=== PATIENT | female | born 1940 | race Caucasian/White ===

== ENCOUNTER → 2019-05-03 10:08 | Outpatient (BNVA) | payer MEDICARE, MEDICAID, SELFPAY | PROVIDERS: Family Provider Nurse Practitioner Family; PCP Nurse Practitioner Family; Visit Provider Nurse Practitioner Family | DX: D64.9 Anemia, unspecified (principal); E11.9 Type 2 diabetes mellitus without complications | CPT/HCPCS: 80053; 80061; 83036; 83540; 85025 ==

== ENCOUNTER → 2019-10-04 10:38 | Outpatient (BNVA) | payer MEDICARE, MEDICAID, SELFPAY | PROVIDERS: Family Provider Nurse Practitioner Family; PCP Family Medicine; Visit Provider Family Medicine | DX: E78.5 Hyperlipidemia, unspecified (principal); E11.9 Type 2 diabetes mellitus without complications; K21.9 Gastro-esophageal reflux disease without esophagitis; A80.9 Acute poliomyelitis, unspecified; I10 Essential (primary) hypertension | CPT/HCPCS: 80053; 80061; 83036; 84443; 85025 ==

== ENCOUNTER 2019-10-12 06:00 | Outpatient (RCR) | payer MEDICARE, MEDICAID, SELFPAY | END 2019-10-18 23:59 | disposition home or self-care (01) | LOC: TPT 06:00 | PROVIDERS: PCP Family Medicine; Referring Provider Family Medicine; Visit Provider Family Medicine | DX: A80.9 Acute poliomyelitis, unspecified (principal) | CPT/HCPCS: 97110; 97161 ==

== ENCOUNTER 2019-10-19 06:00 | Outpatient (RCR) | payer MEDICARE, MEDICAID, SELFPAY | END 2019-11-18 23:59 | disposition home or self-care (01) | LOC: TPT 06:00 | PROVIDERS: PCP Family Medicine; Referring Provider Family Medicine; Visit Provider Family Medicine | DX: A80.9 Acute poliomyelitis, unspecified (principal) | CPT/HCPCS: 97110; 97164 ==

== ENCOUNTER 2019-11-19 06:00 | Outpatient (RCR) | payer MEDICARE, MEDICAID, SELFPAY | END 2019-12-19 23:59 | disposition home or self-care (01) | LOC: TPT 06:00 | PROVIDERS: PCP Family Medicine; Referring Provider Family Medicine; Visit Provider Family Medicine | DX: A80.9 Acute poliomyelitis, unspecified (principal) | CPT/HCPCS: 97110 ==

== ENCOUNTER 2019-12-20 06:00 | Outpatient (RCR) | payer MEDICARE, MEDICAID, SELFPAY | END 2019-12-21 23:00 | disposition home or self-care (01) | LOC: TPT 06:00 | PROVIDERS: PCP Family Medicine; Referring Provider Family Medicine; Visit Provider Family Medicine | DX: A80.9 Acute poliomyelitis, unspecified (principal) | CPT/HCPCS: 97110; 97162 ==

== ENCOUNTER 2020-01-10 10:21 | Outpatient (CLI) | payer MEDICARE, MEDICAID, SELFPAY ==
--- NOTE | 2020-01-10 10:46 | MM_ITS ---
WS: [id number] BILATERAL DIGITAL SCREENING MAMMOGRAPHY WITH CAD CLINICAL INFORMATION: SCREEN HISTORY: Screening mammogram. Reported possible sebaceous cysts in the area of sternum. COMPARISON: TECHNIQUE: Bilateral CC and MLO views. FINDINGS: The breasts are composed of heterogeneous fibroglandular density tissue, which can limit the detectio n of small underlying mass lesions. No suspicious mass, asymmetry, calcifications, or architectural d istortion. No evidence of malignancy. Secretory and vascular calcifications. Lucent centered calcific ations. MM/[place] [id number] IMPRESSION: BI-RADS: 2-Benign FOLLOW UP: 1 Year Follow-up Recommend return to annual screening mammography.
== END 2020-01-10 10:22 | disposition home or self-care (01) ==
LOC: RADSHAW 10:27
PROVIDERS: PCP Family Medicine; Visit Provider Family Medicine
DX: Z12.31 Encounter for screening mammogram for malignant neoplasm of breast (principal)
CPT/HCPCS: 77067

== ENCOUNTER → 2020-05-01 11:44 | Outpatient (BNVA) | payer MEDICARE, MEDICAID, SELFPAY | PROVIDERS: PCP Family Medicine; Visit Provider Family Medicine | DX: E11.9 Type 2 diabetes mellitus without complications (principal); I10 Essential (primary) hypertension; E78.5 Hyperlipidemia, unspecified; E53.8 Deficiency of other specified B group vitamins | CPT/HCPCS: 80053; 80061; 83036; 85025 ==

== ENCOUNTER 2020-06-18 06:00 | Outpatient (RCR) | payer MEDICARE, MEDICAID, SELFPAY | END 2020-07-18 23:59 | disposition home or self-care (01) | LOC: APT 06:00 | PROVIDERS: PCP Family Medicine; Referring Provider Family Medicine; Visit Provider Family Medicine | DX: R53.1 Weakness (principal) | CPT/HCPCS: 97110; 97162 ==

== ENCOUNTER 2020-07-19 06:00 | Outpatient (RCR) | payer MEDICARE, MEDICAID, SELFPAY | END 2020-08-17 23:59 | disposition home or self-care (01) | LOC: APT 06:00 | PROVIDERS: PCP Family Medicine; Referring Provider Family Medicine; Visit Provider Family Medicine | DX: R53.1 Weakness (principal) | CPT/HCPCS: 97110; 97112; 97530 ==

== ENCOUNTER 2020-09-17 18:52 | Inpatient (IN) | payer MEDICARE, MEDICAID, SELFPAY ==
[2020-09-17 19:01] VITALS: PULSE 90; RESP 20; TEMP 36.6; O2SAT 95; BMI 23.0
--- NOTE | 2020-09-17 19:06 | XRR_ITS ---
PROCEDURE INFORMATION: Exam: XR Right Hip Exam date and time: 09/17/2020 7:07 PM Age: 80 years old Clinical indication: Injury or trauma; Blunt trauma (contusions or hematomas); Injury details: Fall x today, pain in right hip TECHNIQUE: Imaging protocol: XR Right hip. Views: 1 view hip with pelvis when performed. COMPARISON: CR Hips Bilat 3-4v wwo Pelv [id number] 10/06/2018 1:44 PM FINDINGS: Bones/joints: There is a subtle right subcapital femur fracture best seen on the frogleg view. No dislocation. No additional acute fracture. There are moderate degenerative changes in the right hip. Soft tissues: Unremarkable. XR/XR hip RT 2-3V wo/w pel* [id number] IMPRESSION: There is a subtle right subcapital femur fracture best seen on the frogleg view.
--- NOTE | 2020-09-17 19:06 | XRR_ITS ---
PROCEDURE INFORMATION: Exam: XR Chest Exam date and time: 09/17/2020 7:07 PM Age: 80 years old Clinical indication: Injury or trauma; Fall; Blunt trauma (contusions or hematomas) TECHNIQUE: Imaging protocol: XR of the chest. Views: 1 view. COMPARISON: CT[place] [id number] 07/29/2018 10:19 AM FINDINGS: Lungs: Unremarkable. No consolidation. Pleural spaces: Unremarkable. No pleural effusion. No pneumothorax. Heart/Mediastinum: Unremarkable. No cardiomegaly. Bones/joints: No acute abnormality. XR/XR chest 1V portable [id number] IMPRESSION: No acute findings.
--- NOTE | 2020-09-17 19:07 | ED_ITS ---
HPI - Fall General: Chief Complaint: Fall Stated Complaint: fall, hip pain Time Seen by Provider: 09/17/20 19:02 Source: patient Mode of arrival: ambulatory Limitations: no limitations History of Present Illness: HPI Narrative: 80-year-old female who fell just prior to arrival. States she fell on hardwood landed on her right hip. States she had severe right hip pain since then especially any movement. She denies any other injuries. She denies hitting her head. She rates her pain currently a 9 out of 10. complaint: fall Onset (ago): minute(s) Fall from: standing Associated symptoms-after fall: Denies abdominal pain, chest pain or headache(s) Review of Systems Const: Denies: fever(s), chills, body aches or change in appetite Eyes: Denies: blurry vision or eye discomfort ENMT: Denies: throat pain or dental pain Card: Denies: chest pain Resp: Denies: dyspnea GI: Denies: abdominal pain, nausea, vomiting or diarrhea : Denies: dysuria Musc: Reports: extremity pain and joint pain Skin/Breast: Denies: rash Neuro: Denies: headache(s) Psych: Denies: depression Artis/Lymph: Denies: easy bruising All/Imm: Denies: urticaria PFSH ED PFSH: Medical History (Updated 09/17/20 @ 20:10 by Katy Walsh MD) Chronic diarrhea Dyslipidemia Essential (primary) hypertension Gastro-esophageal reflux disease without esophagitis Type 2 diabetes mellitus without complications Family History Father Cancer lung Mother Diabetes Stroke Hypertension Social History Smoking and tobacco status: never smoked Alcohol intake: never Adopted: No Lives independently: Yes Household members: none Housing: House Marital status: / Number of children: 3 Highest education level completed: High School Graduate service: No Current occupational status: retired Pets and animals: Yes History of recent travel: No Current gender identity: Female Physical Exam Const: COMMON NORMALS: no acute distress, patient oriented x3 and healthy appearing HENMT: COMMON NORMALS: normocephalic and atraumatic HEAD & SCALP: normocephalic and atraumatic Eye: COMMON NORMALS: Equal, round and reactive pupils present and EOMs intact bilaterally PUPIL: Yes Equal, round and reactive pupils present Neck/C-Spine: COMMON NORMALS: full ROM and supple Chest: COMMONS NORMALS: normal inspection of the chest and normal palpation of entire chest wall Resp: COMMON NORMALS: normal respiratory effort, No retractions, No use of accessory muscles and clear to auscultation bilaterally AUSCULTATION: clear to auscultation bilaterally Cardio: COMMON NORMALS: regular rate, regular rhythm and No murmurs present (Cardio) RATE: regular rate RHYTHM: regular rhythm GI: COMMON NORMALS: Normal to inspection, nondistended, normoactive bowel sounds present, Soft to palpation, non-tender and no masses PALPATION: Yes Soft to palpation Extremity: NARRATIVE EXTREMITY EXAM: tenderness to right hip and pain with rom Neuro: COMMON NORMALS: patient oriented x3, moves all extremities and no focal motor deficits Psych: COMMON NORMALS: mental status grossly normal, Normal thought process present and cooperative THOUGHT PROCESS: Normal thought process present Skin: COMMON NORMALS: no rashes or lesions noted and no wounds GENERAL SKIN EXAM: no rashes or lesions noted Course Vital Signs: Vital signs: Vital Signs Temperature 97.8 F 09/17/20 19:01 Pulse Rate 90 09/17/20 19:01 Respiratory Rate 16 09/17/20 19:13 Pulse Oximetry 95 09/17/20 19:01 MDM - Fall MDM Narrative: Medical decision making narrative: Mary presents here with hip fracture from a fall she is also found to have diverticulitis as well. Patient started on antibiotics. Spoke to hospitalist who will admit I also spoke to orthopedic surgeon who is consulted. Lab Data: Labs: Lab Results 09/17/20 09/17/20 Range/Units 19:15 19:15 WBC 14.1 H (4.0-10.0) 10^3/ uL RBC 4.05 L (4.1-5.3) 10^6/u L Hgb 12.0 (11.5-15.3) g/dL Hct 35.7 L (37.0-47.0) % MCV 88.1 (81-99) fL MCH 29.6 (28.0-34.0) pg MCHC 33.6 (30.0-36.0) g/dL RDW 13.1 (12.1-15.1) % Plt Count 230 (130-400) 10^3/c mm MPV 9.8 (7.4-10.4) fL Neut % (Auto) 84.6 % Lymph % (Auto) 6.9 % Ashley % (Auto) 7.4 % Eos % (Auto) 0.2 % Baso % (Auto) 0.3 % Neut # (Auto) 11.98 H (1.8-7.7) 10^3/u L Lymph # (Auto) 1.0 (0.8-4.8) 10^3/u L Ashley # (Auto) 1.0 H (0.2-0.9) 10^3/u L Eos # (Auto) 0.0 (0.0-0.8) 10^3/u L Baso # (Auto) 0.0 (0.0-0.1) 10^3/u L Nucleated RBC % (a uto) 0 % Nucleated RBCs # 0.0 /100WBC Sodium 131 L (136-145) mmol/L Potassium 3.6 (3.5-5.1) mmol/L Chloride 92 L (98-107) mmol/L Carbon Dioxide 25 (22-29) mmol/L Anion Gap 17.6 (5-19) BUN 14 (8-23) mg/dL Creatinine 0.5 (0.5-0.9) mg/dL GFR Calculation Not Reportable Glucose 150 H (65-115) mg/dL Calculated Osmolal ity 275 L (285-295) mOsm/k g Calcium 9.2 (8.5-10.5) mg/dL Total Bilirubin 0.5 (0.15-1.2) mg/dL AST 26 (0-32) U/L ALT 33 (0-33) U/L Alkaline Phosphata se 77 (35-105) IU/L Total Protein 6.7 (6.6-8.7) g/dL Albumin 4.2 (3.5-5.2) g/dL Globulin 2.5 (1.3-4.6) g/dL Imaging Data^: CXR: Attestation: I personally reviewed and interpreted this imaging study as foll ows: Radiologist's impression: [address] [address] XRay Report Signed Patient: Mary Harmon Unit #: [id number] : 1940 Age/Sex: 80 / F ADM Date: 09/17/20 Loc: ER Room/Bed: Attending Dr: Ordering Provider/Ordering MD: Katy Walsh MD Date of Service: 09/17/20 Procedure(s): XR chest 1V portable [id number] Accession Number(s): [id number] Report Number: [id number] PROCEDURE INFORMATION: Exam: XR Chest Exam date and time: 09/17/2020 7:07 PM Age: 80 years old Clinical indication: Injury or trauma; Fall; Blunt trauma (contusions or hematomas) TECHNIQUE: Imaging protocol: XR of the chest. Views: 1 view. COMPARISON: CTA Chest[place] [id number] 07/29/2018 10:19 AM FINDINGS: Lungs: Unremarkable. No consolidation. Pleural spaces: Unremarkable. No pleural effusion. No pneumothorax. Heart/Mediastinum: Unremarkable. No cardiomegaly. Bones/joints: No acute abnormality. XR/XR chest 1V portable [id number] IMPRESSION: No acute findings. Other CT: Attestation: I personally reviewed and interpreted this imaging study as follows: Radiologist's impression: [address] [address] [address] Scan Report Signed with Addenda Patient: Mary Harmon Unit #: [id number] : 1940 Age/Sex: 80 / F ADM Date: 09/17/20 Loc: ER Room/Bed: Attending Dr: Ordering Provider/Ordering MD: Katy Walsh MD Date of Service: 09/17/20 Procedure(s): CT hip RT wo con* [id number] Accession Number(s): [id number] Report Number: [id number]/CT hip RT wo con* [id number] THIS REPORT CONTAINS FINDINGS THAT MAY BE CRITICAL TO PATIENT CARE. The findings were verbally communicated via telephone conference with KATY WALSH at 8:04 PM CDT on 09/17/2020. The findings were acknowledged and understood. Radiation Dose CTDIVOL = (mGy): DLP = 815.37 (mGy-cm) Addendum Dictated By: Amy Mcmanus Addendum Signed By: Amy Mcmanus Signed Date/Time: 09/17/202005 Addendum Cosigned By: PROCEDURE INFORMATION: Exam: CT Right Lower Extremity Without Contrast, Hip Exam date and time: 09/17/2020 7:41 PM Age: 80 years old Clinical indication: Injury or trauma; Blunt trauma; Injury details: Fall x today onto right hip. C/O severe pain in right hip TECHNIQUE: Imaging protocol: CT of the Right lower extremity without contrast was performed. Exam focused on the hip. Radiation optimization: All CT scans at this facility use at least one of these dose optimization techniques: automated exposure control; mA and/or kV adjustment per patient size (includes targeted exams where dose is matched to clinical indication); or iterative reconstruction. COMPARISON: CR XR hip RT 2-3V wo/w pel* [id number] 09/17/2020 7:05 PM RADIATION DOSE METRICS: Total DLP (mGy-cm): 815.37 FINDINGS: Bones/joints: There is a mildly angulated right subcapital femur fracture. There is osteopenia. There are moderate degenerative changes in the right hip. No additional acute fracture. There is a right hip joint lipohemarthrosis. Soft tissues: Normal. Bowel: There is moderate diverticulitis of the sigmoid colon with wall thickening and abundant fat stranding. Intraperitoneal space: No fluid collection or free air is identified on this exam. Other findings: There is a transitional lumbosacral junction. CT/CT hip RT wo con* [id number] IMPRESSION: 1. There is a mildly angulated right subcapital femur fracture. 2. There is moderate diverticulitis of the sigmoid colon with wall thickening and abundant fat stranding. No abscess or free air is identified on this exam. Radiation Dose CTDIVOL = (mGy): DLP = 815.3 EKG Data^: EKG 1: Attestation: I personally reviewed and interpreted this EKG as follows: EKG interpretation date: 09/17/20 EKG interpretation time: 19:30 Interpretation: No ST elevation normal sinus rhythm heart rate 93 QRS 86 QTC 366 Discharge Plan Discharge Patient Disposition: Admitted As Inpatient Clinical Impression: Diverticulitis Closed hip fracture Qualifiers: Encounter type: initial encounter Laterality: right Qualified Code(s): S72.001A - Fracture of unspecified part of neck of right femur, initial encounter for closed fracture Condition: Stable Coding Level of Care Code ED Global Marketing Intern for Chg Fwd Exam Comprehensive
--- NOTE | 2020-09-17 19:07 | ECG_ITS ---
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 Measurements Intervals [place] Rate: 93 P: 81 [place]: 160 QRS: 50 QRSD: 86 T: -68 QT: 315 QTc: 393 Interpretive Statements SINUS RHYTHM ST DEVIATION AND MODERATE T-WAVE ABNORMALITY, CONSIDER ANTEROLATERAL ISCHEMIA [-0.1+ mV T WAVE IN V3-V6] ST DEVIATION AND MODERATE T-WAVE ABNORMALITY, CONSIDER INFERIOR ISCHEMIA [-0.1+ mV T WAVE IN II/aVF] No previous ECG available for comparison Electronically Signed On 09-17-2020 19:55:03 CDT by Jose Manuel Gibbs M.D. [email or web address]
[2020-09-17 19:13] VITALS: RESP 16
[2020-09-17] MEDS: ondansetron 2 mg/ML SDV 2 mL 4 MG IVP (19:13)
[2020-09-17] MEDS: morphine 4 mg/mL SDV 1 mL IVP (19:13)
[2020-09-17 19:22] LABS: Basophils % 0.3 %; Eosinophils % 0.2 %; Hematocrit 35.7 % (37.0-47.0); Lymphocytes % 6.9 %; Mean Corpuscular HGB Conc 33.6 g/dL (30.0-36.0); Mean Corpuscular Hemoglobin 29.6 pg (28.0-34.0); Mean Corpuscular Volume 88.1 fL (81-99); Mean Platelet Volume 9.8 fL (7.4-10.4); Monocytes % 7.4 %; Neutrophils # 11.98 10^3/uL (1.8-7.7); Neutrophils % 84.6 %; Nucleated Red Blood Cells % 0 %; Platelet Count 230 10^3/cmm (130-400); Red Blood Count 4.05 10^6/uL (4.1-5.3); Red Cell Distribution Width 13.1 % (12.1-15.1); White Blood Count 14.1 10^3/uL (4.0-10.0)
--- NOTE | 2020-09-17 19:27 | XRR_ITS ---
PROCEDURE INFORMATION: Exam: XR Right Knee Exam date and time: 09/17/2020 8:18 PM Age: 80 years old Clinical indication: Injury or trauma; Blunt trauma; Right; Injury details: Fall x today. Pain in RT knee and hip TECHNIQUE: Imaging protocol: XR Right knee. Views: 3 views. COMPARISON: CT hip RT wo con* [id number] 09/17/2020 7:39 PM FINDINGS: Bones/joints: There is no knee joint effusion. [id number] diffuse osteoarthritic changes are noted. There is no intra-articular body. No acute fracture or dislocation. No chondrocalcinosis. Soft tissues: There is no foreign body. Vasculature: There are vascular calcifications. XR/XR knee RT 3V* [id number] IMPRESSION: No acute bony abnormality.
--- NOTE | 2020-09-17 19:27 | CTR_ITS ---
PROCEDURE INFORMATION: Exam: CT Right Lower Extremity Without Contrast, Hip Exam date and time: 09/17/2020 7:41 PM Age: 80 years old Clinical indication: Injury or trauma; Blunt trauma; Injury details: Fall x today onto right hip. C/O severe pain in right hip TECHNIQUE: Imaging protocol: CT of the Right lower extremity without contrast was performed. Exam focused on the hip. Radiation optimization: All CT scans at this facility use at least one of these dose optimization techniques: automated exposure control; mA and/or kV adjustment per patient size (includes targeted exams where dose is matched to clinical indication); or iterative reconstruction. COMPARISON: CR XR hip RT 2-3V wo/w pel* [id number] 09/17/2020 7:05 PM RADIATION DOSE METRICS: Total DLP (mGy-cm): 815.37 FINDINGS: Bones/joints: There is a mildly angulated right subcapital femur fracture. There is osteopenia. There are moderate degenerative changes in the right hip. No additional acute fracture. There is a right hip joint lipohemarthrosis. Soft tissues: Normal. Bowel: There is moderate diverticulitis of the sigmoid colon with wall thickening and abundant fat stranding. Intraperitoneal space: No fluid collection or free air is identified on this exam. Other findings: There is a transitional lumbosacral junction. CT/CT hip RT wo con* [id number] IMPRESSION: 1. There is a mildly angulated right subcapital femur fracture. 2. There is moderate diverticulitis of the sigmoid colon with wall thickening and abundant fat stranding. No abscess or free air is identified on this exam. Radiation Dose CTDIVOL = (mGy): DLP = 815.37 (mGy-cm)
[2020-09-17 19:37] LABS: Alanine Aminotransferase 33 U/L (0-33); Albumin Level 4.2 g/dL (3.5-5.2); Alkaline Phosphatase 77 IU/L (35-105); Anion Gap 17.6 (5-19); Aspartate Amino Transferase 26 U/L (0-32); Blood Urea Nitrogen 14 mg/dL (8-23); Calcium 9.2 mg/dL (8.5-10.5); Carbon Dioxide 25 mmol/L (22-29); Chloride 92 mmol/L (98-107); Globulin 2.5 g/dL (1.3-4.6); Glucose 150 mg/dL (65-115); Osmolality Calculated 275 mOsm/kg (285-295); Potassium 3.6 mmol/L (3.5-5.1); Sodium 131 mmol/L (136-145); Total Bilirubin 0.5 mg/dL (0.15-1.2); Total Protein 6.7 g/dL (6.6-8.7)
[2020-09-17] MEDS: metroNIDAZOLE IV 500 MG/100 ML PREMIX 100 MG IV (21:03)
[2020-09-17 21:10] VITALS: BP 140/64; PULSE 98; RESP 18; O2SAT 96
[2020-09-17 21:13] LABS: INR 1.14 (0.8-1.2)
--- NOTE | 2020-09-17 21:31 | PM.HP ---
Providers/Chief Complaint Admitting Physician: Yazmin Carlson MD Primary Care Provider: Sariah Nichole MD Chief Complaint: fall, hip pain History of Present Illness Mary Harmon is a 80 year old female who has history of polio of right leg, type 2 diabetes, chronic diarrhea presented today after sustaining a fall at home. She lives alone and manages her daily activities on her own, today she was planning to visit her new neighbors, she was packing her medicine bag which was beside her chair, when she got up her left foot got stuck in the strap of medicine bag and she fell on her right hip. She started experiencing excruciating pain. EMS was called who brought her to the ER for further evaluation. She is denying chest pain, shortness of breath, syncopal events. No recent change in bowel movement, she has chronic history of diarrhea, previous colonoscopies were unremarkable as per the patient, diagnostics in the ER revealed moderate leukocytosis however she does not meet sepsis criteria, pelvic imaging revealed subcapital right femoral fracture, and diverticulitis incidental finding. Patient is complaining of hypogastric region discomfort, she has been experiencing nausea but no episode of emesis, she has not noticed any fever at home. She is describing her pain as sharp radiating towards her mid epigastric region. In the ER she received metronidazole and ciprofloxacin. Review of Systems Const: Denies: fever(s), chills or body aches Eyes: Denies: change in vision ENMT: Denies: throat pain Card: Denies: chest pain Resp: Denies: dyspnea GI: Reports: abdominal pain and diarrhea : Denies: flank pain Musc: Reports: joint pain, joint swelling, joint stiffness, limited range of motion and muscle cramps Skin/Breast: Reports: lesions Neuro: Reports: difficulty walking; Denies: headache(s) or frequent falls Psych: Denies: anxiety Endo: Denies: polyuria Artis/Lymph: Denies: easy bruising All/Imm: Denies: urticaria Medications/Allergies Home Medications Medication Instructions Recorded Confirmed Last Taken Type ascorbic acid (vitamin C) 500 mg 1,000 mg PO DAILY@0600 cap 04/22/19 09/17/20 09/17/20 History capsule biotin 1,000 mcg chewable tablet 1,000 mcg PO DAILY@1700 tab 04/22/19 09/17/20 09/17/20 History cholecalciferol (vitamin D3) 25 1,000 unit PO DAILY@0600 cap 04/22/19 09/17/20 09/17/20 History mcg (1,000 unit) capsule blood sugar diagnostic #50 each 05/05/19 09/17/20 Unknown Rx blood sugar diagnostic #50 each 05/06/19 09/17/20 Unknown Rx lancets 30 gauge #100 each 05/06/19 09/17/20 Unknown Rx nitroglycerin 0.4 mg sublingual 0.4 mg SUBLINGUAL Q5M PRN #25 tab 08/10/19 09/17/20 Unknown Rx tablet Right knee brace hinged #1 ea 11/18/19 09/17/20 Unknown Rx Right leg brace straps #1 ea 11/18/19 09/17/20 Unknown Rx Straps for leg splints #1 ea 05/22/20 09/17/20 Unknown Rx Diabetic shoes with build up on #1 ea 05/24/20 09/17/20 Unknown Rx right for heighth Fish Oil Concentrate 1,000 mg PO BID@0600,1700 09/17/20 09/17/20 09/17/20 History amlodipine 10 mg PO DAILY@0600 09/17/20 09/17/20 09/17/20 History aspirin 81 mg PO DAILY@0600 09/17/20 09/17/20 09/17/20 History buspirone 15 mg PO BID@0600,1700 09/17/20 09/17/20 09/17/20 History calcium carbonate [Calcium 600] 600 mg PO BID@0600,1700 09/17/20 09/17/20 09/17/20 History cyanocobalamin (vitamin B-12) 1,000 mcg IM Q30D 09/17/20 09/17/20 Unknown History famotidine 20 mg PO BID@0600,1700 09/17/20 09/17/20 09/17/20 History ferrous sulfate 325 mg PO BID@0600,1700 09/17/20 09/17/20 09/17/20 History isosorbide mononitrate 60 mg PO DAILY@0600 09/17/20 09/17/20 09/17/20 History lisinopril-hydrochlorothiazide 1 tab PO BID@0600,1700 09/17/20 09/17/20 09/17/20 History metoprolol tartrate 75 mg PO BID@0600,1700 09/17/20 09/17/20 09/17/20 History pyridoxine (vitamin B6) 50 mg PO DAILY@0600,1700 09/17/20 09/17/20 09/17/20 History sitagliptin-metformin [Janumet XR] 1 tab PO BID@0600,1700 09/17/20 09/17/20 09/17/20 History Allergies Allergy/AdvReac Type Severity Reaction Status Date / Time No Known Allergies Allergy Verified 07/03/20 14:59 PFSH Acute PFSH: Medical History Acquired deformity of both feet foot drop and pronation with callous Acquired short leg syndrome on right Anxiety Breast nodule right Chronic diarrhea Chronic instability of knee, right knee Degenerative arthritis of knee right Dyslipidemia Elevated serum alkaline phosphatase level Encounter for counseling for care management of patient with chronic conditions and complex health needs using nurse-based model Essential (primary) hypertension Gait disorder Gastro-esophageal reflux disease without esophagitis History of post-polio syndrome Hyponatremia Left ankle instability Osteoporosis Tricuspid valve regurgitation, nonrheumatic Type 2 diabetes mellitus without complications Vitamin B12 deficiency Surgical History H/O: hysterectomy (~1991) Hx of cholecystectomy (~2001) Hx of colonoscopy (~2012) Family History Father Cancer lung Mother Diabetes Stroke Hypertension Social History Smoking and tobacco status: never smoked Alcohol intake: never Adopted: No Lives independently: Yes Household members: none Housing: House Marital status: / Number of children: 3 Highest education level completed: High School Graduate service: No Current occupational status: retired Pets and animals: Yes History of recent travel: No Current gender identity: Female Vitals/I&O/Wt Last Vital Signs Temp 97.8 F 09/17/20 19:01 Pulse 98 09/17/20 21:10 Resp 18 09/17/20 21:10 BP 140/64 09/17/20 21:10 Pulse Ox 96 09/17/20 21:10 Weight last 48 hrs Weight 58.967 kg Physical Exam Narrative: EXAM NARRATIVE: Very pleasant elderly female Was laying comfortably in her bed in supine position S1, S2 no arrhythmia or murmur appreciated no signs of heart failure Abdomen soft mild tenderness in mid epigastric and hypogastric region no signs of peritonitis rigidity or guarding No acute respite distress saturating well on room air EOMI, PERRL no acute neurological deficits noted Awake alert oriented x3 Appropriate mood and affect Right leg shortened as compared to left, weak dorsalis pedis however posterior tibial 2+ no active sign of ischemia gangrene or ulcer No lower extremity edema gangrene or ulcer or signs of cellulitis Urinary Catheter Management^: Vargas: Cath Placed During This Visit: yes Urinary Catheter Date of Insertion: 09/17/20 Urinary Catheter Time of Insertion: 21:26 Data : 09/17/20 19:15 09/17/20 19:15 A&P Assessment and plan (1) Closed hip fracture: Status: Acute Qualifiers: Encounter type: initial encounter Laterality: right Qualified Code(s): S72.001A - Fracture of unspecified part of neck of right femur, initial encounter for closed fracture (2) Diverticulitis: Status: Acute (3) Polio: Status: Acute (4) Type 2 diabetes mellitus without complications: Status: Acute Qualifiers: Diabetes mellitus supervisor intermediates insulin use: without supervisor intermediates use Qualified Code(s): E11.9 - Type 2 diabetes mellitus without complications (5) Chronic diarrhea: Status: Acute Additional A&P Information Closed right hip fracture Dr. Rojo consulted: I am going to keep her n.p.o. for diverticulitis and start antibiotics Morphine for analgesia , Patient lives alone and has polio of right leg, likely will need SNF at discharge Vargas catheter placement Perioperative: Our RCRI criteria 1, no cardiac work-up needed, hold lisinopril, will resume Metroprolol tartrate for now, she is not on any Plavix, Diverticulitis without sepsis She has moderate leukocytosis however no febrile episodes, hemodynamically stable We will keep her on Zosyn for now N.p.o. D5 normal saline maintenance fluid rate Patient is endorsing chronic diarrhea, previous colonoscopy was normal as per the patient No previous history of cancer Will need outpatient colonoscopy Type 2 diabetes: She is getting D5 normal saline maintenance fluids, we will keep her on low-dose sliding scale Full code N.p.o. DVT prophylaxis SCDs Attestations Medical Necessity Statement*: Anticipating stay in the hospital cross more than 2 midnights for management of diverticulitis and right subcapital femur fracture Time Spent in Patient Care: (>than 50% of time spent in counselling and/or direct pt care on unit). 30mins Coding Level of Care Code Acute Bench Worker Apprentice for Chg Fwd Diagnoses Closed hip fracture S72.001A Encounter type: initial encounter Laterality: right Diverticulitis K57.92 Polio A80.9 Type 2 diabetes mellitus without complications E11.9 Diabetes mellitus supervisor intermediates insulin use: without supervisor intermediates use Chronic diarrhea K52.9
[2020-09-17 21:33] LABS: Add Urine Microscopic? NO; Charge for UA Resulting for Rev
[2020-09-17 21:35] LABS: Bilirubin Urine Neg (Negative); Blood Urine Neg (Negative); Glucose Urine UA Norm (Normal); Ketones Urine 1+ (Negative); Leukocyte Esterase Urine Negative (Negative); Nitrate Urine Negative (Negative); Protein Urine Neg (Negative); Urine Color Yellow (Yellow); Urobilinogen Urine Norm (Negative); pH Urine 5 (5-7)
[2020-09-17 21:54] VITALS: BP 126/92; PULSE 98; RESP 18; O2SAT 94
[2020-09-17 22:12] VITALS: BP 127/68; PULSE 102; RESP 16; TEMP 37.1; O2SAT 98
[2020-09-17] MEDS: ciprofloxacin 400 MG/200 ML PREMIX 200 MG IV (22:37)
[2020-09-17] MEDS: dextrose 5%-sod chloride 0.45% 1,000 ML 30 ML IV (22:37)
[2020-09-18] VITALS (13 sets, daily range): BP systolic 112–154; BP diastolic 49–86; PULSE 65–110; RESP 15–20; TEMP 36.3–36.9; O2SAT 93–99
--- NOTE | 2020-09-18 | XR_ITS ---
WS: [id number] INTRAOPERATIVE IMAGING TECHNIQUE: 3 fluoroscopic images obtained. CLINICAL INFORMATION: ORIF hip Fluoroscopy time 87.9 seconds COMPARISON: None. FINDINGS: Cannulated screw fixation across the femoral neck. 3 fixation screws. Hardware appears in good positi on. XR/XR hip RT 2-3V wo/w pel* [id number] IMPRESSION: Images obtained for intraoperative purposes.
--- NOTE | 2020-09-18 | SCC_ITS ---
Procedure Done: Open reduction internal fixation right subcapital hip fracture utilizing Marcellus cannulated screws 3 87.9 seconds of fluoroscopic guidance, for a cumulative dose of 9.74 mGy, was provided to Dr. Rojo by the radiology department. C-arm images of the RIGHT hip were saved for the patient's permanent record. [facility]
[2020-09-18 05:48] LABS: Basophils % 0.3 %; Eosinophils % 0.6 %; Hematocrit 32.1 % (37.0-47.0); Hemoglobin 10.7 g/dL (11.5-15.3); Lymphocytes % 15.5 %; Mean Corpuscular HGB Conc 33.3 g/dL (30.0-36.0); Mean Corpuscular Hemoglobin 29.2 pg (28.0-34.0); Mean Corpuscular Volume 87.5 fL (81-99); Mean Platelet Volume 10.1 fL (7.4-10.4); Monocytes # 0.7 10^3/uL (0.2-0.9); Monocytes % 11.1 %; Neutrophils # 4.68 10^3/uL (1.8-7.7); Nucleated Red Blood Cells % 0 %; Platelet Count 195 10^3/cmm (130-400); Red Blood Count 3.67 10^6/uL (4.1-5.3); Red Cell Distribution Width 12.9 % (12.1-15.1); White Blood Count 6.5 10^3/uL (4.0-10.0)
[2020-09-18] MEDS: metoprolol tartrate 50 mg Tablet 75 MG PO ×2 (06:04→17:46)
[2020-09-18 06:09] LABS: Anion Gap 13.3 (5-19); Blood Urea Nitrogen 9 mg/dL (8-23); Calcium 8.5 mg/dL (8.5-10.5); Carbon Dioxide 28 mmol/L (22-29); Chloride 94 mmol/L (98-107); Glucose 132 mg/dL (65-115); Osmolality Calculated 275 mOsm/kg (285-295); Potassium 3.3 mmol/L (3.5-5.1); Sodium 132 mmol/L (136-145)
[2020-09-18 06:17] LABS: Glucose Point of Care 144 mg/dL (70-110)
--- NOTE | 2020-09-18 07:35 | PM.PN ---
Subjective Subjective: Interval history: Overnight labs and H&P was reveiwed ,no acute interim events plan for OR intervention today Vitals/I&O/Wt Last Vital Signs Temp 98.4 F 09/18/20 15:15 Pulse 76 09/18/20 15:43 Resp 18 09/18/20 15:43 BP 131/62 09/18/20 15:15 Pulse Ox 93 09/18/20 15:43 09/18/20 09/18/20 09/18/20 06:59 14:59 22:59 Intake Total 200 / 300 150 / 150 Output Total 200 / 200 549 / 549 500 / 1049 Balance 0 / 100 -399 / -399 -500 / -899 Weight last 48 hrs Weight 58.967 kg Physical Exam Urinary Catheter Management^: Vargas: Cath Placed During This Visit: yes Reason for Continuing Indwelling Catheter: Accurate Measurement of Urinary Output in Critically Ill Patients Urinary Catheter Date of Insertion: 09/17/20 Urinary Catheter Time of Insertion: 21:26 Data : 09/18/20 05:12 09/18/20 05:12 A&P Assessment and plan (1) Closed hip fracture: Status: Acute Qualifiers: Encounter type: initial encounter Laterality: right Qualified Code(s): S72.001A - Fracture of unspecified part of neck of right femur, initial encounter for closed fracture (2) Diverticulitis: Status: Acute (3) Polio: Status: Acute (4) Type 2 diabetes mellitus without complications: Status: Acute Qualifiers: Diabetes mellitus superintendent container terminal insulin use: without residential use Qualified Code(s): E11.9 - Type 2 diabetes mellitus without complications (5) Chronic diarrhea: Status: Acute Additional A&P Information Closed right hip fracture Dr. Rojo consulted: Plan for OR today Perioperative: Our RCRI criteria 1, no cardiac work-up needed, hold lisinopril, will resume Metroprolol tartrate for now, she is not on any Plavix, Diverticulitis without sepsis She has moderate leukocytosis however no febrile episodes, hemodynamically stable We will keep her on Zosyn for now N.p.o. D5 normal saline maintenance fluid rate Patient is endorsing chronic diarrhea, previous colonoscopy was normal as per the patient No previous history of cancer Will need outpatient colonoscopy Type 2 diabetes: She is getting D5 normal saline maintenance fluids, we will keep her on low-dose sliding scale Full code N.p.o. DVT prophylaxis SCDs Attestations Medical Necessity Statement*: planned surgery today Coding Level of Care Code Acute Pick Up for Chg Fwd Diagnoses Closed hip fracture S72.001A Encounter type: initial encounter Laterality: right Diverticulitis K57.92 Polio A80.9 Type 2 diabetes mellitus without complications E11.9 Diabetes mellitus superintendent container terminal insulin use: without residential use Chronic diarrhea K52.9
[2020-09-18] MEDS: piperacillin-tazobactam 3.375 GM in sodium chloride 0.9% (plus) 50 ML IV ×2 (08:36→17:47)
--- NOTE | 2020-09-18 10:49 | PC.CHAP ---
Pastoral Care Encounter/Spiritual Assessment Type of Contact [] Declined dispatch lead visit [] Patient/Family/Request visit [] Outpatient visit [] Follow-up visit [] Physician referral [] Code/Alert [x] Routine visit [] Staff referral [] Actively dying [] Patient sleeping [] Family support [] [] Out of room [] Palliative care [] [] Receiving care in room [] Pre-surgical visit [] Trauma [] Long length of stay [] ICU visit [] Other: Relational/Emotional Strength [x] Patient feels connected with others/family/visitors/staff [] Distress [] Loneliness/isolation [] Abandonment Spirituality of Patient [x] Person of Adriana [x] Attends Christian of their Adriana [] Believes in Prayer [] Reads Bible or Advent materials [] There are Spiritual issues to be addressed Straddle Bug Driver Interventions [x] Prayer [] Active listening [x] Non-anxious presence x[] Spiritual/emotional support [] Crisis/trauma care [] Spiritual counseling [] Bereavement support [] Provided bereavement packet [] Provided Bible/devotional materials [] Provided toy/stuffed animal, coloring book to patient or family member [] Provided Communion [] Anointing/Parsons [] Salvation [x] Completed spiritual assessment [] Other: Impact on Illness or Injury [] Angry [] Fearful [] Anxious [] Often cries [] Exhaustion [] Unable to work [] Unable to attend adventism [] Unable to walk/stand [] Unable to read [] Unable to drive [] Unable to eat/drink [] Unable to sleep [] Unable to be with family [] Patient intubated [] Other: Summary Time spent with patient 15 min
[2020-09-18 11:29] LABS: Glucose Point of Care 154 mg/dL (70-110)
--- NOTE | 2020-09-18 11:50 | P.CONIM_ITS ---
Providers/Reason For Consult Consulting Physician/Specialty*: Luz Rojo MD Reason for Consult*: Right subcapital hip fracture Attending Physician: Candy Wilkinson MD Primary Care Provider: Sariah Nichole MD History of Present Illness History of Present Illness Mary Harmon is a 80 year old female state of health when she fell at home. She states she her feet caught up in a purse with a long strap on it. The patient has a history of polio to her right leg. She also has chronic diarrhea as well as type 2 diabetes. She does live alone and manages at home alone. She is seen in the preoperative holding area with her family. Patient fell directly onto her right side and had significant pain. She called for an ambulance, and she was brought to the emergency room. Upon initial presentation to the emergency department, x-rays were suspicious for subcapital hip fracture, and this was confirmed by CT. Review of Systems Const: Denies: fever(s), chills, body aches or change in appetite Eyes: Denies: change in vision, blurry vision or eye discomfort ENMT: Denies: throat pain or dental pain Card: Denies: chest pain Resp: Denies: dyspnea GI: Reports: abdominal pain and diarrhea; Denies: nausea or vomiting : Denies: flank pain or dysuria Musc: Reports: extremity pain, joint pain, joint swelling, joint stiffness, limited range of motion and muscle cramps Skin/Breast: Reports: lesions; Denies: rash Neuro: Reports: difficulty walking; Denies: headache(s) or frequent falls Psych: Denies: anxiety or depression Endo: Denies: polyuria Artis/Lymph: Denies: easy bruising All/Imm: Denies: urticaria Meds/Allergies Home Medications and Allergies Home Medications Medication Instructions Recorded Confirmed Last Taken Type ascorbic acid (vitamin C) 500 mg 1,000 mg PO DAILY@0600 cap 04/22/19 09/17/20 09/17/20 History capsule biotin 1,000 mcg chewable tablet 1,000 mcg PO DAILY@1700 tab 04/22/19 09/17/20 09/17/20 History cholecalciferol (vitamin D3) 25 1,000 unit PO DAILY@0600 cap 04/22/19 09/17/20 09/17/20 History mcg (1,000 unit) capsule blood sugar diagnostic #50 each 05/05/19 09/17/20 Unknown Rx blood sugar diagnostic #50 each 05/06/19 09/17/20 Unknown Rx lancets 30 gauge #100 each 05/06/19 09/17/20 Unknown Rx nitroglycerin 0.4 mg sublingual 0.4 mg SUBLINGUAL Q5M PRN #25 tab 08/10/19 09/17/20 Unknown Rx tablet Right knee brace hinged #1 ea 11/18/19 09/17/20 Unknown Rx Right leg brace straps #1 ea 11/18/19 09/17/20 Unknown Rx Straps for leg splints #1 ea 05/22/20 09/17/20 Unknown Rx Diabetic shoes with build up on #1 ea 05/24/20 09/17/20 Unknown Rx right for heighth Fish Oil Concentrate 1,000 mg PO BID@0600,1700 09/17/20 09/17/20 09/17/20 History amlodipine 10 mg PO DAILY@0600 09/17/20 09/17/20 09/17/20 History aspirin 81 mg PO DAILY@0600 09/17/20 09/17/20 09/17/20 History buspirone 15 mg PO BID@0600,1700 09/17/20 09/17/20 09/17/20 History calcium carbonate [Calcium 600] 600 mg PO BID@0600,169909/17/20 09/17/20 09/17/20 History cyanocobalamin (vitamin B-12) 1,000 mcg IM Q30D 09/17/20 09/17/20 Unknown Hi story famotidine 20 mg PO BID@0600,0 09/17/20 09/17/20 09/17/20 History ferrous sulfate 325 mg PO BID@0600,1700 09/17/20 09/17/20 09/17/20 History isosorbide mononitrate 60 mg PO DAILY@0600 09/17/20 09/17/20 09/17/20 History lisinopril-hydrochlorothiazide 1 tab PO BID@0600,1700 09/17/20 09/17/20 09/17/20 History metoprolol tartrate 75 mg PO BID@0600,1700 09/17/20 09/17/20 09/17/20 History pyridoxine (vitamin B6) 50 mg PO DAILY@0600,1700 09/17/20 09/17/20 09/17/20 History sitagliptin-metformin [Janumet XR] 1 tab PO BID@0600,1700 09/17/20 09/17/20 09/17/20 History Allergies Allergy/AdvReac Type Severity Reaction Status Date / Time No Known Allergies Allergy Verified 07/03/20 14:59 Current Medications Current Medications Generic Name Dose Route Start Last Admin Trade Name Antonioq PRN Reason Stop Dose Admin Dextrose/Sodium Chloride 1,000 mls @ 30 mls/hr 09/17/20 22:11 09/17/20 22:37 Dextrose 5%-Sod Chloride 0.45% IV 30 mls/hr .Q24H NANDO Administration Piperacillin Sod/Tazobactam 50 mls @ 12.5 mls/hr 09/18/20 09:00 09/18/20 08:36 Sod 3.375 gm/ Sodium Chloride IV 12.5 mls/hr Q8H NANDO Administration Protocol Insulin Aspart 0 unit 09/18/20 08:00 09/18/20 11:01 Insulin Aspart 100 Unit/1 Ml SUBCUT Not Given WM&BEDTIME NANDO Protocol Metoprolol Tartrate 75 mg 09/18/20 06:00 09/18/20 06:04 Metoprolol Tartrate 50 Mg Tablet PO 75 mg BID@0600,1700 NANDO Administration PFSH Acute PFSH: Medical History Acquired deformity of both feet foot drop and pronation with callous Acquired short leg syndrome on right Anxiety Breast nodule right Chronic diarrhea Chronic instability of knee, right knee Degenerative arthritis of knee right Dyslipidemia Elevated serum alkaline phosphatase level Encounter for counseling for care management of patient with chronic conditions and complex health needs using nurse-based model Essential (primary) hypertension Gait disorder Gastro-esophageal reflux disease without esophagitis History of post-polio syndrome Hyponatremia Left ankle instability Osteoporosis Tricuspid valve regurgitation, nonrheumatic Type 2 diabetes mellitus without complications Vitamin B12 deficiency Surgical History H/O: hysterectomy (~1991) Hx of cholecystectomy (~2001) Hx of colonoscopy (~2012) Family History Father Cancer lung Mother Diabetes Stroke Hypertension Social History Smoking and tobacco status: never smoked Alcohol intake: never Adopted: No Lives independently: Yes Household members: none Housing: House Marital status: / Number of children: 3 Highest education level completed: High School Graduate service: No Current occupational status: retired Pets and animals: Yes History of recent travel: No Current gender identity: Female Dietary Habits: Current diet type/program: regular Caffeine: Yes Safety: Seatbelt use: always Home Safety: Water heater temperature set < 120 degrees: Yes Working smoke detector in home: Yes Fire extinguisher in home: Yes Carbon monoxide detector in home: Yes Vitals/I&O/Wt Last Vital Signs Temp 98.3 F 09/18/20 10:52 Pulse 68 09/18/20 10:52 Resp 17 09/18/20 10:52 BP 133/67 09/18/20 10:52 Pulse Ox 98 09/18/20 10:52 09/17/20 09/18/20 09/18/20 22:59 06:59 14:59 Intake Total 100 / 100 200 / 300 Output Total 200 / 200 Balance 100 / 100 0 / 100 Weight last 48 hrs Weight 130 lb Physical Exam Const: COMMON NORMALS: no acute distress, average body habitus, patient oriented x3 and alert GENERAL APPEARANCE: cooperative and comfortable ORIENTATION/CONSCIOUSNESS: Yes awake HENMT: COMMON NORMALS: normocephalic and atraumatic HEAD & SCALP: normocephalic and atraumatic Eye: GENERAL EYE: appearance normal, both eyes and all related structures Chest: COMMONS NORMALS: normal inspection of the chest Resp: COMMON NORMALS: normal respiratory effort EFFORT & INSPECTION: Yes able to speak in complete sentences and Yes symmetric chest movement Extremity: RIGHT LOWER EXTREMITY: Yes hip joint Right hip: Yes inspection (There is no significant swelling about the hip.), Yes palpation (Minimal to no tenderness to palpation), Yes ROM (Exquisite tenderness to range of motion.) and Yes neurovascular exam (Intact distally aside from deficiencies secondary to polio) Neuro: COMMON NORMALS: patient oriented x3 SENSORIUM/ORIENTATION: Yes alert Psych: COMMON NORMALS: mental status grossly normal APPEARANCE: Yes grossly normal ATTITUDE: Yes calm and Yes engaged ATTENTION/CONCENTRATION: Yes attention grossly intact Skin: COMMON NORMALS: no rashes or lesions noted GENERAL SKIN EXAM: no rashes or lesions noted Urinary Catheter Management^: Vargas: Cath Placed During This Visit: yes Reason for Continuing Indwelling Catheter: Accurate Measurement of Urinary Output in Critically Ill Patients Urinary Catheter Date of Insertion: 09/17/20 Urinary Catheter Time of Insertion: 21:26 Data Imaging^: Xray Ortho: I personally reviewed and interpreted this imaging study as follows: My impression: X-rays are reviewed, and these are suspicious for nondisplaced slightly impacted right subcapital hip fracture. There is no significant shortening. Other CT: I personally reviewed and interpreted this imaging study as follows: My impression: CT confirms right subcapital hip fracture, impacted with minimal to no displacement. A&P Assessment and plan (1) Subcapital fracture of right hip: Patient was admitted through the emergency department, and I was consulted with regard to her minimally displaced impacted right subcapital hip fracture. I reviewed imaging studies including x-rays and CT of the hip. The patient does have an impacted subcapital hip fracture, and with minimal to no displacement, she is a candidate for cannulated screws. This treatment plan including its risks and complications are discussed with the patient and her family. She agrees to the surgical procedure. Consents were signed. Status: Acute Qualifiers: Encounter type: initial encounter Fracture type: closed Qualified Code(s): S72.011A - Unspecified intracapsular fracture of right femur, initial encounter for closed fracture Consult Attestations Medical Necessity Statement: Patient requires inpatient hospitalization for fracture care following subcapital hip fracture. Coding Level of Care Code Acute Privacy Compliance Manager for [facility] Exam Detailed Diagnoses Subcapital fracture of right hip S72.011A Encounter type: initial encounter Fracture type: closed
--- NOTE | 2020-09-18 13:08 | PC.NURSE ---
surgery pt taken down to surgery.
[2020-09-18] MEDS: CELEcoxib 200 mg Capsule 400 MG PO ×2 (13:25→13:29)
--- NOTE | 2020-09-18 13:25 | P.ANESASSM_ITS ---
Pre-Anesthetic Assessment Pre-Anesthetic Assessment: Height/Weight: Height 1.6 m Weight 58.967 kg Temp Pulse Resp BP Pulse Ox 97.5 F L 72 18 135/59 97 09/18/20 13:04 09/18/20 13:04 09/18/20 13:04 09/18/20 13:04 09/18/20 13:04 Preop Diagnosis: Right Subcapital Hip Fracture Proposed Procedure: Operation Date: 09/18/20 18:45 Proposed Procedures p Hip Screw(Right) - Luz Rojo MD Was Beta Surya taken within 24 hours: Yes Was Clonidine taken within 24 hours: N/A Last intake: Intake Last Liquid Date 09/18/20 Last Liquid Time 05:00 Last Solid Date 09/17/20 Last Solid Time 12:00 Social: Social History: No alcohol and No tobacco Exam: Pre-Anes Outpt Exam: alert, oriented x 3, clear to auscultation bilaterally and regular rate & rhythm Airway: Submandibular: WNL Cervical ROM: WNL MP: 2 Dentition: Full CV/HEM: CV/HEM: CAD and HTN GI: GI: GERD Metabolic: Metabolic: DM and Hyperlipidemia Anesthetic Plan: ASA status: 3 Anesthesia: Choice Risk of > 500 ml blood loss (7ml/kg in children): No Meds/Allergies Current Medications: Current Medications Generic Name Dose Route Start Last Admin Trade Name Freq PRN Reason Stop Dose Admin Dextrose/Sodium Ch loride 1,000 mls @ 30 ml s/hr 09/17/20 22:11 09/17/20 22:37 Dextrose 5%-Sod Chloride 0.45% IV 30 mls/hr .Q24H NANDO Administration Piperacillin Sod/T azobactam 50 mls @ 12.5 mls /hr 09/18/20 09:00 09/18/20 13:07 Sod 3.375 gm/ So dium Chloride IV Infused Q8H NANDO Infusion Protocol Insulin Aspart 0 unit 09/18/20 08:00 09/18/20 11:01 Insulin Aspart 1 00 Unit/1 Ml SUBCUT Not Given WM&BEDTIME NANDO Protocol Metoprolol Tartrat e 75 mg 09/18/20 06:00 09/18/20 06:04 Metoprolol Tartr ate 50 Mg Tablet PO 75 mg BID@0600,1700 NANDO Administration PFSH Anesthesia PFSH: Medical History Acquired deformity of both feet foot drop and pronation with callous Acquired short leg syndrome on right Anxiety Breast nodule right Chronic diarrhea Chronic instability of knee, right knee Degenerative arthritis of knee right Dyslipidemia Elevated serum alkaline phosphatase level Encounter for counseling for care management of patient with chronic conditions and complex health needs using nurse-based model Essential (primary) hypertension Gait disorder Gastro-esophageal reflux disease without esophagitis History of post-polio syndrome Hyponatremia Left ankle instability Osteoporosis Tricuspid valve regurgitation, nonrheumatic Type 2 diabetes mellitus without complications Vitamin B12 deficiency Surgical History H/O: hysterectomy (~1991) Hx of cholecystectomy (~2001) Hx of colonoscopy (~2012) Family History Father Cancer lung Mother Diabetes Stroke Hypertension Social History Smoking and tobacco status: never smoked Alcohol intake: never Adopted: No Lives independently: Yes Household members: none Housing: House Marital status: / Number of children: 3 Highest education level completed: High School Graduate service: No Current occupational status: retired Pets and animals: Yes History of recent travel: No Current gender identity: Female Data Anesthesia CBC & Chem 7: 09/18/20 05:12 09/18/20 05:12 Other Labs: Laboratory Results - last 48 hr 09/17/20 09/17/20 09/17/20 19:15 19:15 20:54 WBC 14.1 H RBC 4.05 L Hgb 12.0 Hct 35.7 L MCV 88.1 MCH 29.6 MCHC 33.6 RDW 13.1 Plt Count 230 MPV 9.8 Neut % (Auto) 84.6 Lymph % (Auto) 6.9 [place] % (Auto) 7.4 Eos % (Auto) 0.2 Baso % (Auto) 0.3 Neut # (Auto) 11.98 H Lymph # (Auto) 1.0 [place] # (Auto) 1.0 H Eos # (Auto) 0.0 Baso # (Auto) 0.0 Nucleated RBC % (auto) 0 Nucleated RBCs # 0.0 PT 15.00 H INR 1.14 Sodium 131 L Potassium 3.6 Chloride 92 L Carbon Dioxide 25 Anion Gap 17.6 BUN 14 Creatinine 0.5 GFR Calculation Not Reportable Glucose 150 H POC Glucose Calculated Osmolality 275 L Calcium 9.2 Total Bilirubin 0.5 AST 26 ALT 33 Alkaline Phosphatase 77 Total Protein 6.7 Albumin 4.2 Globulin 2.5 Urine Color Urine Appearance Urine pH Ur Specific [place] Urine Protein Urine Glucose (UA) Urine Ketones Urine Blood Urine Nitrate Urine Bilirubin Urine Urobilinogen Ur Leukocyte Esterase 09/17/20 09/18/20 09/18/20 21:25 05:12 05:12 WBC 6.5 RBC 3.67 L Hgb 10.7 L Hct 32.1 L MCV 87.5 MCH 29.2 MCHC 33.3 RDW 12.9 Plt Count 195 MPV 10.1 Neut % (Auto) 72.0 Lymph % (Auto) 15.5 [place] % (Auto) 11.1 Eos % (Auto) 0.6 Baso % (Auto) 0.3 Neut # (Auto) 4.68 Lymph # (Auto) 1.0 [place] # (Auto) 0.7 Eos # (Auto) 0.0 Baso # (Auto) 0.0 Nucleated RBC % (auto) 0 Nucleated RBCs # 0.0 PT INR Sodium 132 L Potassium 3.3 L Chloride 94 L Carbon Dioxide 28 Anion Gap 13.3 BUN 9 Creatinine 0.3 L GFR Calculation Not Reportable Glucose 132 H POC Glucose Calculated Osmolality 275 L Calcium 8.5 Total Bilirubin AST ALT Alkaline Phosphatase Total Protein Albumin Globulin Urine Color Yellow Urine Appearance Sl cloudy A Urine pH 5 Ur Specific [place] 1.020 Urine Protein Neg Urine Glucose (UA) Norm Urine Ketones 1+ H Urine Blood Neg Urine Nitrate Negative Urine Bilirubin Neg Urine Urobilinogen Norm Ur Leukocyte Esterase Negative 09/18/20 09/18/20 06:12 10:51 WBC RBC Hgb Hct MCV MCH MCHC RDW Plt Count MPV Neut % (Auto) Lymph % (Auto) [place] % (Auto) Eos % (Auto) Baso % (Auto) Neut # (Auto) Lymph # (Auto) [place] # (Auto) Eos # (Auto) Baso # (Auto) Nucleated RBC % (auto) Nucleated RBCs # PT INR Sodium Potassium Chloride Carbon Dioxide Anion Gap BUN Creatinine GFR Calculation Glucose POC Glucose 144 H 154 H Calculated Osmolality Calcium Total Bilirubin AST ALT Alkaline Phosphatase Total Protein Albumin Globulin Urine Color Urine Appearance Urine pH Ur Specific [place] Urine Protein Urine Glucose (UA) Urine Ketones Urine Blood Urine Nitrate Urine Bilirubin Urine Urobilinogen Ur Leukocyte Esterase Cardiac Studies: No Data to Display
[2020-09-18] MEDS: acetaminophen 1,000 MG/100 ML PIGGYBACK 400 MG IV (13:29)
[2020-09-18] MEDS: sodium chloride 0.9% 1,000 ML 30 ML IV (13:30)
--- NOTE | 2020-09-18 15:14 | PM.OP ---
Operative Report Date of procedure: September 18, 2020 Pre-op Diagnosis: Right Subcapital Hip Fracture Post-op diagnosis: same Post-op Findings: Impacted right subcapital hip fracture Procedure Done: Open reduction internal fixation right subcapital hip fracture utilizing Marcellus cannulated screws 3 Implants: Cannulated hip screw x3, 6.5 mm Specimens removed/disposition: None Pathology: none sent Surgeon: Luz Rojo Registered Massage Therapist: [facility] operating room technicians Anesthesia: General (Intubated, ASA 3) Estimated blood loss (mL): 50 IV fluids (mL): 800 Urine output (mL): 500 Complications: None Findings: Impacted right subcapital hip fracture Condition: stable Disposition: PACU (Then to floor for postoperative rehabilitation and pain management) Brief History: Mary Harmon is a 80 year old female state of health when she fell at home. She states she her feet caught up in a purse with a long strap on it. The patient has a history of polio to her right leg. She also has chronic diarrhea as well as type 2 diabetes. She does live alone and manages at home alone. She is seen in the preoperative holding area with her family. Patient fell directly onto her right side and had significant pain. She called for an ambulance, and she was brought to the emergency room. Upon initial presentation to the emergency department, x-rays were suspicious for subcapital hip fracture, and this was confirmed by CT. discussion was undertaken with the patient, and consents were signed. Procedure: Patient is brought to the operating theater. After undergoing adequate general anesthesia with intubation, ASA3, the patient was transferred to the fracture table, positioned on the table and fluoroscopic guidance obtained throughout the surgical procedure. Prior to the commencement of the surgical procedure, a surgical pause was performed. At the time of the surgical pause, we confirmed the site and side of surgery as well as preoperative surgical markings and appropriate and timely administration of IV antibiotics, Zosyn 3.375 g. Availability of equipment was also confirmed. Fluoroscopy was used to confirm the fracture was appropriately reduced in both AP and lateral planes. An incision was then made at approximate the level of the lesser trochanter to allow the Davide gun to be introduced for placement of guide wires into the femoral head. 3 guidewires were placed under fluoroscopic guidance confirming appropriate position in AP and lateral planes. Length of the screws was then measured and 3 screws were placed uneventfully. Appropriate position was confirmed in AP and lateral planes, and it was noted the fracture remained in anatomic position. Attention was then directed to closure. The wound was copiously irrigated with normal saline with antibiotics. Following this it was dried and closed. Tensor fascia joaquin was closed proximally with 0 Vicryl in an interrupted fashion. Subcutaneous tissues were closed with a combination 2-0 Monocryl, and the skin was closed with 3-0 Monocryl. This was then covered with Dermabond, Steri-Strips, and OpSite. The patient was removed from the fracture table and returned to recovery in satisfactory condition. The patient will be discharged to the floor for postoperative rehabilitation and pain management. There were no specimens obtained. Associated Problem List Diagnoses (1) Subcapital fracture of right hip: Qualifiers: Encounter type: initial encounter Fracture type: closed Qualified Code(s): S72.011A - Unspecified intracapsular fracture of right femur, initial encounter for closed fracture
[2020-09-18] MEDS: TRAMadol 50 mg Tablet PO (15:39)
--- NOTE | 2020-09-18 16:57 | ANE.PACU2 ---
Inpatient post-anesthesia follow up: Airway intact: Yes Vital signs: Temperature 98.4 F Pulse Rate [Monito r] 90 Pulse Rate 76 Respiratory Rate 18 Blood Pressure 131/62 Pulse Oximetry 93 Oxygen Delivery Me thod Room Air Oxygen Flow Rate 6 Fraction of Inspir ed Oxygen Hydration adequate: Yes Nausea and vomiting: No Pain level: 2 Mental status: Baseline
[2020-09-18 17:32] LABS: Glucose Point of Care 135 mg/dL (70-110)
[2020-09-18] MEDS: docusate sodium 100 mg Capsule PO (17:46)
[2020-09-18] MEDS: CELEcoxib 200 mg Capsule PO (17:46)
[2020-09-18 20:50] LABS: Glucose Point of Care 128 mg/dL (70-110)
[2020-09-18] MEDS: acetaminophen 500 mg Tablet 1000 MG PO (21:59)
[2020-09-19] VITALS (7 sets, daily range): BP systolic 105–161; BP diastolic 58–78; PULSE 60–75; RESP 16–18; TEMP 36.3–36.8; O2SAT 94–97
[2020-09-19] MEDS: dextrose 5%-sod chloride 0.45% 1,000 ML 30 ML IV (00:02)
[2020-09-19] MEDS: piperacillin-tazobactam 3.375 GM in sodium chloride 0.9% (plus) 50 ML IV ×3 (00:03→17:44)
[2020-09-19] MEDS: metoprolol tartrate 50 mg Tablet 75 MG PO ×2 (05:45→17:43)
[2020-09-19] MEDS: acetaminophen 500 mg Tablet 1000 MG PO ×3 (05:45→20:15)
[2020-09-19 06:54] LABS: Glucose Point of Care 147 mg/dL (70-110)
[2020-09-19] MEDS: multivitamin therapeutic Tablet 1 TAB PO (09:15)
[2020-09-19] MEDS: aspirin 325 mg EC Tablet PO (09:16)
[2020-09-19] MEDS: CELEcoxib 200 mg Capsule PO ×2 (09:16→17:43)
--- NOTE | 2020-09-19 09:36 | PC.NURSE ---
0965 PT UP WITH PT NOTED HOME ANKLE BRACES ON WELL ORTHOPEDIC SHOES FROM HOME - PT STEVEN ACTIVITY WELL - FAMILY AT SIDE DISCUSSING PLAN OF CARE AT DISCHARGE WITH PT
[2020-09-19 10:57] LABS: Glucose Point of Care 247 mg/dL (70-110)
--- NOTE | 2020-09-19 14:20 | PM.PN ---
Subjective Subjective: Interval history: Patient was admitted with AN impacted subcapital fracture of the right hip. This is the leg affected by polio, and she has had some issues working with therapy secondary to this. Overall, she is comfortable and up in a chair. Medications: Reviewed: Yes Vitals/I&O/Wt Last Vital Signs Temp 97.5 F L 09/19/20 11:01 Pulse 73 09/19/20 11:01 Resp 16 09/19/20 11:01 BP 147/70 09/19/20 11:01 Pulse Ox 94 09/19/20 11:01 09/18/20 09/19/20 09/19/20 22:59 06:59 14:59 Intake Total 1989 1572.5 / 3712.5 Output Total 1599 / 2148 600 / 2749 Balance 390 / -9 972.5 / 963.5 Weight last 48 hrs Weight 130 lb Physical Exam Const: COMMON NORMALS: no acute distress, average body habitus, patient oriented x3 and alert GENERAL APPEARANCE: cooperative and comfortable ORIENTATION/CONSCIOUSNESS: Yes awake HENMT: COMMON NORMALS: normocephalic and atraumatic HEAD & SCALP: normocephalic and atraumatic Eye: GENERAL EYE: appearance normal, both eyes and all related structures Chest: COMMONS NORMALS: normal inspection of the chest Resp: COMMON NORMALS: normal respiratory effort EFFORT & INSPECTION: Yes able to speak in complete sentences and Yes symmetric chest movement Extremity: RIGHT LOWER EXTREMITY: Yes hip joint (Dressing is dry and intact. There is minimal to no discomfort.) Right hip: Yes inspection (No ecchymosis.), Yes palpation (Minimal tenderness.), Yes ROM (Not evaluated.) and Yes neurovascular exam (Intact distally with no evidence of DVT.) Neuro: COMMON NORMALS: patient oriented x3 SENSORIUM/ORIENTATION: Yes alert Psych: COMMON NORMALS: mental status grossly normal APPEARANCE: Yes grossly normal ATTITUDE: Yes calm and Yes engaged ATTENTION/CONCENTRATION: Yes attention grossly intact Skin: COMMON NORMALS: no rashes or lesions noted GENERAL SKIN EXAM: no rashes or lesions noted Urinary Catheter Management^: Vargas: Cath Placed During This Visit: yes, but has since been removed by the nurse Reason for Continuing Indwelling Catheter: Decision to DC Catheter Urinary Catheter Date of Insertion: 09/17/20 Urinary Catheter Time of Insertion: 21:26 Date Urinary Catheter Removed: 09/19/20 Time Urinary Catheter Discontinued: 05:45 Data : 09/18/20 05:12 09/18/20 05:12 A&P Assessment and plan (1) Subcapital fracture of right hip: Patient was admitted through the emergency department, and I was consulted with regard to her minimally displaced impacted right subcapital hip fracture. I reviewed imaging studies including x-rays and CT of the hip. The patient does have an impacted subcapital hip fracture, and with minimal to no displacement, she is a candidate for cannulated screws. Patient underwent surgical intervention yesterday. She is doing well following this. She does require physical therapy for increased strength. She also has some limitation in her rehabilitation secondary to this lower extremity being affected with polio. She also has bilateral AFOs secondary to her polio as well. Patient will require the services of inpatient physical therapy and subsequent long-term to maximize her medical improvement. Status: Acute Qualifiers: Encounter type: initial encounter Fracture type: closed Qualified Code(s): S72.011A - Unspecified intracapsular fracture of right femur, initial encounter for closed fracture Attestations Medical Necessity Statement*: Ongoing physical therapy and medical optimization. 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
[2020-09-19 17:21] LABS: Glucose Point of Care 150 mg/dL (70-110)
[2020-09-19 17:38] LABS: Glucose Point of Care 137 mg/dL (70-110)
[2020-09-19 21:14] LABS: Glucose Point of Care 159 mg/dL (70-110)
--- NOTE | 2020-09-19 22:12 | PM.PN ---
Subjective Subjective: Interval history: vinay cute interim events, partcipating with PT Medications: Reviewed: Yes Vitals/I&O/Wt Last Vital Signs Temp 97.9 F 09/19/20 20:00 Pulse 75 09/19/20 20:00 Resp 16 09/19/20 20:00 BP 161/74 09/19/20 20:00 Pulse Ox 97 09/19/20 20:00 09/19/20 09/19/20 09/19/20 06:59 14:59 22:59 Intake Total 1572.5 / 3712.5 50 / 50 410 / 460 Output Total 600 / 2749 0 / 0 Balance 972.5 / 963.5 50 / 50 410 / 460 Physical Exam Narrative: EXAM NARRATIVE: GEN: Awake, alert and oriented, no acute distress CVS: S1S2 N RS: CTA B/L Abd: Soft, nt/nd , bs+ GEOTECHNICAL INTERN: no focal neuro deficits Urinary Catheter Management^: Vargas: Cath Placed During This Visit: yes, but has since been removed by the nurse Reason for Continuing Indwelling Catheter: Decision to DC Catheter Urinary Catheter Date of Insertion: 09/17/20 Urinary Catheter Time of Insertion: 21:26 Date Urinary Catheter Removed: 09/19/20 Time Urinary Catheter Discontinued: 05:45 Data : 09/18/20 05:12 09/18/20 05:12 A&P Assessment and plan (1) Closed hip fracture: Status: Acute Qualifiers: Encounter type: initial encounter Laterality: right Qualified Code(s): S72.001A - Fracture of unspecified part of neck of right femur, initial encounter for closed fracture (2) Diverticulitis: Status: Acute (3) Polio: Status: Acute (4) Type 2 diabetes mellitus without complications: Status: Acute Qualifiers: Diabetes mellitus penitentiary insulin use: without truck terminal manager use Qualified Code(s): E11.9 - Type 2 diabetes mellitus without complications (5) Chronic diarrhea: Status: Acute Additional A&P Information Closed right hip fracture s/p surgical intervention tolerated well pain well controlled Diverticulitis without sepsis She has moderate leukocytosis however no febrile episodes, hemodynamically stable currently on zosyn Full code. 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
[2020-09-20 00:05] VITALS: BP 149/71; PULSE 70; RESP 18; TEMP 36.9; O2SAT 95
[2020-09-20] MEDS: dextrose 5%-sod chloride 0.45% 1,000 ML 30 ML IV (00:40)
[2020-09-20] MEDS: piperacillin-tazobactam 3.375 GM in sodium chloride 0.9% (plus) 50 ML IV ×3 (00:50→16:48)
[2020-09-20 04:39] VITALS: BP 161/77; PULSE 71; RESP 18; TEMP 36.6; O2SAT 95
[2020-09-20] MEDS: acetaminophen 500 mg Tablet 1000 MG PO ×2 (05:06→12:44)
[2020-09-20] MEDS: metoprolol tartrate 50 mg Tablet 75 MG PO ×2 (05:06→16:47)
[2020-09-20 07:08] LABS: Glucose Point of Care 159 mg/dL (70-110)
[2020-09-20 07:35] VITALS: BP 167/84; PULSE 75; RESP 16; TEMP 36.5; O2SAT 94
[2020-09-20] MEDS: multivitamin therapeutic Tablet 1 TAB PO (08:22)
[2020-09-20] MEDS: docusate sodium 100 mg Capsule PO (08:22)
[2020-09-20] MEDS: aspirin 325 mg EC Tablet PO (08:22)
[2020-09-20] MEDS: TRAMadol 50 mg Tablet PO ×2 (08:40→16:49)
[2020-09-20] MEDS: CELEcoxib 200 mg Capsule PO ×2 (08:40→18:26)
--- NOTE | 2020-09-20 09:21 | PM.PN ---
Subjective Subjective: Interval history: Patient continues to work with physical therapy. She is looking forward to going to the skilled facility, [facility], to allow her to become once again independent. Medications: Reviewed: Yes Vitals/I&O/Wt Last Vital Signs Temp 97.7 F 09/20/20 07:35 Pulse 75 09/20/20 07:35 Resp 16 09/20/20 07:35 BP 167/84 09/20/20 07:35 Pulse Ox 94 09/20/20 07:35 09/19/20 09/20/20 09/20/20 22:59 06:59 14:59 Intake Total 870 / 920 758 / 1678 Output Total 200 / 200 450 / 650 Balance 670 / 720 308 / 1028 Physical Exam Const: COMMON NORMALS: no acute distress, average body habitus, patient oriented x3 and alert GENERAL APPEARANCE: cooperative and comfortable ORIENTATION/CONSCIOUSNESS: Yes awake HENMT: COMMON NORMALS: normocephalic and atraumatic HEAD & SCALP: normocephalic and atraumatic Eye: GENERAL EYE: appearance normal, both eyes and all related structures Chest: COMMONS NORMALS: normal inspection of the chest Resp: COMMON NORMALS: normal respiratory effort EFFORT & INSPECTION: Yes able to speak in complete sentences and Yes symmetric chest movement Extremity: RIGHT LOWER EXTREMITY: Yes hip joint (Dressing is dry and intact.) Right hip: Yes inspection (No significant swelling.) and Yes neurovascular exam (Intact distally with no evidence of DVT.) Neuro: COMMON NORMALS: patient oriented x3 SENSORIUM/ORIENTATION: Yes alert Psych: COMMON NORMALS: mental status grossly normal APPEARANCE: Yes grossly normal ATTITUDE: Yes calm and Yes engaged ATTENTION/CONCENTRATION: Yes attention grossly intact Skin: COMMON NORMALS: no rashes or lesions noted GENERAL SKIN EXAM: no rashes or lesions noted Urinary Catheter Management^: Vargas: Cath Placed During This Visit: yes, but has since been removed by the nurse Reason for Continuing Indwelling Catheter: Decision to DC Catheter Urinary Catheter Date of Insertion: 09/17/20 Urinary Catheter Time of Insertion: 21:26 Date Urinary Catheter Removed: 09/19/20 Time Urinary Catheter Discontinued: 05:45 Data : 09/18/20 05:12 09/18/20 05:12 A&P Assessment and plan (1) Subcapital fracture of right hip: Patient was admitted through the emergency department, and I was consulted with regard to her minimally displaced impacted right subcapital hip fracture. I reviewed imaging studies including x-rays and CT of the hip. The patient had an impacted subcapital hip fracture, and with minimal to no displacement. Patient underwent surgical intervention on 09/18/20. She is doing well following this. She requires physical therapy for increased strength, especially due to her limitations from her polio. She also has bilateral AFOs secondary to her polio as well. Patient will require the services of inpatient physical therapy and subsequent custodial to maximize her medical improvement. 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
--- NOTE | 2020-09-20 10:25 | PC.SOCIAL ---
*IMM UPDATE* Gave patient IMM update with daughter at bedside, provided copy of page 2. Verbalized understanding 09/20/20 @ 0918 Initialed, dated, timed and placed in chart.
[2020-09-20 11:15] VITALS: BP 165/73; PULSE 74; RESP 18; TEMP 36.2; O2SAT 95
--- NOTE | 2020-09-20 11:42 | P.DS_ITS ---
Discharge Providers Date of Admission: 09/17/20 20:11 Date of Discharge: September 20, 2020 Attending Provider at Admission: Yazmin Carlson MD Attending Provider at Discharge: Candy Wilkinson MD Primary Care Provider: Sariah Nichole MD Diagnoses at Discharge Discharge Diagnosis (1) Subcapital fracture of right hip: Status: Acute Qualifiers: Encounter type: initial encounter Fracture type: closed Qualified Code(s): S72.011A - Unspecified intracapsular fracture of right femur, initial encounter for closed fracture (2) Diverticulitis: Status: Acute Reason for Visit Reason for Visit: fall, hip pain Hospital Course Hospital Course Mary Harmon is a 80 year old female who has history of polio of right leg, type 2 diabetes, chronic diarrhea presented after sustaining a mechanical fall at home.x-rays were suspicious for subcapital hip fracture, and this was confirmed by CT.Open reduction internal fixation right subcapital hip fracture utilizing Marcellus cannulated screws was perfromed on 09/18/20. Toelrated procedure well. C/o chronic diarrhea at least 3 years and lower abdominal pain at presentation, CT showed diverticulitis, no signs of peritonitis, treated with iv zosyn, transitioned to po cipro/flagyl at discharge, C diff negatuve. recommend colonoscopy as outapatient. 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 Urinary Catheter Management^: Vargas: Cath Placed During This Visit: yes, but has since been removed by the nurse Reason for Continuing Indwelling Catheter: Decision to DC Catheter Urinary Catheter Date of Insertion: 09/17/20 Urinary Catheter Time of Insertion: 21:26 Date Urinary Catheter Removed: 09/19/20 Time Urinary Catheter Discontinued: 05:45 Discharge Data Data Completed and Pending: Completed Studies During Hospitalization Category Date Time Status CT hip RT wo con* [id number] Urgent Cat Scan 09/17/20 19:27 Completed XR chest 1V catie ble [id number] Urgent Exams 09/17/20 19:06 Completed XR hip RT 2-3V wo /w pel* [id number] Rout ine Exams 09/18/20 Completed XR hip RT 2-3V wo /w pel* [id number] Stat Exams 09/17/20 19:06 Completed XR knee RT 3V* 73 [id number] Stat Exams 09/17/20 19:27 Completed Pending at discharge Category Date Time Status Clostridioides Di fficile PCR Routin e Lab 09/20/20 09:03 Received Labs from last 24 hours 09/20/20 09/19/20 09/19/20 06:34 21:03 17:31 POC Glucose 159 H 159 H 137 H 09/19/20 17:03 POC Glucose 150 H Vitals: Last Vital Signs Temp 97.2 F L 09/20/20 11:15 Pulse 74 09/20/20 11:15 Resp 18 09/20/20 11:15 BP 165/73 09/20/20 11:15 Pulse Ox 95 09/20/20 11:15 Discharge Plan Discharge Patient Disposition: Xfer SNF Condition: Stable Prescriptions: New aspirin 325 mg Tablet,Delayed Release (Dr/Ec) 325 mg PO DAILY 30 Days Qty: 30 RF: 0 Cipro 500 mg tablet 500 mg PO Q12H 3 Days Qty: 6 RF: 0 Flagyl 500 mg tablet 500 mg PO Q8H 3 Days Qty: 9 RF: 0 Continued (DME) Straps for leg splints See Rx Instructions .Route .MEDSUPPLY Qty: 1 RF: 0 ascorbic acid (vitamin C) 500 mg capsule 1,000 mg PO DAILY@0600 RF: 0 cholecalciferol (vitamin D3) 1,000 unit capsule 1,000 unit PO DAILY@0600 RF: 0 biotin 1,000 mcg tablet,chewable 1,000 mcg PO DAILY@1700 RF: 0 (DME) Right knee brace hinged See Rx Instructions .Route .MEDSUPPLY Qty: 1 RF: 0 (DME) Right leg brace straps See Rx Instructions .Route .MEDSUPPLY Qty: 1 RF: 0 (DME) True Metrix Glucose Test Strip Strip See Rx Instructions .ROUTE .MEDSUPPLY Qty: 50 RF: 0 (DME) True Metrix Glucose Test Strip Strip See Rx Instructions .ROUTE .MEDSUPPLY Qty: 50 RF: 2 (DME) lancets [2-In-1 Lancet Device] 30 gauge misc See Rx Instructions .ROUTE .MEDSUPPLY Qty: 100 RF: 2 nitroglycerin [Nitrostat] 0.4 mg tablet, sublingual 0.4 mg SUBLINGUAL Q5M PRN (Reason: chest pain) Qty: 25 RF: 2 (DME) Diabetic shoes with build up on right for heighth See Rx Instructions .Route .MEDSUPPLY Qty: 1 RF: 0 Fish Oil Concentrate 1,000 mg capsule 1,000 mg PO BID@0600,1700 RF: 0 lisinopril-hydrochlorothiazide 20-12.5 mg tablet 1 tab PO BID@0600,1700 RF: 0 isosorbide mononitrate 30 mg tablet extended release 24 hr 60 mg PO DAILY@0600 RF: 0 famotidine 20 mg tablet 20 mg PO BID@0600,1700 RF: 0 amlodipine 10 mg tablet 10 mg PO DAILY@0600 RF: 0 cyanocobalamin (vitamin B-12) 1,000 mcg/mL solution 1,000 mcg IM Q30D RF: 0 ferrous sulfate 325 mg (65 mg iron) tablet 325 mg PO BID@0600,1700 RF: 0 metoprolol tartrate 50 mg tablet 75 mg PO BID@0600,1700 RF: 0 pyridoxine (vitamin B6) 50 mg tablet 50 mg PO DAILY@0600,1700 RF: 0 buspirone 15 mg tablet 15 mg PO BID@0600,1700 RF: 0 Janumet XR 50-1,000 mg tablet, ER multiphase 24 hr 1 tab PO BID@0600,1700 RF: 0 Calcium 600 600 mg calcium (1,500 mg) Tablet 600 mg PO BID@0600,1700 RF: 0 Discontinued aspirin 81 mg tablet,delayed release (DR/EC) 81 mg PO DAILY@0600 RF: 0 Discharge Orders: Discharge Order (Routine); Ordered 09/20/20 Ordered By: Candy Wilkinson Referrals: [facility] [Outside] Luz Rojo MD [Physician] - 6 Weeks (Please schedule appointment in 3 to 4 weeks with me at the office.PLEASE CALL FOR APPOINTMENT [phone]) Sariah Nichole MD [Primary Care Provider] - (PLEASE CALL FOR APPOINTMENT ) Marcial Dillard MD [Physician] - 1 month (chronic diarrhea x 3 years. divertoculitis ) Discharge Activity: Increase activity as tolerated, Use walker/crutches as instructed and As per PT/OT instructions Patient Instructions: Ciprofloxacin (By mouth), Aspirin (By mouth), Metronidazole (By mouth), Diverticulitis (DC), Opioid Safety Activity Restrictions/Additional Instructions: Weightbearing as tolerated right lower extremity. Ice to right hip as needed. Strengthening and ambulation with physical therapy. Discharge Attestations Time Spent in Discharge Care*: greater than 30 min Quality Metrics Clinical Quality Measures During this hospital stay, did patient experience: None Coding Level of Care Code Acute Chg FW DC note Diagnoses Subcapital fracture of right hip S72.011A Encounter type: initial encounter Fracture type: closed Diverticulitis K57.92
[2020-09-20 11:44] LABS: Glucose Point of Care 197 mg/dL (70-110)
[2020-09-20 16:08] VITALS: BP 157/73; PULSE 74; RESP 16; TEMP 36.2; O2SAT 97
[2020-09-20 16:58] LABS: Glucose Point of Care 203 mg/dL (70-110)
[2020-09-20 17:36] LABS: SARS Covid-2 Antigen Negative (Negative)
== END 2020-09-20 18:29 | disposition skilled nursing facility (03) | DRG 481 ==
LOC: ER 20:10 → MEDSURG 20:41
PROVIDERS: Specialist; Admitting Provider Internal Medicine; Emergency Provider Emergency Medicine; PCP Family Medicine; Visit Provider Student in an Organized Health Care Education/Training Program
PROC: 0QS604Z Reposition Right Upper Femur with Internal Fixation Device, Open Approach (ICD-10-PCS; CPT 27236; principal; 2020-09-18 18:45)
DX: S72.011A Unspecified intracapsular fracture of right femur, initial encounter for closed fracture (principal); K57.92 Diverticulitis of intestine, part unspecified, without perforation or abscess without bleeding; W01.0XXA Fall on same level from slipping, tripping and stumbling without subsequent striking against object, initial encounter; Y93.9 Activity, unspecified; Y92.009 Unspecified place in unspecified non-institutional (private) residence as the place of occurrence of the external cause; Z86.12 Personal history of poliomyelitis; E11.9 Type 2 diabetes mellitus without complications; K52.9 Noninfective gastroenteritis and colitis, unspecified; M21.372 Foot drop, left foot; M21.371 Foot drop, right foot; M21.70 Unequal limb length (acquired), unspecified site; F41.9 Anxiety disorder, unspecified; M17.11 Unilateral primary osteoarthritis, right knee; E78.5 Hyperlipidemia, unspecified; I10 Essential (primary) hypertension; K21.9 Gastro-esophageal reflux disease without esophagitis; M25.372 Other instability, left ankle; M81.0 Age-related osteoporosis without current pathological fracture; I07.1 Rheumatic tricuspid insufficiency; E53.8 Deficiency of other specified B group vitamins; Z79.84 Long term (current) use of oral hypoglycemic drugs
CPT/HCPCS: 36415; 36416; 51702; 71045; 73502; 73562; 73700; 76000; 80048; 80053; 81003; 82962; 85025; 85610; 87426; 87493; 93005; 96365; 96367; 96372; 96375; 97110; 97162; 97166; 97530; 97535; 99285; C1713; J0744; J1815; J2270; J2405; J2543; J2704; J3490; J7030; J7799; S0030

== ENCOUNTER → 2020-10-18 09:23 | Outpatient (BNVA) | payer OTHER, MEDICARE, MEDICAID, SELFPAY | PROVIDERS: PCP Family Medicine; Visit Provider Specialist | DX: S72.011A Unspecified intracapsular fracture of right femur, initial encounter for closed fracture (principal); X58.XXXA Exposure to other specified factors, initial encounter | CPT/HCPCS: 73502 ==

== ENCOUNTER 2020-10-30 12:06 | Observation (INO) | payer MEDICARE, MEDICAID, SELFPAY ==
[2020-10-26 12:12] VITALS: BMI 23.7
--- NOTE | 2020-10-26 12:56 | ECG_ITS ---
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
[2020-10-26 13:17] LABS: Basophils % 0.5 %; Eosinophils # 0.1 10^3/uL (0.0-0.8); Eosinophils % 1.5 %; Hemoglobin 11.4 g/dL (11.5-15.3); Lymphocytes # 1.4 10^3/uL (0.8-4.8); Lymphocytes % 18.5 %; Mean Corpuscular HGB Conc 33.5 g/dL (30.0-36.0); Mean Corpuscular Hemoglobin 28.7 pg (28.0-34.0); Mean Corpuscular Volume 85.6 fL (81-99); Mean Platelet Volume 9.9 fL (7.4-10.4); Monocytes # 0.7 10^3/uL (0.2-0.9); Monocytes % 9.4 %; Neutrophils # 5.09 10^3/uL (1.8-7.7); Neutrophils % 69.7 %; Nucleated Red Blood Cells % 0 %; Platelet Count 321 10^3/cmm (130-400); Red Blood Count 3.97 10^6/uL (4.1-5.3); Red Cell Distribution Width 12.9 % (12.1-15.1); White Blood Count 7.3 10^3/uL (4.0-10.0)
--- NOTE | 2020-10-26 13:25 | P.ANESASSM_ITS ---
Pre-Anesthetic Assessment Pre-Anesthetic Assessment: Height/Weight: Height 1.6 m Weight 60.781 kg Preop Diagnosis: Right subcapital hip - failed hardware Proposed Procedure: Operation Date: 10/30/20 10:45 Proposed Procedures p RIGHT HIP BIPOLAR ARTHROPLASTY WITH HARDWARE REMOVAL 04309 27132 z72.011A Z48.89(Right) - Luz Rojo MD s Hardware Removal Hip Screw(Right) - Luz Rojo MD Familial anesthetic complications: none Social: Social History: No alcohol and No tobacco Exam: Pre-Anes Outpt Exam: alert, oriented x 3, clear to auscultation bilaterally and regular rate & rhythm Airway: Cervical ROM: WNL MP: 3 Dentition: Full Pulmonary: Pulmonary: None reported CV/HEM: CV/HEM: CAD and HTN GI: GI: GERD Metabolic: Metabolic: DM and Hyperlipidemia Neuropsych: Comments: Hx [id number] Anesthetic Plan: ASA status: 3 Anesthesia: Regional (specify below) (spi nal) Risk of > 500 ml blood loss (7ml/kg in children): No PFSH Anesthesia PFSH: Medical History Acquired deformity of both feet foot drop and pronation with callous Acquired short leg syndrome on right Anxiety Breast nodule right Chronic diarrhea Chronic instability of knee, right knee Degenerative arthritis of knee right Dyslipidemia Elevated serum alkaline phosphatase level Encounter for counseling for care management of patient with chronic conditions and complex health needs using nurse-based model Essential (primary) hypertension Gait disorder Gastro-esophageal reflux disease without esophagitis History of post-polio syndrome Hyponatremia Left ankle instability Osteoporosis Tricuspid valve regurgitation, nonrheumatic Type 2 diabetes mellitus without complications Vitamin B12 deficiency Surgical History H/O: hysterectomy (~1991) Hx of cholecystectomy (~2001) Hx of colonoscopy (~2012) Family History Father Cancer lung Mother Diabetes Stroke Hypertension Social History Smoking and tobacco status: never smoked Alcohol intake: never Adopted: No Lives independently: Yes Household members: none Housing: House Marital status: / Number of children: 3 Highest education level completed: High School Graduate [employer] service: No Current occupational status: retired Pets and animals: Yes History of recent travel: No Current gender identity: Female Data Anesthesia CBC & Chem 7: 10/26/20 12:40 Cardiac Studies: No Data to Display
[2020-10-26 13:35] LABS: Add Urine Microscopic? YES; Bilirubin Urine 1+ (Negative); Blood Urine Neg (Negative); Glucose Urine UA Norm (Normal); Ketones Urine 1+ (Negative); Leukocyte Esterase Urine Negative (Negative); Nitrate Urine Negative (Negative); Protein Urine Trace (Negative); Specific Gravity, Urine 1.025 (1.005-1.030); Urine Appearance SL Hazy (CLEAR); Urine Color Yellow (Yellow); Urobilinogen Urine 1 mg/dL (Negative); pH Urine 5 (5-7)
[2020-10-26 13:36] LABS: Add Urine Culture? No; Bacteria Urine 1+ /hpf; Mucus Urine 3+ /hpf; Squamous Epithelial Cell Urine 25-40 /hpf (0-5)
[2020-10-26 13:37] LABS: Albumin Level 4.3 g/dL (3.5-5.2); Alkaline Phosphatase 114 IU/L (35-105); Anion Gap 17.1 (5-19); Aspartate Amino Transferase 25 U/L (0-32); Blood Urea Nitrogen 13 mg/dL (8-23); Carbon Dioxide 26 mmol/L (22-29); Chloride 92 mmol/L (98-107); Globulin 3.2 g/dL (1.3-4.6); Glucose 102 mg/dL (65-115); Osmolality Calculated 272 mOsm/kg (285-295); Potassium 4.1 mmol/L (3.5-5.1); Sodium 131 mmol/L (136-145); Total Bilirubin 0.5 mg/dL (0.15-1.2); Total Protein 7.5 g/dL (6.6-8.7)
[2020-10-26 13:47] LABS: Alanine Aminotransferase 22 U/L (0-33)
[2020-10-30] VITALS (20 sets, daily range): BP systolic 105–141; BP diastolic 54–67; PULSE 62–76; RESP 12–18; TEMP 36.2–36.8; O2SAT 94–100
--- NOTE | 2020-10-30 07:10 | W.PM.OPSUD ---
Surgery/Procedure H&P Update DATE OF PROCEDURE: October 30, 2020 DATE H&P PERFORMED: 10/18/20 H&P UPDATE INFORMATION: I have reviewed H&P completed within last 30 days, I have examined patient prior to procedure, No changes to prior documentation and H&P is in [facility] EMR on date indicated PREOP DIAGNOSIS: Right Subcapital Hip Fracture PRIMARY INDICATION FOR PROCEDURE: Avascular Changes PLANNED PROCEDURE: Operation Date: 10/30/20 08:00 Proposed Procedures p RIGHT HIP BIPOLAR ARTHROPLASTY WITH HARDWARE REMOVAL 57061 53553 z72.011A Z48.89(Right) - Luz Rojo MD s Hardware Removal Hip Screw(Right) - Luz Rojo MD Related Problem List Diagnoses (1) Orthopedic hardware present: (2) Subcapital fracture of right hip: Qualifiers: Encounter type: subsequent encounter Fracture type: closed Fracture healing: with delayed healing Qualified Code(s): S72.011G - Unspecified intracapsular fracture of right femur, subsequent encounter for closed fracture with delayed healing
[2020-10-30 07:29] LABS: Glucose Point of Care 127 mg/dL (70-110)
[2020-10-30] MEDS: acetaminophen 1,000 MG/100 ML PIGGYBACK 400 MG IV ×2 (07:33→15:50)
[2020-10-30] MEDS: CELEcoxib 200 mg Capsule 400 MG PO (07:33)
[2020-10-30] MEDS: sodium chloride 0.9% 1,000 ML 30 ML IV (07:34)
--- NOTE | 2020-10-30 07:34 | P.ANESUD_ITS ---
Pre-Anesthetic Update Pre-Anesthetic Assessment: Date of Surgery/Procedure: 10/30/20 Preop Natty gnosis: Right Subcapital Hip Fracture Proposed Procedure: Operation Date: 10/30/20 08:00 Proposed Procedures p RIGHT HIP BIPOLAR ARTHROPLASTY WITH HARDWARE REMOVAL 38106 07441 z72.011A Z48.89(Right) - Luz Rojo MD s Hardware Removal Hip Screw(Right) - Luz Rojo MD Any changes to Pre-Anesthetic Assessment?: No Last Intake: Intake Last Liquid Date 10/29/20 Last Liquid Time 18:00 Last Solid Date 10/29/20 Last Solid Time 18:00 Labs Last 48hrs: Laboratory Results - last 48 hr 10/30/20 07:25 POC Glucose 127 H Vitals: Oxygen Delivery Me thod 10/30/20 06:54 Exam: Pre-Anes Outpt Exam: alert, oriented x 3, clear to auscultation bilaterally and regular rate & rhythm Other Pertinent Information: Other Pertinent Information: SAB Cardiac Studies: No Data to Display
[2020-10-30] MEDS: ceFAZolin 1,000 mg SDV 1000 MG IRRIGATION (09:46)
[2020-10-30] MEDS: vancomycin 1,000 MG SDV 1000 MG XX (09:46)
--- NOTE | 2020-10-30 09:53 | SUR.OPER ---
Daughter notified of surgical start and progress.
--- NOTE | 2020-10-30 11:22 | PM.OP ---
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 Post-op diagnosis: same Post-op Findings: Significant collapse of the femoral head Procedure Done: Right bipolar hip arthroplasty with removal of cannulated screws Implants: The [place] bipolar total hip system with a size 3 Accolade II 127 degree neck angle hip stem, 45 universal head bipolar component with a 28 mm outer diameter +0 mm femoral head Specimens removed/disposition: Femoral head sent to pathology, cultures (aerobic and anaerobic) Pathology: other (Femoral head as noted above for permanent section) Surgeon: Luz Rojo Carpenter Helper: [facility] operating room technicians Anesthesia: General (Intubated, ASA 3, following failed attempt at spinal anesthesia) Estimated blood loss (mL): 100 IV fluids (mL): 1,700 Urine output (mL): 150 Complications: None Findings: Femoral head collapse with nonunion at fracture site. Postoperatively, the hip was stable at 90 degrees of flexion with 80 degrees of internal rotation and 30 degrees of adduction. Condition: stable Disposition: PACU (Then to floor for postoperative rehabilitation and pain management) Brief History: This 80-year-old woman suffered a right subcapital hip fracture for which she underwent cannulated screw fixation. The initial fracture was difficult to visualize on plain film and was primarily visualized with advanced imaging studies. Patient went to [facility] following her hospitalization. When she was seen earlier this month, it appeared that the screws have backed out and upon evaluation, I was concerned that the femoral head had become avascular as there was no sign of stability to the fracture in spite of hardware being in appropriate position. Discussion was undertaken with the patient and her family we elected to proceed with removal of hardware and conversion to bipolar hip arthroplasty. Procedure: The patient was brought to the operating theater, and after undergoing adequate general anesthesia per endotracheal tube, ASA 3, the patient was transferred to the operating room table. Spinal anesthetic was attempted, but was not able to be placed per anesthesia. The patient was placed in the full lateral position and held in place with the pegboard. Patient's right lower extremity was draped free and was subsequently prepped and further draped free. A surgical pause was performed prior to commencement of the surgical procedure. During the surgical pause, we confirmed the site and side of surgery as well as availability of equipment. Additionally, we confirmed preoperative surgical markings. X-rays are also reviewed during this time. Following the surgical pause, an incision was made centering over the greater trochanter continuing proximally and distally as necessary to allow access to the hip joint as well as to the previously placed hardware. Dissection continued through skin and soft tissue using scalpel. Hemostasis was obtained using electrocautery. Initially, attention was directed to the hardware removal. The hardware was palpable, and the tensor fascia joaquin was opened over this area. We were able to dissect down onto the 3 screws. These were removed uneventfully. The screw tracts were cultured, and attention was then redirected to the hip joint for placement of the bipolar. Tensor fascia joaquin was identified and incised longitudinally. Sciatic nerve was identified and protected throughout the surgical procedure. A Charnley U retractor was placed with care being taken to protect the sciatic nerve during placement. The hip was internally rotated. Piriformis muscle was then identified, tagged, and subsequently incised from the posterior aspect of the hip joint. The remaining short external rotators were also incised. These were then elevated off the capsule, and the capsule was entered in a T-type fashion. Each side of the capsule was then tagged. The fracture site was evaluated, and there was no evidence of union. Therefore, a corkscrew was used to remove the femoral head. Following removal of the femoral head, we isolated the femoral neck and appropriate osteotomy of the neck was accomplished for placement of the prosthesis. The femoral head was subsequently measured. The appropriate size trial was chosen. This was a size 45 mm which fit nicely. Therefore size 45 mm was the chosen size for final implantation. Femoral human resources designate was then placed and attention was directed to the proximal femur. Initially, the proximal femur was addressed with a box chisel, and this was followed by a canal finder and subsequently broaches. The hip was broached to a size 3. Size 3 broach 127 degree neck angle was noted to fit nicely and have good fit and fill. Therefore, this was to be the chosen component. Trial reduction was accomplished with a 45 mm universal bipolar cup with a 28 mm inner diameter and a 28 mm outer diameter with a +0 mm offset femoral head. With this, the above-noted stabilities were accomplished. This was felt to be appropriate and therefore trial components were removed and the hip was irrigated. Acetabulum was evaluated for any loose bodies or other soft tissues requiring resection. We then prepared for implantation. The size Accolade 127 degree neck angle II size 3 femoral stem was impacted into position. This was placed without difficulty. Onto this was placed the construct of the 45 mm outer diameter bipolar cup with a 28 mm inner diameter, and the 28 mm diameter +0 mm offset femoral head. This was placed onto the trunnion of the femoral component. It was impacted into position and pulled upon to assure that there was no dissociation. Once again the hip was irrigated and suctioned dry and was reduced. We then irrigated the hip further with 20 mL of Betadine mixed into 500 mL of normal saline. This was allowed to remain in the wound for approximately 3 minutes. It was then suctioned dry and irrigated with normal saline. This was suctioned dry again and closure was accomplished with 0 Vicryl in the capsular tissues followed by reattachment of the piriformis with 0 Vicryl. Additionally, the tensor was closed with 0 Vicryl in an interrupted fashion. Subcutaneous tissues were closed with 2-0 Monocryl. Skin was closed with 3-0 Monocryl. This was followed by Dermabond and Prineo. A sterile dressing was placed consisting of OpSite. The patient was returned the Recovery Room in satisfactory condition. There were no complications. The patient will be discharged to the floor for postoperative rehabilitation and pain management. Associated Problem List Diagnoses (1) Subcapital fracture of right hip: Qualifiers: Encounter type: subsequent encounter Fracture healing: with delayed healing Fracture type: closed Qualified Code(s): S72.011G - Unspecified intracapsular fracture of right femur, subsequent encounter for closed fracture with delayed healing (2) Orthopedic hardware present:
--- NOTE | 2020-10-30 11:27 | XRR_ITS ---
PROCEDURE INFORMATION: Exam: XR Pelvis Exam date and time: 10/30/2020 11:27 AM Age: 80 years old Clinical indication: Condition or disease; Joint replacement status; Bilateral; Prior surgery; Surgery date: Post-operative (0-2 days); Surgery type: History--s/p post bipolar hip arthroplasty; Additional info: Status post bipolar hip arthroplasty, low ap pelvis TECHNIQUE: Imaging protocol: XR pelvis. Views: 1 or 2 view. COMPARISON: CR XR hip RT 2-3V wo/w pel* [id number] 10/18/2020 9:29 AM FINDINGS: Bones/joints: The patient has undergone recent insertion of a total right hip prosthesis. Some gas is present in the soft tissues from the recent surgery. No fractures are seen. Position appears satisfactory. Soft tissues: See Bones/joints finding. XR/XR pelvis 1-2V* [id number] IMPRESSION: Satisfactory appearance of the total right hip prosthesis.
[2020-10-30] MEDS: fentaNYL 50 mcg/mL INJ 2mL IVP (11:30)
--- NOTE | 2020-10-30 11:33 | SUR.PHASEI ---
1113 pt to pacu from or. rr even and unlabored. dressing to right hip, cdi with abduction pillow in place. jeffries cath in place, secured to left leg.
--- NOTE | 2020-10-30 12:26 | SUR.PHASEI ---
1205 PATIENT TO MED SURG. NO DISTRESS. DROWSY. DRESSING CDI, TO RIGHT HIP WITH FIRST ICE IN PLACE. ABDUCTION PILLOW IN PLACE.
[2020-10-30] MEDS: chlorhexidine gluconate 0.12% Btl 473 mL 30 ML MUCOUS MEM ×3 (14:09→21:42)
--- NOTE | 2020-10-30 15:01 | ANE.PACU2 ---
Inpatient post-anesthesia follow up: Airway intact: Yes Vital signs: Temperature 98.2 F Pulse Rate 69 Respiratory Rate 13 Blood Pressure 114/57 Pulse Oximetry 94 Oxygen Delivery Me thod Nasal Cannula Oxygen Flow Rate 2 Fraction of Inspir ed Oxygen Hydration adequate: Yes Nausea and vomiting: No Pain level: 3 Mental status: Baseline
[2020-10-30] MEDS: BuSPIRONE 10 mg Tablet 15 MG PO (16:29)
[2020-10-30] MEDS: omega-3 fatty acids 1,000 mg Capsule 1000 MG PO (16:46)
[2020-10-30] MEDS: sennosides-docusate Tablet 2 TAB PO (16:46)
[2020-10-30] MEDS: metoprolol tartrate 50 mg Tablet 75 MG PO (16:46)
[2020-10-30] MEDS: pyridoxine 50 mg Tablet PO (16:47)
[2020-10-30] MEDS: iron polysaccharide complex 150 mg Capsule PO (16:47)
[2020-10-30] MEDS: TRAMadol 50 mg Tablet PO ×2 (16:47→21:51)
[2020-10-30] MEDS: famotidine 20 mg Tablet PO (16:47)
[2020-10-30] MEDS: hydroCHLOROthiazide 25 mg Tablet 12.5 MG PO (16:47)
[2020-10-30] MEDS: mupirocin oint 22 gm 1 APPLIC NASAL (16:47)
[2020-10-30] MEDS: calcium carbonate 500 mg Chew Tablet 1000 MG PO (16:47)
[2020-10-30] MEDS: lisinopril 20 mg Tablet PO (16:55)
[2020-10-30 17:15] LABS: Glucose Point of Care 180 mg/dL (70-110)
[2020-10-30 22:49] LABS: Glucose Point of Care 197 mg/dL (70-110)
[2020-10-31] MEDS: acetaminophen 1,000 MG/100 ML PIGGYBACK 400 MG IV ×2 (00:25→06:25)
[2020-10-31 03:21] LABS: Basophils % 0.1 %; Eosinophils % 0.1 %; Hematocrit 25.7 % (37.0-47.0); Hemoglobin 8.5 g/dL (11.5-15.3); Lymphocytes # 1.1 10^3/uL (0.8-4.8); Lymphocytes % 11.9 %; Mean Corpuscular HGB Conc 33.1 g/dL (30.0-36.0); Mean Corpuscular Hemoglobin 28.5 pg (28.0-34.0); Mean Corpuscular Volume 86.2 fL (81-99); Mean Platelet Volume 10.1 fL (7.4-10.4); Monocytes # 0.9 10^3/uL (0.2-0.9); Monocytes % 9.7 %; Neutrophils # 6.96 10^3/uL (1.8-7.7); Nucleated Red Blood Cells % 0 %; Platelet Count 243 10^3/cmm (130-400); Red Blood Count 2.98 10^6/uL (4.1-5.3); Red Cell Distribution Width 13.1 % (12.1-15.1); White Blood Count 8.9 10^3/uL (4.0-10.0)
[2020-10-31 03:49] LABS: Anion Gap 14.7 (5-19); Blood Urea Nitrogen 10 mg/dL (8-23); Calcium 8.5 mg/dL (8.5-10.5); Carbon Dioxide 24 mmol/L (22-29); Chloride 94 mmol/L (98-107); Glucose 121 mg/dL (65-115); Osmolality Calculated 268 mOsm/kg (285-295); Potassium 3.7 mmol/L (3.5-5.1); Sodium 129 mmol/L (136-145)
[2020-10-31 06:01] VITALS: BP 127/61; PULSE 77; RESP 16; TEMP 36.7; O2SAT 96
[2020-10-31] MEDS: ascorbic acid 500 mg Tablet 1000 MG PO (06:23)
[2020-10-31] MEDS: metoprolol tartrate 50 mg Tablet 75 MG PO (06:23)
[2020-10-31] MEDS: hydroCHLOROthiazide 25 mg Tablet 12.5 MG PO (06:23)
[2020-10-31] MEDS: omega-3 fatty acids 1,000 mg Capsule 1000 MG PO (06:24)
[2020-10-31] MEDS: isosorbide mononitrate ER 60 mg Tablet PO (06:24)
[2020-10-31] MEDS: amlodipine 10 mg Tablet PO (06:24)
[2020-10-31] MEDS: BuSPIRONE 10 mg Tablet 15 MG PO (06:24)
[2020-10-31] MEDS: pyridoxine 50 mg Tablet PO (06:24)
[2020-10-31] MEDS: famotidine 20 mg Tablet PO (06:25)
[2020-10-31] MEDS: lisinopril 20 mg Tablet PO (06:25)
[2020-10-31 06:29] LABS: Glucose Point of Care 152 mg/dL (70-110)
--- NOTE | 2020-10-31 07:15 | PC.NURSE ---
Vargas removed this am. Patient sitting up in chair. Tolerated well with no pain upon standing and ambulating. Patient did not require oxygen through the night.
[2020-10-31] MEDS: iron polysaccharide complex 150 mg Capsule PO (08:44)
[2020-10-31] MEDS: sennosides-docusate Tablet 2 TAB PO (08:44)
[2020-10-31] MEDS: calcium carbonate 500 mg Chew Tablet 1000 MG PO (08:44)
[2020-10-31] MEDS: multivitamin therapeutic Tablet 1 TAB PO (08:44)
[2020-10-31] MEDS: aspirin 325 mg EC Tablet PO (08:44)
[2020-10-31] MEDS: CELEcoxib 200 mg Capsule PO (08:44)
[2020-10-31] MEDS: cholecalciferol (vitamin D3) 1,000 unit Tablet 1000 UNIT PO (08:44)
--- NOTE | 2020-10-31 10:05 | PC.CHAP ---
Pastoral Care Encounter/Spiritual Assessment Type of Contact [] Declined carbon brushes assembler visit [] Patient/Family/Request visit [] Outpatient visit [] Follow-up visit [] Physician referral [] Code/Alert x] Routine visit [] Staff referral [] Actively dying [] Patient sleeping [] Family support [] [] Out of room [] Palliative care [] [] Receiving care in room [] Pre-surgical visit [] Trauma [] Long length of stay [] ICU visit [] Other: Relational/Emotional Strength [x] Patient feels connected with others/family/visitors/staff [] Distress [] Loneliness/isolation [] Abandonment Spirituality of Patient [x] Person of Adriana [x] Attends Congregational of their Adriana [] Believes in Prayer [] Reads Bible or Samaritan materials [] There are Spiritual issues to be addressed [employer] Interventions [x] Prayer [x] Active listening [x] Non-anxious presence [] Spiritual/emotional support [] Crisis/trauma care [] Spiritual counseling [] Bereavement support [] Provided bereavement packet [] Provided Bible/devotional materials [] Provided toy/stuffed animal, coloring book to patient or family member [] Provided Communion [] Anointing/Enterprise [] Salvation [x] Completed spiritual assessment [] Other: Impact on Illness or Injury [] Angry [] Fearful [] Anxious [] Often cries [] Exhaustion [] Unable to work [] Unable to attend mosque [] Unable to walk/stand [] Unable to read [] Unable to drive [] Unable to eat/drink [] Unable to sleep [] Unable to be with family [] Patient intubated [] Other: Summary Time spent with patient 10 min
[2020-10-31] MEDS: chlorhexidine gluconate 0.12% Btl 473 mL 30 ML MUCOUS MEM ×2 (10:19→13:37)
[2020-10-31] MEDS: cyanocobalamin 1,000 mcg/mL SDV 1000 MCG IM (10:19)
[2020-10-31] MEDS: mupirocin oint 22 gm 1 APPLIC NASAL (10:20)
--- NOTE | 2020-10-31 11:23 | P.DS_ITS ---
Discharge Providers Date of Admission: 10/30/20 12:06 Date of Discharge: October 31, 2020 Attending Provider at Admission: Luz Rojo MD Attending Provider at Discharge: Luz Rojo MD Primary Care Provider: Sariah Nichole MD Diagnoses at Discharge Discharge Diagnosis (1) Avascular necrosis of right femoral head: Status: Acute (2) Status post hip hemiarthroplasty: Status: Acute Permanent problem details: [place] bipolar total hip system with a size 3 Accolade II 127 degree neck angle hip stem, 45 universal head bipolar component with a 28 mm outer diameter +0 mm femoral head (3) Subcapital fracture of right hip: Status: Acute Qualifiers: Encounter type: subsequent encounter Fracture healing: with delayed healing Fracture type: closed Qualified Code(s): S72.011G - Unspecified intracapsular fracture of right femur, subsequent encounter for closed fracture with delayed healing (4) Orthopedic hardware present: Status: Acute Reason for Visit Reason for Visit: RIGHT HIP BIPOLAR ARTHROPLASTY WITH HARDWARE REMOV Hospital Course Hospital Course This 80-year-old woman who had a subcapital hip fracture, nondisplaced, treated with cannulated screws approximately 6 weeks ago presented with complaints of severe pain in the hip. On x-ray imaging, she was found to have screw migration, and it appeared that the head was avascular. There is no evidence of union. There was significant collapse. After review of the x-rays with the patient and her family, we elected to proceed with bipolar hip arthroplasty to this right hip. This was accomplished yesterday and the patient was admitted to the floor postoperatively. Since the time of her initial surgery, she has been a resident at [facility] skilled facility. She was brought to the hospital for the procedure and is to return to group home at [facility]. She will be weightbearing as tolerated with posterior hip precautions. Postoperatively, she did have slightly high blood sugars, however, she was stable and asymptomatic. She is to return today to [facility] for her normal routine and continued group home. She will be following posterior hip precautions. Physical Exam Const: COMMON NORMALS: no acute distress, average body habitus, patient oriented x3 and alert GENERAL APPEARANCE: cooperative and comfortable ORIENTATION/CONSCIOUSNESS: Yes awake HENMT: COMMON NORMALS: normocephalic and atraumatic HEAD & SCALP: normocephalic and atraumatic Eye: GENERAL EYE: appearance normal, both eyes and all related structures Chest: COMMONS NORMALS: normal inspection of the chest Resp: COMMON NORMALS: normal respiratory effort EFFORT & INSPECTION: Yes able to speak in complete sentences and Yes symmetric chest movement Extremity: RIGHT LOWER EXTREMITY: Yes hip joint (Thigh is soft and nontender. 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.) and Yes other (The patient notes that her hip feels much better when she is walking on it ) Neuro: COMMON NORMALS: patient oriented x3 SENSORIUM/ORIENTATION: Yes alert Psych: COMMON NORMALS: mental status grossly normal APPEARANCE: Yes grossly normal ATTITUDE: Yes calm and Yes engaged ATTENTION/CONCENTRATION: Yes attention grossly intact Skin: COMMON NORMALS: no rashes or lesions noted GENERAL SKIN EXAM: no rashes or lesions noted Urinary Catheter Management^: Vargas: Cath Placed During This Visit: yes, but has since been removed by the nurse Reason for Continuing Indwelling Catheter: Decision to DC Catheter Urinary Catheter Date of Insertion: 10/30/20 Urinary Catheter Time of Insertion: 09:00 Date Urinary Catheter Removed: 10/31/20 Time Urinary Catheter Discontinued: 06:03 Discharge Data Data Completed and Pending: Completed Studies During Hospitalization Category Date Time Status XR pelvis 1-2V* 7 [id number] Routine Exams 10/30/20 11:27 Completed Pending at discharge Category Date Time Status Anaerobic Culture Routine Lab 10/30/20 09:40 Received Wound Culture and Gram Stain Routin e Lab 10/30/20 09:40 Results Pathology: Surgic al [PTH] Routine Pth 10/30/20 10:50 Received Labs from last 24 hours 10/31/20 10/31/20 10/31/20 06:11 02:38 02:38 WBC 8.9 RBC 2.98 L Hgb 8.5 L Hct 25.7 L MCV 86.2 MCH 28.5 MCHC 33.1 RDW 13.1 Plt Count 243 MPV 10.1 Neut % (Auto) 78.0 Lymph % (Auto) 11.9 Otero % (Auto) 9.7 Eos % (Auto) 0.1 Baso % (Auto) 0.1 Neut # (Auto) 6.96 Lymph # (Auto) 1.1 Otero # (Auto) 0.9 Eos # (Auto) 0.0 Baso # (Auto) 0.0 Nucleated RBC % (a uto) 0 Nucleated RBCs # 0.0 Sodium 129 L Potassium 3.7 Chloride 94 L Carbon Dioxide 24 Anion Gap 14.7 BUN 10 Creatinine 0.5 GFR Calculation Not Reportable Glucose 121 H POC Glucose 152 H Calculated Osmolal ity 268 L Calcium 8.5 10/30/20 10/30/20 22:16 17:08 WBC RBC Hgb Hct MCV MCH MCHC RDW Plt Count MPV Neut % (Auto) Lymph % (Auto) Otero % (Auto) Eos % (Auto) Baso % (Auto) Neut # (Auto) Lymph # (Auto) Otero # (Auto) Eos # (Auto) Baso # (Auto) Nucleated RBC % (a uto) Nucleated RBCs # Sodium Potassium Chloride Carbon Dioxide Anion Gap BUN Creatinine GFR Calculation Glucose POC Glucose 197 H 180 H Calculated Osmolal ity Calcium Vitals: Last Vital Signs Temp 98.0 F 10/31/20 06:01 Pulse 77 10/31/20 06:01 Resp 16 10/31/20 06:01 BP 127/61 10/31/20 06:01 Pulse Ox 96 10/31/20 06:01 Discharge Plan Discharge Patient Disposition: Xfer SNF Condition: Stable Prescriptions: New acetaminophen 500 mg Tablet 1,000 mg PO Q8H Qty: 0 RF: 0 celecoxib 200 mg Capsule 200 mg PO DAILY Qty: 30 RF: 0 tramadol 50 mg Tablet 50 mg PO Q4H PRN (Reason: Mild To Moderate Pain) 7 Days Qty: 30 RF: 0 Continued (DME) Straps for leg splints See Rx Instructions .Route .MEDSUPPLY Qty: 1 RF: 0 ascorbic acid (vitamin C) 500 mg capsule 1,000 mg PO DAILY@0600 RF: 0 biotin 1,000 mcg tablet,chewable 1,000 mcg PO DAILY@1700 RF: 0 (DME) Right knee brace hinged See Rx Instructions .Route .MEDSUPPLY Qty: 1 RF: 0 (DME) Right leg brace straps See Rx Instructions .Route .MEDSUPPLY Qty: 1 RF: 0 (DME) True Metrix Glucose Test Strip Strip See Rx Instructions .ROUTE .MEDSUPPLY Qty: 50 RF: 0 (DME) True Metrix Glucose Test Strip Strip See Rx Instructions .ROUTE .MEDSUPPLY Qty: 50 RF: 2 (DME) lancets [2-In-1 Lancet Device] 30 gauge misc See Rx Instructions .ROUTE .MEDSUPPLY Qty: 100 RF: 2 nitroglycerin [Nitrostat] 0.4 mg tablet, sublingual 0.4 mg SUBLINGUAL Q5M PRN (Reason: chest pain) Qty: 25 RF: 2 (DME) Diabetic shoes with build up on right for heighth See Rx Instructions .Route .MEDSUPPLY Qty: 1 RF: 0 buspirone 15 mg tablet 15 mg PO BID@0600,1700 Qty: 60 RF: 1 omega-3 fatty acids [Fish Oil Concentrate] 1,000 mg capsule 1,000 mg PO BID@0600,1700 RF: 0 lisinopril-hydrochlorothiazide 20-12.5 mg tablet 1 tab PO BID@0600,1700 RF: 0 isosorbide mononitrate 30 mg tablet extended release 24 hr 60 mg PO DAILY@0600 RF: 0 famotidine 20 mg tablet 20 mg PO BID@0600,1700 RF: 0 amlodipine 10 mg tablet 10 mg PO DAILY@0600 RF: 0 cyanocobalamin (vitamin B-12) 1,000 mcg/mL solution 1,000 mcg IM Q30D RF: 0 metoprolol tartrate 50 mg tablet 75 mg PO BID@0600,1700 RF: 0 pyridoxine (vitamin B6) 50 mg tablet 50 mg PO DAILY@0600,1700 RF: 0 Janumet XR 50-1,000 mg tablet, ER multiphase 24 hr 1 tab PO BID@0600,1700 RF: 0 calcium carbonate [Calcium 600] 600 mg calcium (1,500 mg) Tablet 600 mg PO BID@0600,1700 RF: 0 aspirin 81 mg tablet,delayed release (DR/EC) 325 mg PO DAILY RF: 0 Discharge Orders: Discharge Order (Routine); Ordered 10/31/20 Ordered By: Luz Rojo Referrals: [facility] [Outside] Luz Rojo MD [Physician] - 11/19/20 3:45 pm Discharge Diet: Advance as tolerated and Usual diet Discharge Activity: Increase activity as tolerated, Limit activity as instructed, Use walker/crutches as instructed and As per PT/OT instructions Patient Instructions: Tramadol (By mouth), Celecoxib (By mouth) Activity Restrictions/Additional Instructions: Posterior hip precautions. Maintain current dressing. You may remove the dressing at 2 weeks. If it bleeds through, you can remove dressing down to the Dermabond and mesh over top of the Dermabond. Discharge Attestations Time Spent in Discharge Care*: greater than 30 min Specific Discharge Activities: educating patient and documenting/other paperwork Other discharge activites (optional): Working with physical therapy and group home to assure appropriate return Quality Metrics Clinical Quality Measures During this hospital stay, did patient experience: None Coding Level of Care Code Acute g DC note Exam Detailed Diagnoses Avascular necrosis of right femoral head M87.051 Status post hip hemiarthroplasty Z96.649 Subcapital fracture of right hip S72.011G Encounter type: subsequent encounter Fracture healing: with delayed healing Fracture type: closed Orthopedic hardware present Z97.8
[2020-10-31 11:57] LABS: Glucose Point of Care 196 mg/dL (70-110)
[2020-10-31 13:03] VITALS: PULSE 69; RESP 20; TEMP 36.6; O2SAT 96
--- NOTE | 2020-10-31 13:09 | PC.NURSE ---
1309 report given to KATE Simpson at [facility].
[2020-10-31] MEDS: TRAMadol 50 mg Tablet PO (13:37)
== END 2020-10-31 14:00 | disposition skilled nursing facility (03) ==
LOC: MEDSURG 12:06
PROVIDERS: Admitting Provider Specialist; PCP Family Medicine; Visit Provider Specialist
PROC: (CPT 27125; principal; 2020-10-30 08:00)
PROC: (CPT 20680; 2020-10-30 08:00)
DX: S72.011A Unspecified intracapsular fracture of right femur, initial encounter for closed fracture (principal); X58.XXXA Exposure to other specified factors, initial encounter; I25.10 Atherosclerotic heart disease of native coronary artery without angina pectoris; I10 Essential (primary) hypertension; K21.9 Gastro-esophageal reflux disease without esophagitis; E11.9 Type 2 diabetes mellitus without complications; E78.5 Hyperlipidemia, unspecified; M81.0 Age-related osteoporosis without current pathological fracture
CPT/HCPCS: 27130; 36415; 36416; 51702; 72170; 80048; 80053; 81001; 82962; 85025; 87070; 87075; 87205; 88305; 88311; 93005; 96365; 96372; 97116; 97162; 97165; 97530; C1713; C1776; G0378; J0690; J1100; J2250; J2370; J2405; J2704; J2710; J3010; J3370; J3420; J3490; J7030

== ENCOUNTER → 2020-11-19 15:31 | Outpatient (BNVA) | payer OTHER, MEDICARE, MEDICAID, SELFPAY | PROVIDERS: PCP Family Medicine; Visit Provider Specialist | DX: Z47.1 Aftercare following joint replacement surgery (principal); Z96.641 Presence of right artificial hip joint; M16.12 Unilateral primary osteoarthritis, left hip | CPT/HCPCS: 73502 ==

== ENCOUNTER → 2020-12-10 11:51 | Outpatient (BNVA) | payer MEDICARE, MEDICAID, SELFPAY | PROVIDERS: PCP Family Medicine; Visit Provider Family Medicine | DX: D50.8 Other iron deficiency anemias (principal) | CPT/HCPCS: 83540; 85025 ==

== ENCOUNTER → 2021-01-21 10:05 | Outpatient (BNVA) | payer MEDICARE, MEDICAID, SELFPAY | PROVIDERS: PCP Family Medicine; Visit Provider Specialist | DX: Z47.1 Aftercare following joint replacement surgery (principal) | CPT/HCPCS: 73502 ==

== ENCOUNTER → 2021-01-24 09:09 | Outpatient (BNVA) | payer MEDICARE, MEDICAID, SELFPAY | PROVIDERS: PCP Family Medicine; Visit Provider Family Medicine | DX: D50.8 Other iron deficiency anemias (principal); E11.9 Type 2 diabetes mellitus without complications; E78.5 Hyperlipidemia, unspecified; I10 Essential (primary) hypertension; K21.9 Gastro-esophageal reflux disease without esophagitis | CPT/HCPCS: 80053; 80061; 83036; 83540; 84443; 85025 ==

== ENCOUNTER → 2021-04-29 12:27 | Outpatient (BNVA) | payer MEDICARE, MEDICAID, SELFPAY | PROVIDERS: PCP Family Medicine; Visit Provider Family Medicine | DX: E11.9 Type 2 diabetes mellitus without complications (principal); E11.8 Type 2 diabetes mellitus with unspecified complications; E78.5 Hyperlipidemia, unspecified; I10 Essential (primary) hypertension; D50.8 Other iron deficiency anemias | CPT/HCPCS: 80053; 80061; 83036; 85025 ==

== ENCOUNTER → 2021-06-19 11:25 | Outpatient (BNVA) | payer MEDICARE, MEDICAID, SELFPAY | PROVIDERS: PCP Family Medicine; Visit Provider Family Medicine | DX: D50.8 Other iron deficiency anemias (principal); B35.9 Dermatophytosis, unspecified | CPT/HCPCS: 83540; 85025 ==

== ENCOUNTER 2021-07-08 07:24 | Outpatient (CLI) | payer MEDICARE, MEDICAID, SELFPAY ==
--- NOTE | 2021-07-08 07:34 | MM_ITS ---
WS: [id number] BILATERAL 3D TOMOSYNTHESIS DIGITAL DIAGNOSTIC MAMMOGRAPHY WITH CAD CLINICAL INFORMATION: LT BREAST MASS COMPARISON: January 10, 2020 TECHNIQUE: Bilateral CC, MLO, and ML views. FINDINGS: Scattered fibroglandular densities bilaterally. Punctate and lucent center calcifications. Dystrophic calcifications. Vascular calcification. Palpable marker along the LEFT inferior breast medially adjacent to the sternum. Small subcutaneous a symmetric density in this area measuring 11 mm. Ultrasound is pending. ULTRASOUND BREAST LEFT TECHNIQUE: Ultrasound left breast focused area of concern. CLINICAL INFORMATION: LT BREAST MASS COMPARISON: None. FINDINGS: Ultrasound LEFT breast 9:00 position 5 cm from the nipple. There is a complex cystic lesion in the ar ea of concern subdermal in location. Internal echogenic debris. This likely represents a complex seba ceous cyst but technically indeterminant measuring 1.2 x 1.1 x 0.7 CM. Recommend surgical drainage co nsidering persistence and reported recurrence. No visualized sinus tract to the skin. MM/[place] [id number] IMPRESSION:Recommend surgical drainage of the suspected complex sebaceous cyst considering persistence and reported recurrence. This lesion is technically ind eterminate. No visualized sinus tract to the skin. Alternatively this could be sampled with ultrasound-guided biopsy/aspiration BI-RADS: 4-Suspicious Finding-Biopsy Should Be Considered FOLLOW UP: Surgical Biopsy Recommended
== END 2021-07-08 07:25 | disposition home or self-care (01) ==
LOC: RADSHAW 07:25
PROVIDERS: PCP Family Medicine; Visit Provider Family Medicine
DX: N63.25 Unspecified lump in the left breast, overlapping quadrants (principal)
CPT/HCPCS: 76642; 77062

== ENCOUNTER 2021-08-06 10:07 | Outpatient (CLI) | payer MEDICARE, MEDICAID, SELFPAY ==
--- NOTE | 2021-08-06 10:34 | US_ITS ---
WS: [id number] ULTRASOUND LEFT BREAST HISTORY: N63.20 - Unspecified lump in the left breast, unspecified... COMPARISON: 07/08/2021. TECHNIQUE: 2-D and Doppler. There is a well-circumscribed mass without increased vascularity in the medial aspect of the LEFT tess ast. This is nearly directly over the sternum. This mass is very superficial and is most likely a sma ll sebaceous cyst. On a few images there does appear to be tract extending superficial. Patient state s this has not increased in size in the past year. US/US breast LT limited* [id number] IMPRESSION: BI-RADS: 3-Probably Benign FOLLOW-UP: See Report Favor this is probably a sebaceous cyst. Sebaceous cyst should not undergo biop sy because they may perpetuate a significant inflammatory reaction. Surgical re moval would be the exam of choice. I have explained this in depth to the dino chavez
== END 2021-08-06 10:08 | disposition home or self-care (01) ==
LOC: RAD 10:11
PROVIDERS: PCP Family Medicine; Visit Provider Family Medicine
DX: N63.21 Unspecified lump in the left breast, upper outer quadrant (principal)
CPT/HCPCS: 76642; 99204

== ENCOUNTER → 2021-08-22 16:15 | Outpatient (BNVA) | payer MEDICARE, MEDICAID, SELFPAY | PROVIDERS: PCP Family Medicine; Visit Provider Family Medicine | DX: D50.8 Other iron deficiency anemias (principal) | CPT/HCPCS: 85025 ==

== ENCOUNTER → 2021-11-05 15:14 | Outpatient (BNVA) | payer MEDICARE, MEDICAID, SELFPAY | PROVIDERS: PCP Family Medicine; Visit Provider Family Medicine | DX: D64.9 Anemia, unspecified (principal); E11.9 Type 2 diabetes mellitus without complications; E78.5 Hyperlipidemia, unspecified; I10 Essential (primary) hypertension; E11.8 Type 2 diabetes mellitus with unspecified complications; D36.7 Benign neoplasm of other specified sites; K21.9 Gastro-esophageal reflux disease without esophagitis; E53.8 Deficiency of other specified B group vitamins | CPT/HCPCS: 80053; 80061; 83036; 84443; 85025 ==

== ENCOUNTER 2022-01-29 12:16 | Emergency (ER) | payer MEDICARE, MEDICAID, SELFPAY ==
[2022-01-29] VITALS (7 sets, daily range): BP systolic 96–114; BP diastolic 51–81; PULSE 85–122; RESP 16–25; TEMP 36.8; O2SAT 92–99
--- NOTE | 2022-01-29 12:23 | XR_ITS ---
WS: [id number] PORTABLE CHEST HISTORY: Afib COMPARISON: 09/17/2020 Extensive artifact overlying osseous and soft tissue structures. Visualized lungs are well-aerated. No pneumonia. Normal vasculature. No pleural effusion or pneumotho rax. Cardiac size: Normal. Mediastinum/Aorta: Moderate atherosclerosis aorta. Glenohumeral joint arthritis. Bones are osteopenic. Prior cholecystectomy. Thoracolumbar scoliosis. XR/XR chest 1V portable [id number] IMPRESSION: 1. No pneumonia. 2. Moderate atherosclerosis aorta.
--- NOTE | 2022-01-29 12:24 | ECG_ITS ---
[facility] Test Date: 2022-01-29 Pat Name: Mary Harmon Department: Room: Gender: Female Actuarial Consultant: : 1940 Requested By: Lary Moore Order Number: [id number] Kulkarni MD: Arpita Hinojosa M.D. Measurements Intervals [place] Rate: 124 P: TN: QRS: 67 QRSD: 86 T: 27 QT: 280 QTc: 403 Interpretive Statements ATRIAL FIBRILLATION WITH RAPID VENTRICULAR RESPONSE NONSPECIFIC ST & T-WAVE ABNORMALITY Compared to ECG 10/26/2020 13:18:15 Sinus rhythm no longer present T-wave abnormality still present Electronically Signed On 01-30-2022 12:55:56 CDT by Arpita Hinojosa M.D. [email or web address]
--- NOTE | 2022-01-29 12:26 | W.ED.GENADLT ---
HPI - General Adult General: Chief complaint: Arrhythmia/Palpitations Stated complaint: a fib Time Seen by Provider: 01/29/22 12:18 History of Present Illness: Patient is an 81-year-old female with a history of of hypertension, hyperlipidemia, atrial fibrillation, tricuspid valve regurgitation, anxiety presented to the emergency room concerns of atrial fibrillation with RVR. Patient was initially seen at [facility] and was found to have an A. fib with RVR to the 130-150s. Patient was then told to come to the emergency room for further evaluation. Denies nausea/vomiting, fever/chill, chest pain, shortness of breath, abdominal pain, dysuria/hematuria/polyuria, diarrhea/melena/hematochezia. Patient has hx of atrial fibrillation on metoprolol daily. Patient denies taking anticoagulation Onset: unknown Duration:ongoing Location:home Severity:moderate Associated symptoms: Deny chest pain, dyspnea, nausea, rash, palpitations or vomiting Review of Systems Const: Denies: fever(s) or chills Eyes: Denies: change in vision ENMT: Denies: mouth pain Card: Denies: chest pain or palpitations Resp: Denies: dyspnea or non-productive cough GI: Denies: abdominal pain, nausea, vomiting or diarrhea : Denies: dysuria Musc: Denies: extremity pain Skin/Breast: Denies: rash or new lesions Neuro: Denies: weakness in extremities Psych: Reports: other (Normal mood) Artis/Lymph: Denies: easy bruising PFSH ED PFSH: Medical History Acquired deformity of both feet foot drop and pronation with callous Acquired short leg syndrome on right Anxiety Breast nodule right Chronic diarrhea Chronic instability of knee, right knee Degenerative arthritis of knee right Dermoid cyst of left lower extremity Dyslipidemia Essential (primary) hypertension Gait disorder Gastro-esophageal reflux disease without esophagitis History of post-polio syndrome Hyponatremia Osteoporosis Tricuspid valve regurgitation, nonrheumatic Type 2 diabetes mellitus without complications Vitamin B12 deficiency Surgical History H/O: hysterectomy (~1991) History of hip surgery History of right hip replacement Hx of cholecystectomy (~2001) Hx of colonoscopy (~2012) Family History Father Cancer lung Mother Diabetes Stroke Hypertension Social History Smoking and tobacco status: never smoked Alcohol intake: never Adopted: No Lives independently: Yes Household members: none Housing: House Marital status: / Number of children: 3 Highest education level completed: High School Graduate service: No Current occupational status: retired Pets and animals: Yes History of recent travel: No Current gender identity: Female Physical Exam Const: COMMON NORMALS: alert HENMT: COMMON NORMALS: atraumatic HEAD & SCALP: atraumatic MOUTH: moist mucous membranes not abnormal Eye: COMMON NORMALS: EOMs intact bilaterally and conjunctivae normal CONJUNCTIVA: Yes conjunctivae normal Neck/C-Spine: COMMON NORMALS: full ROM and supple Resp: COMMON NORMALS: normal respiratory effort and clear to auscultation bilaterally AUSCULTATION: clear to auscultation bilaterally Cardio: OTHER: +irregular tachycardia GI: COMMON NORMALS: Soft to palpation and non-tender PALPATION: Yes Soft to palpation OTHER: No focal TTP. NO guarding rebound, guarding, rigidity. No CVA tenderness to percussion. Neg Barry/Neg McBurney's point tenderness, no suprabupic tenderness to palpation. Extremity: COMMON NORMALS: full ROM Neuro: SENSORIUM/ORIENTATION: Yes alert MOTOR EXAM: No Abnormal motor strength present and Other motor observations present (no focal motor deficits) Psych: COMMON NORMALS: speech normal SPEECH: Yes normal speech MOOD & AFFECT: Yes euthymic mood Course Vital Signs: Vital signs: Vital Signs Temperature 98.2 F 01/29/22 12:18 Pulse Rate 91 01/29/22 16:28 Respiratory Rate 20 H 01/29/22 16:28 Blood Pressure 106/73 01/29/22 16:28 Pulse Oximetry 95 01/29/22 16:28 Oxygen Delivery Me thod 01/29/22 16:27 Oxygen Flow Rate 2 01/29/22 13:00 [facility] - General Adult Medical Decision Making Patient is an 81-year-old female with a history of of hypertension, hyperlipidemia, atrial fibrillation, tricuspid valve regurgitation, anxiety presented to the emergency room concerns of atrial fibrillation with RVR. On the electronic device monitor, patient was noted to be in A. fib with RVR to the 140s to 150s with heart rate. EKG showed atrial fibrillation without any ST elevation. Patient received 20 mg Cardizem with spontaneous conversion back to normal sinus rhythm. Lab work showed white count 11.9. Hemoglobin 10.7 similar to baseline. X-ray chest appears to be clear. Rest of lab work-up including electrolytes TSH/T4 and troponin within normal limit. Patient has a HASBLED score of 2 (age >65, ASA use) which puts patient in moderate risk for major bleeding just patient started on Eliquis. However patient also has a Miguel Vasc2 greater than 2. For decision making with patient I have given patient a prescription for Eliquis. Patient instructed follow-up with primary care provider to decide whether patient needs to be started on anticoagulation for prevention of strokes. I have given patient follow up with our home health care case manager to be seen by our outpatient Cardiology for management of atrial fibrillation. Patient aware of a call from our home health care case manager to schedule for appointment(s) and verbalizes understanding of the importance of following up. Rx eliquis for atrial fibrillation Disposition: Discharge. Patient counseled regarding diagnostic impression, treatment plan. Patient given ED strict return precautions to return for continuation, worsening, or development of new symptoms. Instructed to f/u w/ PCP regarding symptoms today. Patient verbalized understanding. Lab Data : 01/29/22 12:40 01/29/22 12:40 Radiology Impressions Chest X-Ray 01/29/22 12:23 IMPRESSION: 1. No pneumonia. 2. Moderate atherosclerosis aorta. Laboratory Results WBC 11.9 10^3/uL (4.0-10.0) H 01/29/22 12:40 RBC 3.97 10^6/uL (4.1-5.3) L 01/29/22 12:40 Hgb 10.7 g/dL (11.5-15.3) L 01/29/22 12:40 Hct 33.0 % (37.0-47.0) L 01/29/22 12:40 MCV 83.1 fl (81-99) 01/29/22 12:40 MCH 27.0 pg (28.0-34.0) L 01/29/22 12:40 MCHC 32.4 g/dL (30.0-36.0) 01/29/22 12:40 RDW 14.1 % (12.1-15.1) 01/29/22 12:40 Plt Count 378 10^3/cmm (130-400) 01/29/22 12:40 MPV 9.6 fL (7.4-10.4) 01/29/22 12:40 Neut % (Auto) 80.7 % 01/29/22 12:40 Lymph % (Auto) 10.8 % 01/29/22 12:40 Hitchcock % (Auto) 6.9 % 01/29/22 12:40 Eos % (Auto) 0.8 % 01/29/22 12:40 Baso % (Auto) 0.3 % 01/29/22 12:40 Neut # (Auto) 9.60 10^3/uL (1.8-7.7) H 01/29/22 12:40 Lymph # (Auto) 1.3 10^3/uL (0.8-4.8) 01/29/22 12:40 Hitchcock # (Auto) 0.8 10^3/uL (0.2-0.9) 01/29/22 12:40 Eos # (Auto) 0.1 10^3/uL (0.0-0.8) 01/29/22 12:40 Baso # (Auto) 0.0 10^3/uL (0.0-0.1) 01/29/22 12:40 Nucleated RBC % (auto) 0 % 01/29/22 12:40 Nucleated RBCs # 0.0 /100WBC 01/29/22 12:40 Sodium 136 mmol/L (136-145) 01/29/22 12:40 Potassium 4.0 mmol/L (3.5-5.1) 01/29/22 12:40 Chloride 97 mmol/L (98-107) L 01/29/22 12:40 Carbon Dioxide 23 mmol/L (22-29) 01/29/22 12:40 Anion Gap 20.0 (5-19) H 01/29/22 12:40 BUN 10 mg/dL (8-23) 01/29/22 12:40 Creatinine 0.5 mg/dL (0.5-0.9) 01/29/22 12:40 GFR Calculation Not Reportable 01/29/22 12:40 Glucose 113 mg/dL (65-115) 01/29/22 12:40 Calculated Osmolality 282 mOsm/kg (285-295) L 01/29/22 12:40 Calcium 10.1 mg/dL (8.5-10.5) 01/29/22 12:40 Troponin T Baseline 12 ng/L (0-10) H 01/29/22 12:40 Troponin T 120 Minute 12.91 ng/L (0-10) H 01/29/22 14:50 Delta Troponin T 0.91 ABS# (0-10) 01/29/22 14:50 TSH 3.50 uIU/mL (0.27-4.20) 01/29/22 12:40 Free T4 1.34 ng/dL (0.82-1.77) 01/29/22 12:40 Imaging Data Other Imaging: Radiologist's impression: [facility] [address] XRay Report Signed Patient: Mary Harmon Unit #: [id number] : 1940 Age/Sex: 81 / F ADM Date: 01/29/22 Loc: ER Room/Bed: Attending Dr: Ordering Provider/Ordering MD: Lary Moore MD Date of Service: 01/29/22 Procedure(s): XR chest 1V portable [id number] Accession Number(s): [id number] Report Number: [id number] WS: [id number] PORTABLE CHEST HISTORY: Afib COMPARISON: 09/17/2020 Extensive artifact overlying osseous and soft tissue structures. Visualized lungs are well-aerated. No pneumonia. Normal vasculature. No pleural effusion or pneumothorax. Cardiac size: Normal. Mediastinum/Aorta: Moderate atherosclerosis aorta. Glenohumeral joint arthritis. Bones are osteopenic. Prior cholecystectomy. Thoracolumbar scoliosis. XR/XR chest 1V portable [id number] IMPRESSION: ? 1.? No pneumonia. 2.? Moderate atherosclerosis aorta. ? ? ? Dictated By: Geri Kim DO Signed By: Geri Kim DO Signed Date/Time: 01/29/22 1303 DD/ 1302 Discharge Plan Discharge Patient Disposition: Home Clinical Impression: Atrial fibrillation Condition: Stable Prescriptions: New Eliquis 5 mg tablet 5 mg PO BID 15 Days Qty: 30 0RF No Action (DME) Straps for leg splints See Rx Instructions .Route .MEDSUPPLY Qty: 1 0RF Rx Instructions: As directed (DME) lancets [BD Ultra-Fine II Lancets] 30 gauge misc See Rx Instructions .Route Qty: 100 0RF Rx Instructions: As directed (DME) blood sugar diagnostic Strip See Rx Instructions .Route Qty: 100 0RF Rx Instructions: As directed (DME) Right knee brace hinged See Rx Instructions .Route .MEDSUPPLY Qty: 1 0RF Rx Instructions: As directed (DME) Right leg brace straps See Rx Instructions .Route .MEDSUPPLY Qty: 1 0RF Rx Instructions: As directed. Leg brace is not working well as straps are broken. albuterol sulfate [ProAir HFA] 90 mcg/actuation HFA aerosol inhaler 2 puff inhalation Q6H PRN (Reason: shortness of breath or wheezing) Qty: 8.5 0RF (DME) New left leg brace for shoe See Rx Instructions .Route .MEDSUPPLY Qty: 1 0RF Rx Instructions: As directed (DME) True Metrix Glucose Test Strip Strip See Rx Instructions .ROUTE .MEDSUPPLY Qty: 50 2RF Rx Instructions: ONCE DAILY (DME) blood-glucose meter Kit See Rx Instructions .Route Qty: 1 0RF Rx Instructions: use daily to check blood sugars (DME) new left AFO and repairs to right AFO See Rx Instructions .Route .MEDSUPPLY Qty: 1 0RF Rx Instructions: As directed (DME) True Metrix Glucose Test Strip Strip See Rx Instructions .ROUTE .MEDSUPPLY Qty: 50 2RF Rx Instructions: As directed (DME) lancets [2-In-1 Lancet Device] 30 gauge misc See Rx Instructions .ROUTE .MEDSUPPLY Qty: 100 2RF Rx Instructions: As directed (DME) Diabetic shoes with build up on right for heighth See Rx Instructions .Route .MEDSUPPLY Qty: 1 0RF Rx Instructions: As directed cyanocobalamin (vitamin B-12) 1,000 mcg/mL solution 1,000 mcg IM Q30D Qty: 1 1RF nitroglycerin 0.4 mg tablet, sublingual See Rx Instructions .ROUTE .COMPLEX Qty: 25 2RF Dose Instruction: DISSOLVE 1 TABLET UNDER THE TONGUE EVERY 5 MINUTES NEEDED FOR CHEST PAIN. DO NOT EXCEED A TOTAL OF 3 DOSES IN 15 MINUTES. Rx Instructions: DISSOLVE 1 TABLET UNDER THE TONGUE EVERY 5 MINUTES NEEDED FOR CHEST PAIN. DO NOT EXCEED A TOTAL OF 3 DOSES IN 15 MINUTES. pyridoxine (vitamin B6) 50 mg tablet 50 mg PO DAILY@08 calcium carbonate [Calcium 600] 600 mg calcium (1,500 mg) Tablet 600 mg PO BID@08,20 digestive enzymes Tablet 1 tab PO DAILY Fish Oil 300-1,000 mg Capsule 1 cap PO DAILY lisinopril-hydrochlorothiazide 20-12.5 mg tablet 1 tab PO BID isosorbide mononitrate 30 mg tablet extended release 24 hr 60 mg PO DAILY aspirin 81 mg tablet,delayed release (DR/EC) 81 mg PO DAILY famotidine 20 mg tablet 20 mg PO BID amlodipine 10 mg tablet 10 mg PO DAILY metoprolol tartrate 50 mg tablet 50 mg PO BID buspirone 15 mg tablet 15 mg PO BID Janumet XR 50-1,000 mg tablet, ER multiphase 24 hr 1 tab PO BID Discharge Orders: Discharge ED (Routine); Ordered 01/29/22 Ordered By: Lary Moore Referrals: Sariah Nichole MD [Primary Care Provider] - Discharge Diet: Advance as tolerated Discharge Activity: Increase activity as tolerated Activity Restrictions/Additional Instructions: Our home health care case manager will have you follow-up with Cardiology in the next few days. You would be expected to have a phone call with our home health care case manager who will put you on the schedule. You can expect a call from us in the next 2-3 days. If you don't hear from us, call us back in the emergency room at [phone]. Come back if you have any new or concerning issues. Coding Level of Care Code ED Clinical Coordinator for Reuben Fwdelvin Exam Comprehensive
[2022-01-29] MEDS: sodium chloride 0.9% 500 ML IV (12:37)
[2022-01-29] MEDS: dilTIAZem 5 mg/mL SDV 5 mL 20 MG IVP (12:38)
--- NOTE | 2022-01-29 12:45 | PC.NURSE ---
Patient is on continuous CM and SP02 monitor at bedside.
[2022-01-29 12:47] LABS: Basophils % 0.3 %; Eosinophils # 0.1 10^3/uL (0.0-0.8); Eosinophils % 0.8 %; Hemoglobin 10.7 g/dL (11.5-15.3); Lymphocytes # 1.3 10^3/uL (0.8-4.8); Lymphocytes % 10.8 %; Mean Corpuscular HGB Conc 32.4 g/dL (30.0-36.0); Mean Corpuscular Volume 83.1 fl (81-99); Mean Platelet Volume 9.6 fL (7.4-10.4); Monocytes # 0.8 10^3/uL (0.2-0.9); Monocytes % 6.9 %; Neutrophils % 80.7 %; Nucleated Red Blood Cells % 0 %; Platelet Count 378 10^3/cmm (130-400); Red Blood Count 3.97 10^6/uL (4.1-5.3); Red Cell Distribution Width 14.1 % (12.1-15.1); White Blood Count 11.9 10^3/uL (4.0-10.0)
[2022-01-29] MEDS: dilTIAZem 30 mg Tablet PO (12:53)
[2022-01-29 13:08] LABS: Troponin(5th) Baseline 12 ng/L (0-10)
[2022-01-29 13:18] LABS: Blood Urea Nitrogen 10 mg/dL (8-23); Calcium 10.1 mg/dL (8.5-10.5); Carbon Dioxide 23 mmol/L (22-29); Chloride 97 mmol/L (98-107); Creatinine Clr Calc Pharmacy 49.3379; Free T4 Free Thyroxine 1.34 ng/dL (0.82-1.77); Glucose 113 mg/dL (65-115); Osmolality Calculated 282 mOsm/kg (285-295); Sodium 136 mmol/L (136-145)
--- NOTE | 2022-01-29 15:01 | DCPLANNER ---
Addendum entered by Maureen Earl 02/06/22 11:51: Patient had a follow up appointment scheduled for 02.05.[address] Bourgeois at [facility] - patient did attend appointment. Original Note: industrial hygiene manager had message to schedule a follow up appointment for patient with cardiology. industrial hygiene manager sent patients information to the front office staff at [facility]. Patients information will be printed and reviewed. Clinic will call patient with appointment information.
[2022-01-29 15:29] LABS: Troponin 5 2HR 12.91 ng/L (0-10)
[2022-01-29 15:30] LABS: Troponin 5 2HR Delta 0.91 ABS# (0-10)
== END 2022-01-29 16:30 | disposition home or self-care (01) ==
PROVIDERS: Emergency Provider Emergency Medicine; PCP Family Medicine
DX: I48.91 Unspecified atrial fibrillation (principal); Z79.82 Long term (current) use of aspirin; E78.5 Hyperlipidemia, unspecified; I10 Essential (primary) hypertension; E11.9 Type 2 diabetes mellitus without complications
CPT/HCPCS: 36415; 71045; 80048; 84439; 84443; 84484; 85025; 93005; 96361; 96374; 99285; J3490; J7040

== ENCOUNTER → 2022-02-05 10:23 | Outpatient (BNVA) | payer MEDICARE, MEDICAID, SELFPAY | PROVIDERS: PCP Family Medicine; Visit Provider Internal Medicine Cardiovascular Disease | DX: I48.91 Unspecified atrial fibrillation (principal); R55 Syncope and collapse; E11.9 Type 2 diabetes mellitus without complications; E78.5 Hyperlipidemia, unspecified; I10 Essential (primary) hypertension; Z79.84 Long term (current) use of oral hypoglycemic drugs | CPT/HCPCS: 99204; 99205 ==

== ENCOUNTER → 2022-02-26 09:12 | Outpatient (BNVA) | payer MEDICARE, MEDICAID, SELFPAY | PROVIDERS: PCP Family Medicine; Visit Provider Family Medicine | DX: R06.02 Shortness of breath (principal); I48.91 Unspecified atrial fibrillation; Z86.12 Personal history of poliomyelitis | CPT/HCPCS: 87426 ==

== ENCOUNTER 2022-03-24 08:58 | Observation (INO) | payer MEDICARE, MEDICAID, SELFPAY ==
[2022-03-24] VITALS (81 sets, daily range): BP systolic 91–147; BP diastolic 60–91; PULSE 55–165; RESP 15–35; TEMP 36.6–36.7; O2SAT 88–98; BMI 23.7
--- NOTE | 2022-03-24 09:08 | ECG_ITS ---
[facility] Test Date: 2022-03-24 Pat Name: Mary Harmon Department: Room: Gender: Female Director Network Development: : 1940 Requested By: Olman Smallwood Order Number: [id number] Cayla MD: Jose Manuel Gibbs M.D. Measurements Intervals [place] Rate: 171 P: 0 PA: 0 QRS: 39 QRSD: 84 T: 0 QT: 248 QTc: 419 Interpretive Statements ATRIAL FIBRILLATION WITH RAPID VENTRICULAR RESPONSE NONSPECIFIC ST & T-WAVE ABNORMALITY Compared to ECG 01/29/2022 12:24:11 No significant changes Electronically Signed On 03-24-2022 19:04:27 [employer] by Jose Manuel Gibbs M.D. [email or web address]
--- NOTE | 2022-03-24 09:11 | XR_ITS ---
WS: [id number] EXAMINATION: XR chest 1V portable [id number] DATE: 03/24/2022 9:21 AM CLINICAL HISTORY: Cough and dyspnea TECHNIQUE: A single, portable frontal chest x-ray was obtained. COMPARISON: 01/29/2022 X- EXAMINATION: XR chest 1V portable [id number] FINDINGS: There are scattered parenchymal and perihilar granulomatous calcifications. There is a small area of right basal atelectasis/possible infiltrate The cardiac and mediastinal outlines are unremarkable wit h prominent pulmonary vascular congestive changes suggested in each perihilar area. There are small b ilateral pleural effusions slightly greater on the left. There is calcific aortic change. Degenerativ e spine changes are present. XR/XR chest 1V portable [id number] IMPRESSION: CLINICAL CORRELATION SUGGESTED FOR POSSIBLE EARLY PULMONARY VASCULAR CONGESTION WITH BILATERAL PLEURAL EFFUSIONS. POSSIBLE RIGHT BASAL ATELECTASIS VERSUS INGRID Y INFILTRATE..
[2022-03-24] MEDS: dilTIAZem 5 mg/mL SDV 5 mL 20 MG IVP (09:18)
[2022-03-24] MEDS: dilTIAZem 100 MG in sodium chloride 0.9% (add-van) 100 ML IV (09:44)
[2022-03-24 09:49] LABS: Basophils % 0.3 %; Eosinophils % 0.3 %; Hematocrit 39.6 % (37.0-47.0); Hemoglobin 12.3 g/dL (11.5-15.3); Lymphocytes # 1.6 10^3/uL (0.8-4.8); Lymphocytes % 15.7 %; Mean Corpuscular HGB Conc 31.1 g/dL (30.0-36.0); Mean Corpuscular Hemoglobin 26.2 pg (28.0-34.0); Mean Corpuscular Volume 84.3 fl (81-99); Mean Platelet Volume 10.4 fL (7.4-10.4); Monocytes # 0.6 10^3/uL (0.2-0.9); Monocytes % 5.8 %; Neutrophils # 7.97 10^3/uL (1.8-7.7); Neutrophils % 77.5 %; Nucleated Red Blood Cells % 0 %; Platelet Count 292 10^3/cmm (130-400); Red Cell Distribution Width 16.8 % (12.1-15.1); White Blood Count 10.3 10^3/uL (4.0-10.0)
--- NOTE | 2022-03-24 09:55 | W.ED.ARRPALP ---
HPI - Arrhythmia/Palpitations General: Chief Complaint: Arrhythmia/Palpitations Stated Complaint: IRREGULAR HR/ DYSPNEA Time Seen by Provider: 03/24/22 09:07 Source: patient Mode of arrival: ambulatory History of Present Illness: 81-year-old female with a history of intermittent atrial fibrillation has been difficult to control over the last couple of months evidently. Yesterday afternoon she began to notice a rapid heart rate continued throughout the night she has not had any chest pain was admitted had some worsening orthopnea she is still denying any chest pain at this time. She denies fever sweats chills. No vomiting no diarrhea no abdominal pain. No recent change in any of her medications. She has taken all of her regular medicines denies any recent change in medications. MD complaint: rapid heart beat, heart racing and irregular heart beat Onset (ago): hour(s) (16-18) Duration: constant Severity: moderate Context: occurred during rest Arrhythmia history: atrial fibrillation Associated symptoms: Deny anxiety, cough, diaphoresis, muscle cramps, nausea, paresthesias, pre-syncope, sense of impending doom, short of breath, syncope or vomiting Review of Systems Const: Denies: diaphoresis ENMT: Denies: throat pain, ear or mastoid pain, nasal discharge or nasal congestion Card: Denies: syncope or pre-syncope Resp: Denies: dyspnea, productive cough or non-productive cough GI: Denies: nausea or vomiting : Denies: flank pain, difficulty voiding, dysuria, urinary frequency or urinary urgency Musc: Denies: muscle cramps Skin/Breast: Denies: rash or pruritus Psych: Denies: anxiety PFSH ED PFSH: Medical History Acquired deformity of both feet foot drop and pronation with callous Acquired short leg syndrome on right Anxiety Breast nodule right Chronic diarrhea Chronic instability of knee, right knee Degenerative arthritis of knee right Dermoid cyst of left lower extremity Dyslipidemia Essential (primary) hypertension Gait disorder Gastro-esophageal reflux disease without esophagitis History of post-polio syndrome Hyponatremia Osteoporosis Tricuspid valve regurgitation, nonrheumatic Type 2 diabetes mellitus without complications Vitamin B12 deficiency Surgical History H/O: hysterectomy (~1991) History of hip surgery History of right hip replacement Hx of cholecystectomy (~2001) Hx of colonoscopy (~2012) Family History Father Cancer lung Mother Diabetes Stroke Hypertension Social History Smoking and tobacco status: never smoked Alcohol intake: never Adopted: No Lives independently: Yes Household members: none Housing: House Marital status: / Number of children: 3 Highest education level completed: High School Graduate service: No Current occupational status: retired Pets and animals: Yes History of recent travel: No Current gender identity: Female Physical Exam Const: COMMON NORMALS: no acute distress GENERAL APPEARANCE: cooperative and comfortable ORIENTATION/CONSCIOUSNESS: Yes awake, Yes oriented to person, Yes oriented to place and Yes oriented to time HENMT: COMMON NORMALS: normocephalic, atraumatic and hearing grossly normal bilaterally HEAD & SCALP: normocephalic and atraumatic Resp: COMMON NORMALS: normal respiratory effort, No retractions and No use of accessory muscles AUSCULTATION: crackles Laterality: bilateral Cardio: RATE: tachycardic RHYTHM: abnormal rhythm irregularly irregular GI: COMMON NORMALS: Soft to palpation and No hepatosplenomegaly present AUSCULTATION: Yes normoactive bowel sounds PALPATION: Yes Soft to palpation, No Tenderness to palpation present (GI), No Guarding due to palpation present (GI) and Yes No hepatosplenomegaly present Extremity: COMMON NORMALS: normal to inspection, capillary refill normal, no clubbing, cyanosis or edema, no calf tenderness and no pedal edema Neuro: SENSORIUM/ORIENTATION: Yes oriented to person, Yes oriented to place and Yes oriented to time Skin: COMMON NORMALS: no rashes or lesions noted GENERAL SKIN EXAM: no rashes or lesions noted Course Vital Signs: Vital signs: Vital Signs Temperature 98.0 F 03/24/22 08:59 Pulse Rate 138 H 03/24/22 08:59 Respiratory Rate 16 03/24/22 08:59 Blood Pressure 121/79 03/24/22 08:59 Pulse Oximetry 95 03/24/22 08:59 Oxygen Delivery Me thod 03/24/22 08:59 MDM - Arrhythmia/Palpitations Medical Decision Making Atrial fibrillation rare ventricular response now having developed pleural effusions with congestive heart failure. She has been difficult to manage as paroxysmal episodes her current outpatient medication is not keeping her rate controlled. She is on diltiazem 180 daily and also on apixaban and metoprolol. Will admit patient she is currently on diltiazem at 7 1/2 mg/h will need medication adjustment for rate control is already on anticoagulation. Her symptoms are much improved after rate is controlled. Medical Records I reviewed the patient's medical records. Lab Data I reviewed the patient's lab results. 03/24/22 09:42 12 09:42 Radiology Impressions Chest X-Ray 03/24/22 09:11 IMPRESSION: CLINICAL CORRELATION SUGGESTED FOR POSSIBLE EARLY PULMONARY VASCULAR CONGESTION WITH BILATERAL PLEURAL EFFUSIONS. POSSIBLE RIGHT BASAL ATELECTASIS VERSUS EARLY INFILTRATE.. Laboratory Results WBC 10.3 10^3/uL (4.0-10.0) H 03/24/22 09:42 RBC 4.70 10^6/uL (4.1-5.3) 03/24/22 09:42 Hgb 12.3 g/dL (11.5-15.3) 03/24/22 09:42 Hct 39.6 % (37.0-47.0) 03/24/22 09:42 MCV 84.3 fl (81-99) 03/24/22 09:42 MCH 26.2 pg (28.0-34.0) L 03/24/22 09:42 MCHC 31.1 g/dL (30.0-36.0) 03/24/22 09:42 RDW 16.8 % (12.1-15.1) H 03/24/22 09:42 Plt Count 292 10^3/cmm (130-400) 03/24/22 09:42 MPV 10.4 fL (7.4-10.4) 03/24/22 09:42 Neut % (Auto) 77.5 % 03/24/22 09:42 Lymph % (Auto) 15.7 % 03/24/22 09:42 [place] % (Auto) 5.8 % 03/24/22 09:42 Eos % (Auto) 0.3 % 03/24/22 09:42 Baso % (Auto) 0.3 % 03/24/22 09:42 Neut # (Auto) 7.97 10^3/uL (1.8-7.7) H 03/24/22 09:42 Lymph # (Auto) 1.6 10^3/uL (0.8-4.8) 03/24/22 09:42 [place] # (Auto) 0.6 10^3/uL (0.2-0.9) 03/24/22 09:42 Eos # (Auto) 0.0 10^3/uL (0.0-0.8) 03/24/22 09:42 Baso # (Auto) 0.0 10^3/uL (0.0-0.1) 03/24/22 09:42 Nucleated RBC % (auto) 0 % 03/24/22 09:42 Nucleated RBCs # 0.0 /100WBC 03/24/22 09:42 Sodium 135 mmol/L (136-145) L 03/24/22 09:42 Potassium 3.9 mmol/L (3.5-5.1) 03/24/22 09:42 Chloride 98 mmol/L (98-107) 03/24/22 09:42 Carbon Dioxide 22 mmol/L (22-29) 03/24/22 09:42 Anion Gap 18.9 (5-19) 03/24/22 09:42 BUN 12 mg/dL (8-23) 03/24/22 09:42 Creatinine 0.5 mg/dL (0.5-0.9) 03/24/22 09:42 GFR Calculation Not Reportable 03/24/22 09:42 Glucose 147 mg/dL (65-115) H 03/24/22 09:42 Calculated Osmolality 282 mOsm/kg (285-295) L 03/24/22 09:42 Calcium 9.8 mg/dL (8.5-10.5) 03/24/22 09:42 Total Bilirubin 0.4 mg/dL (0.15-1.2) 03/24/22 09:42 AST 17 U/L (0-32) 03/24/22 09:42 ALT 15 U/L (0-33) 03/24/22 09:42 Alkaline Phosphatase 87 U/L (35-105) 03/24/22 09:42 NT-Pro-B Natriuret Pep 4462 pg/mL (0-450) H 03/24/22 09:42 Total Protein 7.3 g/dL (6.6-8.7) 12 09:42 Albumin 4.0 g/dL (3.5-5.2) 12 09:42 Globulin 3.3 g/dL (1.3-4.6) 03/24/22 09:42 Discharge Plan Discharge Patient Disposition: Admitted As Inpatient Clinical Impression: Atrial fibrillation with rapid ventricular response, Congestive heart failure Condition: Stable Prescriptions: No Action (DME) Straps for leg splints See Rx Instructions .Route .MEDSUPPLY Qty: 1 0RF Rx Instructions: As directed (DME) blood sugar diagnostic Strip See Rx Instructions .Route Qty: 100 0RF Rx Instructions: As directed (DME) Right knee brace hinged See Rx Instructions .Route .MEDSUPPLY Qty: 1 0RF Rx Instructions: As directed (DME) Right leg brace straps See Rx Instructions .Route .MEDSUPPLY Qty: 1 0RF Rx Instructions: As directed. Leg brace is not working well as straps are broken. (DME) oxygen 2L bnc continuous. See Rx Instructions .Route .MEDSUPPLY Qty: 1 0RF Rx Instructions: As directed (DME) New left leg brace for shoe See Rx Instructions .Route .MEDSUPPLY Qty: 1 0RF Rx Instructions: As directed (DME) blood-glucose meter Kit See Rx Instructions .Route Qty: 1 0RF Rx Instructions: use daily to check blood sugars (DME) new left AFO and repairs to right AFO See Rx Instructions .Route .MEDSUPPLY Qty: 1 0RF Rx Instructions: As directed (DME) lancets [2-In-1 Lancet Device] 30 gauge misc See Rx Instructions .ROUTE .MEDSUPPLY Qty: 100 2RF Rx Instructions: As directed (DME) Diabetic shoes with build up on right for heighth See Rx Instructions .Route .MEDSUPPLY Qty: 1 0RF Rx Instructions: As directed cyanocobalamin (vitamin B-12) 1,000 mcg/mL solution 1,000 mcg IM Q30D Qty: 1 1RF nitroglycerin 0.4 mg tablet, sublingual See Rx Instructions .ROUTE .COMPLEX Qty: 25 2RF Dose Instruction: DISSOLVE 1 TABLET UNDER THE TONGUE EVERY 5 MINUTES NEEDED FOR CHEST PAIN. DO NOT EXCEED A TOTAL OF 3 DOSES IN 15 MINUTES. Rx Instructions: DISSOLVE 1 TABLET UNDER THE TONGUE EVERY 5 MINUTES NEEDED FOR CHEST PAIN. DO NOT EXCEED A TOTAL OF 3 DOSES IN 15 MINUTES. famotidine 20 mg tablet 20 mg PO BID Qty: 60 5RF diltiazem HCl 180 mg capsule,extended release 24 hr 180 mg PO DAILY Qty: 90 3RF metoprolol tartrate 75 mg tablet 75 mg PO BID Qty: 180 3RF pyridoxine (vitamin B6) 50 mg tablet 50 mg PO DAILY@08 calcium carbonate [Calcium 600] 600 mg calcium (1,500 mg) Tablet 600 mg PO BID@08,20 digestive enzymes Tablet 1 tab PO DAILY omega 4-hcu-ags-fish oil [Fish Oil] 300-1,000 mg Capsule 1 cap PO DAILY lisinopril-hydrochlorothiazide 20-12.5 mg tablet 1 tab PO BID isosorbide mononitrate 30 mg tablet extended release 24 hr 60 mg PO DAILY buspirone 15 mg tablet 15 mg PO BID Janumet XR 50-1,000 mg tablet, ER multiphase 24 hr 1 tab PO BID Eliquis 5 mg tablet 5 mg PO BID Referrals: Sariah Nichole MD [Primary Care Provider] - Coding Level of Care Code ED Cloth Mercerizer Operator for Chg Fwd Exam Detailed
[2022-03-24 10:24] LABS: Alanine Aminotransferase 15 U/L (0-33); Alkaline Phosphatase 87 U/L (35-105); Anion Gap 18.9 (5-19); Aspartate Amino Transferase 17 U/L (0-32); Blood Urea Nitrogen 12 mg/dL (8-23); Calcium 9.8 mg/dL (8.5-10.5); Carbon Dioxide 22 mmol/L (22-29); Chloride 98 mmol/L (98-107); Globulin 3.3 g/dL (1.3-4.6); Glucose 147 mg/dL (65-115); NT Pro B Type Natriuretic Pept 4462 pg/mL (0-450); Osmolality Calculated 282 mOsm/kg (285-295); Potassium 3.9 mmol/L (3.5-5.1); Sodium 135 mmol/L (136-145); Total Bilirubin 0.4 mg/dL (0.15-1.2); Total Protein 7.3 g/dL (6.6-8.7)
[2022-03-24 12:43] LABS: Magnesium 1.6 mg/dL (1.7-2.3)
[2022-03-24 13:25] LABS: Adenovirus Not Detected (NOT DETECT); Chlamydia Pneumoniae Not Detected (NOT DETECT); Coronavirus 229E,HKU1,NL63,OC4 Not Detected (NOT DETECT); Human Metapneumovirus Not Detected (NOT DETECT); Human Rhinovirus/Enterovirus Not Detected (NOT DETECT); Influenza A Not Detected (NOT DETECT); Influenza A H1 Not Detected (NOT DETECT); Influenza A H1-2009 Not Detected (NOT DETECT); Influenza A H3 Not Detected (NOT DETECT); Influenza B Not Detected (NOT DETECT); Mycoplasma Pneumoniae Not Detected (NOT DETECT); Parainfluenza Virus Type 1 Not Detected (NOT DETECT); Parainfluenza Virus Type 2 Not Detected (NOT DETECT); Parainfluenza Virus Type 3 Not Detected (NOT DETECT); Parainfluenza Virus Type 4 Not Detected (NOT DETECT); Respiratory Syncytial Virus A Not Detected (NOT DETECT); Respiratory Syncytial Virus B Not Detected (NOT DETECT); SARS-COV-2 Not Detected (NOT DETECT)
[2022-03-24 13:33] LABS: Influenza A by IFA negative (Negative); Influenza B by IFA negative (Negative)
--- NOTE | 2022-03-24 14:10 | P.HP_ITS ---
Providers/Chief Complaint Admitting Physician: Phillip Mirza MD Primary Care Provider: Sariah Nichole MD Chief Complaint: IRREGULAR HR/ DYSPNEA History of Present Illness Mary Harmon is a 81 year old female coming into the emergency department with complaints of palpitations, weakness, shortness of breath going on for the last 2 months. She reports most of the time when she checks her heartbeat, it is over 100. Her chest feels heavy at times as well. She last saw cardiology in January, an event monitor was ordered and echocardiogram. She has yet to get the echo. It appears on the event monitor average heart rate was 132, no significant bradycardia. She believes she is taking all her medicine as directed. She is also on anticoagulation. She denies any recent febrile illnesses. No blood in stool or black or tarry stool. Review of Systems General: Reports: 10 or more systems reviewed and unremarkable except in HPI and below Const: Reports: fatigue and malaise; Denies: fever(s) or chills Eyes: Denies: change in vision ENMT: Denies: throat pain Card: Reports: palpitations Resp: Reports: dyspnea GI: Denies: abdominal pain, nausea, vomiting, hematochezia or melena : Denies: flank pain Musc: Denies: neck pain Skin/Breast: Denies: rash Neuro: Denies: headache(s) Psych: Denies: anxiety or depression Endo: Denies: polyuria Artis/Lymph: Denies: easy bruising All/Imm: Denies: urticaria Medications/Allergies Home Medications Medication Instructions Recorded Confirmed Last Taken Type lancets 30 gauge (2-In-1 Lancet #100 ea 05/06/19 03/24/22 Unknown Rx Device) Right knee brace hinged #1 ea 11/18/19 03/24/22 Unknown Rx Right leg brace straps #1 ea 11/18/19 03/24/22 Unknown Rx Straps for leg splints #1 ea 05/22/20 03/24/22 Unknown Rx Diabetic shoes with build up on #1 ea 05/24/20 03/24/22 Unknown Rx right for heighth calcium carbonate 600 mg calcium 600 mg PO BID@08,20 09/17/20 03/24/22 03/23/22 History (1,500 mg) tablet (Calcium) pyridoxine (vitamin B6) 50 mg 50 mg PO DAILY@08 09/17/20 03/24/22 03/23/22 History tablet blood sugar diagnostic #100 ea 03/27/21 03/24/22 Unknown Rx cyanocobalamin (vitamin B-12) 1,000 mcg IM Q30D #1 mL 05/16/21 03/24/22 Unknown Rx 1,000 mcg/mL injection solution New left leg brace for shoe #1 ea 08/22/21 03/24/22 Unknown Rx nitroglycerin 0.4 mg sublingual See Rx Instructions .Route 08/22/21 03/24/22 Unknown Rx tablet .COMPLEX #25 tabs blood-glucose meter #1 ea 12/04/21 03/24/22 Unknown Rx new left AFO and repairs to right #1 ea 12/04/21 03/24/22 Unknown Rx AFO buspirone 15 mg tablet 15 mg PO BID 01/29/22 03/24/22 03/23/22 History digestive enzymes 1 tab PO DAILY 01/29/22 03/24/22 03/23/22 History isosorbide mononitrate 30 mg 60 mg PO DAILY 01/29/22 03/24/22 03/23/22 History tablet,extended release 24 hr lisinopril 20 1 tab PO BID 01/29/22 03/24/22 03/23/22 History mg-hydrochlorothiazide 12.5 mg tablet omega 9-ttw-hyv-fish oil 300 1 cap PO DAILY 01/29/22 03/24/22 03/23/22 History mg-1,000 mg capsule (Fish Oil) famotidine 20 mg tablet 20 mg PO BID #60 tabs 02/04/22 03/24/22 03/23/22 Rx diltiazem HCl 180 mg capsule,24 180 mg PO DAILY #90 caps 02/24/22 03/24/22 03/23/22 Rx hr,extended release metoprolol tartrate 75 mg tablet 75 mg PO BID #180 tabs 02/25/22 03/24/22 03/23/22 Rx oxygen 2L bnc continuous. #1 ea 02/26/22 03/24/22 Unknown Rx apixaban 5 mg tablet (Eliquis) 5 mg PO BID 03/24/22 03/24/22 03/23/22 History sitagliptin 50 mg-metformin ER 1 tab PO BID 03/24/22 03/24/22 03/23/22 History 1,000 mg tablet,extended release 24h mp (Janumet XR) Allergies Allergy/AdvReac Type Severity Reaction Status Date / Time No Known Allergies Allergy Verified 03/24/22 09:58 PFSH Acute PFSH: Medical History Acquired deformity of both feet foot drop and pronation with callous Acquired short leg syndrome on right Anxiety Breast nodule right Chronic diarrhea Chronic instability of knee, right knee Degenerative arthritis of knee right Dermoid cyst of left lower extremity Dyslipidemia Essential (primary) hypertension Gait disorder Gastro-esophageal reflux disease without esophagitis History of post-polio syndrome Hyponatremia Osteoporosis Tricuspid valve regurgitation, nonrheumatic Type 2 diabetes mellitus without complications Vitamin B12 deficiency Surgical History H/O: hysterectomy (~1991) History of hip surgery History of right hip replacement Hx of cholecystectomy (~2001) Hx of colonoscopy (~2012) Family History Father Cancer lung Mother Diabetes Stroke Hypertension Social History Smoking and tobacco status: never smoked Alcohol intake: never Adopted: No Lives independently: Yes Household members: none Housing: House Marital status: / Number of children: 3 Highest education level completed: High School Graduate service: No Current occupational status: retired Pets and animals: Yes History of recent travel: No Current gender identity: Female Vitals/I&O/Wt Last Vital Signs Temp 98.0 F 03/24/22 08:59 Pulse 88 03/24/22 13:55 Resp 21 H 03/24/22 13:55 BP 136/88 03/24/22 13:45 Pulse Ox 89 L 03/24/22 13:55 O2 Del Method 03/24/22 08:59 03/23/22 03/24/22 03/24/22 22:59 06:59 14:59 Intake Total 9.417 / 9.417 Balance 9.417 / 9.417 Physical Exam Narrative: General exam is no no acute distress. She is on a diltiazem drip and heart rate is approximately 110. HEENT: Atraumatic normocephalic. Pupils equally round. Oropharynx clear. Neck is supple no lymphadenopathy or thyromegaly Cardiovascular irregular, irregular with accelerated rate. No murmur. Lungs clear no wheezing or crackles Abdomen is soft with positive bowel sounds. No obvious organomegaly exams deferred Extremities no cyanosis clubbing or edema, cap refill brisk Skin no rash Neuro no obvious focal deficits. Data 03/24/22 09:42 03/24/22 09:42 Other Labs: Calcium normal Magnesium slightly low at 1.6 BNP elevated at 4462 LFTs normal TSH 4.2 Coronavirus PCR negative. Influenza A and B-. Chest x-ray demonstrates some bilateral effusions, cardiomegaly EKG demonstrates A. fib with RVR, normal axis, nonspecific ST-T wave changes, initial rate of 171 Previous echocardiogram in 2019 demonstrated an EF of 66%, 1/4 diastolic dysfunction, moderate TR. Stress testing at that time was unremarkable. Micro: Microbiology 03/24/22 09:56 Blood Culture - Preliminary Blood SPECIMEN COLLECTED 03/24/22 09:56 Blood Culture - Preliminary Blood SPECIMEN COLLECTED A&P Assessment and plan (1) Atrial fibrillation with rapid ventricular response: Patient presents with atrial fibrillation with rapid ventricular rate. She is already anticoagulated with Eliquis. She does have evidence of congestive heart failure, likely secondary to her tachyarrhythmia. She is already on diltiazem, and metoprolol We will go ahead and increase her metoprolol to 100 mg twice daily Check echocardiogram Continue diltiazem drip and try to transition to diltiazem 60 mg every 6 hours I think her tachyarrhythmia is likely been going on for some time. Family is concerned it has been going on for approximately 2 months. She has been getting elevated heart rates at home, taken at rest by her and her family. Event monitor, I believe placed on February 05 demonstrates average heart rate of 132. TSH has been checked and normal Magnesium slightly low Will obtain cardiology consultation With increase in metoprolol, diltiazem will hold her li sinopril/hydrochlorothiazide and Imdur currently (2) Congestive heart failure: No obvious evidence of fluid overload on exam, however chest x-ray is consistent with this. Control rate Reevaluate fluid status, may require dose of diuretic. However, I think with rate control likely her heart failure symptoms of shortness of breath will improve (3) Type 2 diabetes mellitus without complications: Sliding scale insulin Qualifiers: Diabetes mellitus nursing home insulin use: without predatory animal exterminator use Qualified Code(s): E11.9 - Type 2 diabetes mellitus without complications Plan Multiple other medical problems as outlined by past medical history Full code currently Eliquis will suffice for DVT prophylaxis Attestations Medical Necessity Statement*: Currently placed on observation for atrial fibr illation with rapid ventricular rate. Potential exists for rapid control of heart rate, and discharge in less than 2 midnights. Coding Level of Care Code Acute [employer] Special[facility] Diagnoses Atrial fibrillation with rapid ventricular response I48.91 Congestive heart failure I50.9 Type 2 diabetes mellitus without complications E11.9 Diabetes mellitus nursing home insulin use: without nursing home use
--- NOTE | 2022-03-24 14:26 | USCV_ITS ---
Wing Harmonith Age: 81 Gender: F : 1940 Exam Date: 03/24/2022 17:33 Ordering Phys: Phillip Mirza MD Technologist: Corwin Smith Exam Location: [facility] – [place] Indication: Atrial fibrillation BP: 131 / 78 HR: 87 Rhythm: Atrial fibrillation Technical Quality: Adequate MEASUREMENTS (Male / Female) Normal Values 2D ECHO LV Diastolic Diameter PLAX 4.3 cm 4.2 - 5.9 / 3.9 - 5.3 cm LV Systolic Diameter PLAX 2.6 cm IVS Diastolic Thickness 0.5 cm 0.6 - 1.0 / 0.6 - 0.9 cm IVS Systolic Thickness 0.7 cm LVPW Diastolic Thickness 0.8 cm 0.6 - 1.0 / 0.6 - 0.9 cm LVPW Systolic Thickness 0.8 cm LVOT Diameter 2.0 cm LV Ejection Fraction 2D Teich 69.7 % LV Ejection Fraction MOD 2C 69.6 % LV Ejection Fraction 2C AL 69.6 % LA Diameter 4.0 cm LA Width 3.9 cm LA Height 5.4 cm RA Width 4.3 cm RA Height 5.3 cm Aorta at Sinotubular Diameter 2.1 cm IVC Diameter 1.6 cm M-MODE Aortic Annulus Diameter 2.3 cm LA Ao Ratio MM 1.8 MV E Point Septal Separation 0.6 cm DOPPLER AV Peak Velocity 163.7 cm/s LVOT Peak Velocity 72.0 cm/s AV Area Cont Eq vti 1.4 cm squared AV Area Cont Eq pk 1.4 cm squared MV Peak Velocity 170.0 cm/s MV Area PHT 7.6 cm squared MV E' Velocity 65.5 cm/s Mitral E to MV E' Ratio 9.9 Mitral E to LV E' Lateral Ratio 10.6 Mitral E to LV E' Septal Ratio 9.4 TR Peak Velocity 253.6 cm/s TR Peak Gradient 25.7 mmHg TR Mean Velocity 206.6 cm/s TR Mean Gradient 17.8 mmHg TR Velocity Time Integral 72.6 cm Right Atrial Pressure 3.0 mmHg Pulmonary Artery Systolic Pressu 28.7 mmHg PV Peak Velocity 74.0 cm/s RV Acceleration Time 0.1 s RV Ejection Time 0.3 s RV AcT/ET 0.2 FINDINGS Left Ventricle Normal left ventricular size, systolic function and wall thickness, with no regional wall motion abnormalities. Left ventricular ejection fraction is estimated at 70 %. Rhythm precludes evaluation of diastolic function. Right Ventricle Normal right ventricular size and systolic function. Right ventricular systolic pressure 28.7 mmHg. Right Atrium Normal right atrial size. Left Atrium Moderately increased left atrial size. Mitral Valve Moderate mitral annular calcification. Moderately thickened mitral valve. No mitral valve stenosis. Moderate mitral valve regurgitation. Aortic Valve Mildly thickened trileaflet aortic valve. Aortic valve sclerosis without stenosis. No aortic valve regurgitation. Tricuspid Valve Structurally normal tricuspid valve. [id number] tricuspid valve regurgitation. Pulmonic Valve Pulmonic valve not well visualized. No pulmonary valve stenosis. Trace pulmonary valve regurgitation. Pericardium No pericardial effusion. Aorta Normal size aortic root and proximal ascending aorta. IVC Normal IVC dimension with >50% respiratory change of the inferior vena cava. CONCLUSIONS 1. Normal left ventricular size, systolic function and wall thickness, with no regional wall motion abnormalities. Left ventricular ejection fraction is estimated at 70 %. 2. Normal right ventricular size and systolic function. 3. [id number] tricuspid valve regurgitation. 4. Moderate mitral valve regurgitation. 5. When compared to study dated 08/26/2018, there is moderate mitral valve regurgitation now. Arpita Hinojosa MD (Electronically Signed) Final Date: 24 March 2022 21:39 S
[2022-03-24] MEDS: acetaminophen 325 mg Tablet 650 MG PO (14:35)
[2022-03-24] MEDS: dilTIAZem 60 mg Tablet PO ×2 (15:50→22:01)
[2022-03-24] MEDS: magnesium sulfate premix 2 GM/50 ML PIGGYBACK IV (15:51)
[2022-03-24 17:01] LABS: Glucose Point of Care 148 mg/dL (70-110)
[2022-03-24] MEDS: BuSPIRONE 10 mg Tablet 15 MG PO (17:10)
[2022-03-24] MEDS: famotidine 20 mg Tablet PO (17:11)
[2022-03-24] MEDS: apixaban 5 mg Tablet PO (17:11)
--- NOTE | 2022-03-24 18:01 | PM.CONSULT ---
Providers/Reason For Consult Consulting Physician/Specialty*: Dr. Hinojosa, Cardiology Reason for Consult*: Atrial fibrillation with RVR Attending Physician: Phillip Mirza MD Primary Care Provider: Sariah Nichole MD History of Present Illness History of Present Illness Mary Harmon is a 81 year old female with past medical history of hypertension, hyperlipidemia, GERD, diabetes, anxiety, Gait disorder/post -polio syndrome.? She was diagnosed with atrial fibrillation and rapid ventricular rate on recent event monitor. HR on average n 130's. Patient complains of worsening SOB, orthopnea and tachycardia at home. BP running low at PCP's office. She also complains of band like feeling in lower chest. No abdominal pain, nausea/vomiting, diarrhea/constipation. She is on metoprolol and diltiazem at home. On admission, she was started on cardizem drip and HR at the time of evaluation in 80's. Influenza and COVID-19 antigen testing negative. Normal TSH. NT ProBNP 4462. Her SOB has improved. No leg swelling. EKG showed atrial fibrillation with RVR and non specific ST-T wave changes. Review of Systems General: Reports: 10 or more systems reviewed and unremarkable except in HPI and below Const: Reports: fatigue and malaise; Denies: fever(s) or chills Eyes: Denies: change in vision ENMT: Denies: throat pain Card: Reports: palpitations, dyspnea on exertion and orthopnea; Denies: chest pain or edema Resp: Reports: dyspnea GI: Denies: abdominal pain, nausea, vomiting, hematochezia or melena : Denies: flank pain Musc: Denies: neck pain or extremity swelling Skin/Breast: Denies: rash Neuro: Denies: headache(s), dizziness or vertigo Psych: Denies: anxiety or depression Endo: Denies: polyuria Artis/Lymph: Denies: easy bruising, easy bleeding, petechiae or purpura All/Imm: Denies: urticaria, tongue swelling or facial swelling Medications/Allergies Home Medications Medication Instructions Recorded Confirmed Last Taken Type lancets 30 gauge (2-In-1 Lancet #100 ea 05/06/19 03/24/22 Unknown Rx Device) Right knee brace hinged #1 ea 11/18/19 03/24/22 Unknown Rx Right leg brace straps #1 ea 11/18/19 03/24/22 Unknown Rx Straps for leg splints #1 ea 05/22/20 03/24/22 Unknown Rx Diabetic shoes with build up on #1 ea 05/24/20 03/24/22 Unknown Rx right for heighth calcium carbonate 600 mg calcium 600 mg PO BID@0809/17/20 03/24/22 03/23/22 History (1,500 mg) tablet (Calcium) pyridoxine (vitamin B6) 50 mg 50 mg PO DAILY@08 09/17/20 03/24/22 03/23/22 History tablet blood sugar diagnostic #100 ea 03/27/21 03/24/22 Unknown Rx cyanocobalamin (vitamin B-12) 1,000 mcg IM Q30D #1 mL 05/16/21 03/24/22 Unknown Rx 1,000 mcg/mL injection solution New left leg brace for shoe #1 ea 08/22/21 03/24/22 Unknown Rx nitroglycerin 0.4 mg sublingual See Rx Instructions .Route 08/22/21 03/24/22 Unknown Rx tablet .COMPLEX #25 tabs blood-glucose meter #1 ea 12/04/21 03/24/22 Unknown Rx new left AFO and repairs to right #1 ea 12/04/21 03/24/22 Unknown Rx AFO buspirone 15 mg tablet 15 mg PO BID 01/29/22 03/24/22 03/23/22 History digestive enzymes 1 tab PO DAILY 01/29/22 03/24/22 03/23/22 History isosorbide mononitrate 30 mg 60 mg PO DAILY 01/29/22 03/24/22 03/23/22 History tablet,extended release 24 hr lisinopril 20 1 tab PO BID 01/29/22 03/24/22 03/23/22 History mg-hydrochlorothiazide 12.5 mg tablet omega 6-sra-bvq-fish oil 300 1 cap PO DAILY 01/29/22 03/24/22 03/23/22 History mg-1,000 mg capsule (Fish Oil) famotidine 20 mg tablet 20 mg PO BID #60 tabs 02/04/22 03/24/22 03/23/22 Rx diltiazem HCl 180 mg capsule,24 180 mg PO DAILY #90 caps 02/24/22 03/24/22 03/23/22 Rx hr,extended release metoprolol tartrate 75 mg tablet 75 mg PO BID #180 tabs 02/25/22 03/24/22 03/23/22 Rx oxygen 2L bnc continuous. #1 ea 02/26/22 03/24/22 Unknown Rx apixaban 5 mg tablet (Eliquis) 5 mg PO BID 03/24/22 03/24/22 03/23/22 History sitagliptin 50 mg-metformin ER 1 tab PO BID 03/24/22 03/24/22 03/23/22 History 1,000 mg tablet,extended release 24h mp (Janumet XR) Allergies Allergy/AdvReac Type Severity Reaction Status Date / Time No Known Allergies Allergy Verified 03/24/22 09:58 Current Medications Generic Name Dose Route Start Last Admin Trade Name Freq PRN Reason Stop Dose Admin Acetaminophen 650 mg 03/24/22 14:10 03/24/22 14:35 Acetaminophen 325 Mg Tablet PO 650 mg Q6H PRN Administration Mild/Mod Pain Or Temp >/= 101 Apixaban 5 mg 03/24/22 18:00 03/24/22 17:11 Apixaban 5 Mg Tablet PO 5 mg BID NANDO Administration Buspirone HCl 15 mg 03/24/22 18:00 03/24/22 17:10 Buspirone 10 Mg Tablet PO 15 mg BID NANDO Administration Diltiazem HCl 60 mg 03/24/22 14:15 03/24/22 15:50 Diltiazem 60 Mg Tablet PO 60 mg Q6H NANDO Administration Famotidine 20 mg 03/24/22 18:00 03/24/22 17:11 Famotidine 20 Mg Tablet PO 20 mg BID NANDO Administration Diltiazem HCl 100 mg/ Sodium 100 mls @ 0 mls/hr 03/24/22 09:15 03/24/22 11:37 Chloride IV 7.5 mg/hr .Q0M NANDO 7.5 mls/hr Titration Protocol Per Protocol Insulin Human Lispro 0 unit 03/24/22 18:00 03/24/22 17:03 Insulin Lispro 100 Unit/1 Ml SUBCUT Not Given WM&BEDTIME NANDO Protocol PFSH Acute PFSH: Medical History Acquired deformity of both feet foot drop and pronation with callous Acquired short leg syndrome on right Anxiety Breast nodule right Chronic diarrhea Chronic instability of knee, right knee Degenerative arthritis of knee right Dermoid cyst of left lower extremity Dyslipidemia Essential (primary) hypertension Gait disorder Gastro-esophageal reflux disease without esophagitis History of post-polio syndrome Hyponatremia Osteoporosis Tricuspid valve regurgitation, nonrheumatic Type 2 diabetes mellitus without complications Vitamin B12 deficiency Surgical History H/O: hysterectomy (~1991) History of hip surgery History of right hip replacement Hx of cholecystectomy (~2001) Hx of colonoscopy (~2012) Family History Father Cancer lung Mother Diabetes Stroke Hypertension Social History Smoking and tobacco status: never smoked Alcohol intake: never Adopted: No Lives independently: Yes Household members: none Housing: House Marital status: / Number of children: 3 Highest education level completed: High School Graduate service: No Current occupational status: retired Pets and animals: Yes History of recent travel: No Current gender identity: Female Vitals/I&O/Wt Last Vital Signs Temp 98.0 F 03/24/22 14:27 Pulse 86 03/24/22 16:45 Resp 24 H 03/24/22 16:45 BP 131/78 03/24/22 16:45 Pulse Ox 96 03/24/22 16:45 O2 Del Method 03/24/22 14:51 O2 Flow Rate 2 03/24/22 14:39 03/24/22 03/24/22 03/24/22 06:59 14:59 22:59 Intake Total 9.417 / 9.417 Balance 9.417 / 9.417 Weight last 48 hrs Weight 125 lb 9 oz Physical Exam Narrative: GENERAL: Averagely built and averagely nourished in no acute distress HEENT: Extraocular movement intact. No pallor or icterus. NECK: central trachea, No carotid bruit. CARDIOVASCULAR SYSTEM: S1-S2 regular. No murmur or gallops. RESPIRATORY SYSTEM: Chest clear to auscultation. No wheezes rhonchi or rubs heard. No use of accessory muscles. ABDOMEN: Soft, nontender and nondistended. Normal bowel sounds present. EXTREMITIES: No cyanosis or edema. No signs of chronic venous insufficiency. FRUIT TRIMMER: Patient is alert oriented ?3. No focal neurological deficits. SKIN: Normal turgor and temperature. PSYCH: Normal insight and judgment. Data 03/24/22 09:42 03/24/22 09:42 Micro: Microbiology 03/24/22 09:56 Blood Culture - Preliminary Blood SPECIMEN COLLECTED 03/24/22 09:56 Blood Culture - Preliminary Blood SPECIMEN COLLECTED Other data: CXR (03/24/22) CLINICAL CORRELATION SUGGESTED FOR POSSIBLE EARLY PULMONARY VASCULAR CONGESTION WITH BILATERAL PLEURAL EFFUSIONS. POSSIBLE RIGHT BASAL ATELECTASIS VERSUS EARLY INFILTRATE. TTE (08/26/2018) CONCLUSIONS Normal left ventricular size and systolic function, EF 66 %. No regional wall motion abnormalities. Grade I/IV diastolic dysfunction (abnormal relaxation filling pattern), normal to mildly elevated filling pressures. Minimally thickened aortic and mitral valves Moderate tricuspid valve regurgitation. Trace to mild mitral and trace of aortic valve regurgitation. Estimated pulmonary artery peak systolic pressure of 28 mmHg There is no pericardial effusion. There are no intracardiac masses. No previous study is available for comparison ? Lexiscan sestamibi MPI (08/26/2018) IMPRESSIONS #1. Unremarkable myocardial perfusion imaging #2. Normal LV ejection fraction of 87% #3. LV wall motion analysis revealing no gross wall motion abnormalities. #4. Normal LV volume. No significant coronary ischemia, based on the above findings A&P Assessment and plan (1) Atrial fibrillation with rapid ventricular response: continue cardizem gtt -dose of metoprolol tartrate increased to 100 mg BID -on diltiazem 60 mg Q 6 hr -continue to monitor BP and HR closely. (2) Congestive heart failure: lasix 20 mg IV x1 -f/u on echo (3) Essential (primary) hypertension: (4) Dyslipidemia: (5) Type 2 diabetes mellitus without complications: Qualifiers: Diabetes mellitus correction insulin use: without intermodal owner operator truck driver use Qualified Code(s): E11.9 - Type 2 diabetes mellitus without complications (6) Gastro-esophageal reflux disease without esophagitis: Plan Moderate TR Consult Attestations Time Spent in Patient Care: 16 - 35 minutes Coding Level of Care Code Acute Traffic Controller Cable for g Fwd Diagnoses Atrial fibrillation with rapid ventricular response I48.91 Congestive heart failure I50.9 Essential (primary) hypertension I10 Dyslipidemia E78.5 Type 2 diabetes mellitus without complications E11.9 Diabetes mellitus intermodal owner operator truck driver insulin use: without correction use Gastro-esophageal reflux disease without esophagitis K21.9
[2022-03-24] MEDS: metoprolol tartrate 50 mg Tablet 100 MG PO (22:01)
[2022-03-24] MEDS: FUROsemide 10 mg/mL SDV 2mL 20 MG IVP (22:01)
[2022-03-24] MEDS: insulin lispro 100 unit/1 mL SUBCUT (22:02)
--- NOTE | 2022-03-24 22:20 | PC.NURSE ---
Pts Cardizem titrated from 7.5mg/hr down to 5mg/hr at approximately 2215.
--- NOTE | 2022-03-24 22:45 | PC.NURSE ---
Pts heart rate 68 to 78 bpm. Cardizem gtt stopped MD notified. Will cont to monitor.
[2022-03-25] VITALS (141 sets, daily range): BP systolic 117–134; BP diastolic 70–76; PULSE 0–136; RESP 16–38; O2SAT 81–98
[2022-03-25] MEDS: dilTIAZem 60 mg Tablet PO (03:21)
[2022-03-25 03:25] LABS: Basophils % 0.3 %; Eosinophils # 0.1 10^3/uL (0.0-0.8); Hematocrit 31.9 % (37.0-47.0); Hemoglobin 10.1 g/dL (11.5-15.3); Lymphocytes # 1.2 10^3/uL (0.8-4.8); Lymphocytes % 19.7 %; Mean Corpuscular HGB Conc 31.7 g/dL (30.0-36.0); Mean Corpuscular Hemoglobin 26.4 pg (28.0-34.0); Mean Corpuscular Volume 83.3 fl (81-99); Mean Platelet Volume 10.6 fL (7.4-10.4); Monocytes # 0.5 10^3/uL (0.2-0.9); Monocytes % 9.1 %; Neutrophils # 4.15 10^3/uL (1.8-7.7); Neutrophils % 69.7 %; Nucleated Red Blood Cells % 0 %; Platelet Count 202 10^3/cmm (130-400); Red Blood Count 3.83 10^6/uL (4.1-5.3); Red Cell Distribution Width 16.4 % (12.1-15.1)
[2022-03-25 03:51] LABS: Alanine Aminotransferase 10 U/L (0-33); Albumin Level 3.3 g/dL (3.5-5.2); Alkaline Phosphatase 70 U/L (35-105); Anion Gap 14.1 (5-19); Aspartate Amino Transferase 15 U/L (0-32); Blood Urea Nitrogen 11 mg/dL (8-23); Calcium 9.3 mg/dL (8.5-10.5); Carbon Dioxide 26 mmol/L (22-29); Chloride 98 mmol/L (98-107); Globulin 2.9 g/dL (1.3-4.6); Glucose 116 mg/dL (65-115); Magnesium 1.7 mg/dL (1.7-2.3); Osmolality Calculated 280 mOsm/kg (285-295); Potassium 3.1 mmol/L (3.5-5.1); Sodium 135 mmol/L (136-145); Total Bilirubin 0.4 mg/dL (0.15-1.2); Total Protein 6.2 g/dL (6.6-8.7)
[2022-03-25 06:59] LABS: Glucose Point of Care 152 mg/dL (70-110)
[2022-03-25 07:00] LABS: Glucose Point of Care 126 mg/dL (70-110)
[2022-03-25] MEDS: BuSPIRONE 10 mg Tablet 15 MG PO ×2 (08:21→17:30)
[2022-03-25] MEDS: famotidine 20 mg Tablet PO ×2 (08:25→17:33)
[2022-03-25] MEDS: apixaban 5 mg Tablet PO ×2 (08:26→17:31)
[2022-03-25] MEDS: dilTIAZem ER (24HR) 240 mg Capsule PO (08:26)
[2022-03-25] MEDS: potassium chloride ER 20 mEq Tablet 40 MEQ PO ×3 (08:27→18:34)
[2022-03-25] MEDS: metoprolol tartrate 50 mg Tablet 100 MG PO ×2 (08:28→21:00)
--- NOTE | 2022-03-25 10:40 | PC.CHAP ---
Pastoral Care Encounter/Spiritual Assessment Type of Contact [] Declined yard laborer visit [] Patient/Family/Request visit [] Outpatient visit [] Follow-up visit [] Physician referral [] Code/Alert x[] Routine visit [] Staff referral [] Actively dying [] Patient sleeping [] Family support [] [] Out of room [] Palliative care [] [] Receiving care in room [] Pre-surgical visit [] Trauma [] Long length of stay [] ICU visit [] Other: Relational/Emotional Strength x [x] Patient feels connected with others/family/visitors/staff [] Distress [] Loneliness/isolation [] Abandonment Spirituality of Patient ] There are Spiritual issues to be addressed Subway Train Driver Interventions [x] Prayer [x] Active listening []x Non-anxious presence [] Spiritual/emotional support [] Crisis/trauma care [] Spiritual counseling [] Bereavement support [] Provided bereavement packet [] Provided Bible/devotional materials [] Provided toy/stuffed animal, coloring book to patient or family member [] Provided Communion [] Anointing/[place] [] Salvation [] Completed spiritual assessment [] Other: Impact on Illness or Injury [] Angry [] Fearful [] Anxious [] Often cries [] Exhaustion [] Unable to work [] Unable to attend denominational [] Unable to walk/stand [] Unable to read [] Unable to drive [] Unable to eat/drink [] Unable to sleep [] Unable to be with family [] Patient intubated [] Other: Summary Time spent with patient 20 min
[2022-03-25] MEDS: insulin lispro 100 unit/1 mL SUBCUT (12:01)
[2022-03-25 12:40] LABS: Glucose Point of Care 148 mg/dL (70-110)
--- NOTE | 2022-03-25 13:02 | PM.PN ---
Subjective Subjective: Mary reports she feels little bit better. Still significantly short of breath, when she gets up and moves. I changed her to long-acting Cardizem this morning heart rate is holding around 100. Medications: Reviewed: Yes Vitals/I&O/Wt Last Vital Signs Temp 98 F 03/24/22 23:23 Pulse 112 H 03/25/22 12:20 Resp 21 H 03/25/22 08:35 BP 134/70 03/25/22 12:20 Pulse Ox 95 03/25/22 12:20 O2 Del Method 03/25/22 04:00 O2 Flow Rate 2 03/25/22 04:00 03/24/22 03/25/22 03/25/22 22:59 06:59 14:59 Intake Total 150 / 159.417 190.583 / 350.000 240 / 240 Output Total 100 / 100 Balance 150 / 159.417 90.583 / 250.000 240 / 240 Weight last 48 hrs Weight 56.954 kg Physical Exam Narrative: General exam is no no acute distress. Heart rate approximately 100 Neck is supple no lymphadenopathy or thyromegaly Cardiovascular irregular, irregular with controlled rate. I do not auscultate a murmur. Lungs clear no wheezing or crackles Abdomen is soft with positive bowel sounds. No obvious organomegaly exams deferred Extremities no cyanosis clubbing or edema, cap refill brisk Skin no rash Data 03/25/22 03:05 03/25/22 03:05 Micro: Microbiology 03/24/22 09:56 Blood Culture - Preliminary Blood NEGATIVE TO DATE 03/24/22 09:56 Blood Culture - Preliminary Blood NEGATIVE TO DATE A&P Assessment and plan (1) Atrial fibrillation with rapid ventricular response: Currently under better control. Now on oral medication metoprolol 100 mg twice daily and Cardizem extended release 240 mg daily TSH is normal Magnesium has been supplemented as was slightly low on admission. (2) Congestive heart failure: Still with some symptomatology of heart failure Lasix 40 mg IV x1 Mild hypokalemia has developed. Supplement today. Echo demonstrates preserved EF. Moderate mitral regurgitation is noted. (3) Type 2 diabetes mellitus without complications: Continue sliding scale Qualifiers: Diabetes mellitus certified physical therapist assistant insulin use: without snf use Qualified Code(s): E11.9 - Type 2 diabetes mellitus without complications Plan Multiple other medical problems as listed in past medical history Full code currently Eliquis for DVT prophylaxis. Attestations Medical Necessity Statement*: Needs continued hospital stay for treatment of acute congestive heart failure with IV Lasix Coding Level of Care Code Acute Compliance Auditor for g Fwd Diagnoses Atrial fibrillation with rapid ventricular response I48.91 Congestive heart failure I50.9 Type 2 diabetes mellitus without complications E11.9 Diabetes mellitus snf insulin use: without certified physical therapist assistant use
[2022-03-25] MEDS: FUROsemide 10 mg/mL SDV 4mL 40 MG IVP (13:50)
[2022-03-25 17:08] LABS: Glucose Point of Care 159 mg/dL (70-110)
--- NOTE | 2022-03-25 18:36 | P.PN_ITS ---
Subjective Subjective: Patient c/p SOB with exertion. UO not documented. She was taken off cardizem gtt last night Medications: Reviewed: Yes Vitals/I&O/Wt Last Vital Signs Temp 98 F 03/24/22 23:23 Pulse 100 03/25/22 18:15 Resp 31 H 03/25/22 18:15 BP 134/70 03/25/22 18:15 Pulse Ox 97 03/25/22 18:15 O2 Del Method 03/25/22 04:00 O2 Flow Rate 2 03/25/22 04:00 03/25/22 03/25/22 03/25/22 06:59 14:59 22:59 Intake Total 190.583 / 350.000 240 / 240 480 / 720 Output Total 100 / 100 Balance 90.583 / 250.000 240 / 240 480 / 720 Weight last 48 hrs Weight 125 lb 9 oz Physical Exam Narrative: GENERAL: Averagely built and averagely nourished in no acute distress HEENT: Extraocular movement intact. No pallor or icterus. NECK: central trachea, No carotid bruit. CARDIOVASCULAR SYSTEM: S1-S2 regular. No murmur or gallops. RESPIRATORY SYSTEM: Chest clear to auscultation. No wheezes rhonchi or rubs heard. No use of accessory muscles. ABDOMEN: Soft, nontender and nondistended. Normal bowel sounds present. EXTREMITIES: No cyanosis or edema. No signs of chronic venous insufficiency. 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 No focal neurological deficits. SKIN: Normal turgor and temperature. PSYCH: Normal insight and judgment. Data 03/25/22 03:05 03/25/22 03:05 Micro: Microbiology 03/24/22 09:56 Blood Culture - Preliminary Blood NEGATIVE TO DATE 03/24/22 09:56 Blood Culture - Preliminary Blood NEGATIVE TO DATE A&P Assessment and plan (1) Atrial fibrillation with rapid ventricular response: continue cardizem gtt -dose of metoprolol tartrate increased to 100 mg BID -changed to diltiazem 240 mg this morning -continue to monitor BP and HR closely. (2) Congestive heart failure: lasix 40 mg IV x1 this afternoon -Normal LV function on echo (3) Essential (primary) hypertension: (4) Dyslipidemia: (5) Type 2 diabetes mellitus without complications: Qualifiers: Diabetes mellitus shelter insulin use: without shelter use Qualified Code(s): E11.9 - Type 2 diabetes mellitus without complications (6) Gastro-esophageal reflux disease without esophagitis: Plan Moderate MR Hypokalemia: replaced Attestations Medical Necessity Statement*: needs hospital stay for CHF and A. fib with RVR Time Spent in Patient Care: 16 - 35 minutes Coding Level of Care Code Acute Air Quality Technician for Chg Fwd Diagnoses Atrial fibrillation with rapid ventricular response I48.91 Congestive heart failure I50.9 Essential (primary) hypertension I10 Dyslipidemia E78.5 Type 2 diabetes mellitus without complications E11.9 Diabetes mellitus shelter insulin use: without shelter use Gastro-esophageal reflux disease without esophagitis K21.9
[2022-03-25] MEDS: dilTIAZem 30 mg Tablet PO (19:44)
[2022-03-25 20:48] LABS: Glucose Point of Care 132 mg/dL (70-110)
[2022-03-25] MEDS: ondansetron 2 mg/ML SDV 2 mL 4 MG IVP (23:34)
[2022-03-26] VITALS (61 sets, daily range): BP systolic 96–135; BP diastolic 63–103; PULSE 62–135; RESP 16–30; TEMP 35.9–36.9; O2SAT 91–99
[2022-03-26 05:05] LABS: Basophils % 0.3 %; Eosinophils % 0.3 %; Hematocrit 33.6 % (37.0-47.0); Hemoglobin 10.4 g/dL (11.5-15.3); Lymphocytes # 1.4 10^3/uL (0.8-4.8); Lymphocytes % 23.1 %; Mean Corpuscular Hemoglobin 26.1 pg (28.0-34.0); Mean Corpuscular Volume 84.2 fl (81-99); Mean Platelet Volume 10.3 fL (7.4-10.4); Monocytes # 0.5 10^3/uL (0.2-0.9); Monocytes % 8.4 %; Neutrophils # 3.99 10^3/uL (1.8-7.7); Neutrophils % 67.6 %; Nucleated Red Blood Cells % 0 %; Platelet Count 240 10^3/cmm (130-400); Red Blood Count 3.99 10^6/uL (4.1-5.3); Red Cell Distribution Width 16.5 % (12.1-15.1); White Blood Count 5.9 10^3/uL (4.0-10.0)
[2022-03-26 05:24] LABS: Anion Gap 14.4 (5-19); Blood Urea Nitrogen 11 mg/dL (8-23); Calcium 9.8 mg/dL (8.5-10.5); Carbon Dioxide 26 mmol/L (22-29); Chloride 101 mmol/L (98-107); Glucose 144 mg/dL (65-115); Magnesium 1.6 mg/dL (1.7-2.3); Osmolality Calculated 284 mOsm/kg (285-295); Potassium 5.4 mmol/L (3.5-5.1); Sodium 136 mmol/L (136-145)
[2022-03-26 06:31] LABS: Glucose Point of Care 138 mg/dL (70-110)
--- NOTE | 2022-03-26 07:19 | P.PN_ITS ---
Subjective Subjective: confusion last night . recieved lasix 40 mg IV x 1 and cardizem 10 mg IV x 1 Medications: Reviewed: Yes Vitals/I&O/Wt Last Vital Signs Temp 98 F 03/26/22 04:00 Pulse 90 03/26/22 04:00 Resp 19 H 03/26/22 04:00 BP 126/80 03/26/22 04:00 Pulse Ox 93 03/26/22 04:00 O2 Del Method 03/26/22 04:00 O2 Flow Rate 2 03/26/22 04:00 03/25/22 03/26/22 03/26/22 22:59 06:59 14:59 Intake Total 960 / 1200 50 / 1250 Output Total 100 / 100 100 / 200 Balance 860 / 1100 -50 / 1050 Weight last 48 hrs Weight 125 lb 9 oz Physical Exam Narrative: GENERAL: Averagely built and averagely nourished in no acute distress HEENT: Extraocular movement intact. No pallor or icterus. NECK: central trachea, No carotid bruit. CARDIOVASCULAR SYSTEM: S1-S2 irregular. No murmur or gallops. RESPIRATORY SYSTEM: Chest clear to auscultation except at b/l bases. Absent breath sounds L>R; No wheezes rhonchi or rubs heard. No use of accessory mu scles. ABDOMEN: Soft, nontender and nondistended. Normal bowel sounds present. EXTREMITIES: No cyanosis or edema. No signs of chronic venous insufficiency. ELECTROMECHANICAL TECHNICIAN: Patient is alert oriented ?3. No focal neurological deficits. SKIN: Normal turgor and temperature. PSYCH: Normal insight and judgment. Data 03/26/22 04:50 03/26/22 04:50 Micro: Microbiology 03/24/22 09:56 Blood Culture - Preliminary Blood NEGATIVE TO DATE 03/24/22 09:56 Blood Culture - Preliminary Blood NEGATIVE TO DATE A&P Assessment and plan (1) Atrial fibrillation with rapid ventricular response: -dose of metoprolol tartrate increased to 100 mg BID -changed to diltiazem 300 mg this morning -continue to monitor BP and HR closely. -continue Eliquis (2) Congestive heart failure: lasix 40 mg IV x1 this afternoon -Normal LV function on echo (3) Essential (primary) hypertension: (4) Dyslipidemia: (5) Type 2 diabetes mellitus without complications: Qualifiers: Diabetes mellitus assistant terminal manager insulin use: without assistant terminal manager use Qualified Code(s): E11.9 - Type 2 diabetes mellitus without complications (6) Gastro-esophageal reflux disease without esophagitis: Plan Moderate MR Hyperkalemia Chronic diarrhea Attestations Medical Necessity Statement*: needs hospital stay for CHF and A. fib with RVR Time Spent in Patient Care: 16 - 35 minutes Coding Level of Care Code Acute Natural Fabricator for Chg Fwd Diagnoses Atrial fibrillation with rapid ventricular response I48.91 Congestive heart failure I50.9 Essential (primary) hypertension I10 Dyslipidemia E78.5 Type 2 diabetes mellitus without complications E11.9 Diabetes mellitus group home insulin use: without group home use Gastro-esophageal reflux disease without esophagitis K21.9
[2022-03-26] MEDS: apixaban 5 mg Tablet PO ×2 (08:52→17:11)
[2022-03-26] MEDS: LORazepam 0.5 mg Tablet 0.25 MG PO (08:53)
[2022-03-26] MEDS: dilTIAZem ER (24HR) 300 mg Capsule PO (08:53)
[2022-03-26] MEDS: metoprolol tartrate 50 mg Tablet 100 MG PO ×2 (08:54→20:15)
[2022-03-26] MEDS: famotidine 20 mg Tablet PO ×2 (08:55→17:12)
[2022-03-26] MEDS: BuSPIRONE 10 mg Tablet 15 MG PO ×2 (08:56→17:11)
[2022-03-26] MEDS: magnesium sulfate premix 2 GM/50 ML PIGGYBACK IV (08:57)
[2022-03-26] MEDS: FUROsemide 10 mg/mL SDV 4mL 40 MG IVP (08:57)
[2022-03-26 09:42] LABS: Vitamin B12 294 pg/mL (232-1245)
--- NOTE | 2022-03-26 10:30 | P.PN_ITS ---
Subjective Subjective: Mary woke up today confused. There is been concerned about delirium. Family was called, and have reoriented her. She was significantly anxious. Heart rate has been higher. She has been taking the medication as prescribed here. Medications: Reviewed: Yes Vitals/I&O/Wt Last Vital Signs Temp 98.1 F 03/26/22 08:20 Pulse 135 H 03/26/22 08:20 Resp 20 H 03/26/22 08:20 BP 134/103 03/26/22 08:20 Pulse Ox 92 03/26/22 08:20 O2 Del Method 03/26/22 08:20 O2 Flow Rate 2 03/26/22 04:00 03/25/22 03/26/22 03/26/22 22:59 06:59 14:59 Intake Total 960 / 1200 50 / 1250 Output Total 100 / 100 100 / 200 Balance 860 / 1100 -50 / 1050 Weight last 48 hrs Weight 56.954 kg Physical Exam Narrative: General exam anxious. Heart rate elevated. Neck is supple no lymphadenopathy or thyromegaly Cardiovascular irregular, irregular with accelerated rate Lungs clear no wheezing or crackles Abdomen is soft with positive bowel sounds. No obvious organomegaly exams deferred Extremities no cyanosis clubbing or edema, cap refill brisk Skin no rash Data 03/26/22 04:50 03/26/22 04:50 Micro: Microbiology 03/24/22 09:56 Blood Culture - Preliminary Blood NEGATIVE TO DATE 03/24/22 09:56 Blood Culture - Preliminary Blood NEGATIVE TO DATE A&P Assessment and plan (1) Atrial fibrillation with rapid ventricular response: Heart rate is increased, not under good control this morning. Did have some elevated rates yesterday afternoon as well. Diltiazem was increased to 300 mg, metoprolol continued at 100 mg twice daily. I given extra dose of p.o. Cardizem yesterday. Some of her response today may be secondary to delirium. Ativan was given and she seems calmer now but heart rate elevation persists Diltiazem 10 mg IV now x1 TSH is normal Supplement magnesium, slightly low Discussed briefly with cardiology (2) Congestive heart failure: Still with some symptomatology of heart failure Repeat dose of 40 mg of Lasix this morning Echo demonstrates preserved EF. Moderate mitral regurgitation is noted. (3) Type 2 diabetes mellitus without complications: Continue sliding scale Qualifiers: Diabetes mellitus moth exterminator insulin use: without moth exterminator use Qualified Code(s): E11.9 - Type 2 diabetes mellitus without complications Plan Delirium. She seemed to have tolerated Ativan without worsening confusion. Will give this as needed as she has underlying history of anxiety and is on buspirone. If Ativan seems to worsen her in any way Haldol or Abilify could be used. Multiple other medical problems as listed in past medical history Full code currently Eliquis for DVT prophylaxis. Attestations Medical Necessity Statement*: Needs continued hospital stay for adjustment of medication secondary to atrial fibrillation with rapid ventricular rate. Coding Level of Care Code Acute Pharmacy Retail Support Specialist for [facility] F[facility] Diagnoses Atrial fibrillation with rapid ventricular response I48.91 Congestive heart failure I50.9 Type 2 diabetes mellitus without complications E11.9 Diabetes mellitus long-term insulin use: without moth exterminator use
[2022-03-26] MEDS: dilTIAZem 5 mg/mL SDV 5 mL 10 MG IVP (11:33)
[2022-03-26 13:37] LABS: Glucose Point of Care 136 mg/dL (70-110)
[2022-03-26] MEDS: insulin lispro 100 unit/1 mL SUBCUT (17:12)
[2022-03-26 17:33] LABS: Glucose Point of Care 160 mg/dL (70-110)
[2022-03-26 20:10] LABS: Glucose Point of Care 124 mg/dL (70-110)
[2022-03-27] VITALS (12 sets, daily range): BP systolic 110–133; BP diastolic 61–93; PULSE 63–133; RESP 17–26; TEMP 36.4–37.1; O2SAT 96–98
[2022-03-27 01:46] LABS: Basophils % 0.3 %; Eosinophils # 0.1 10^3/uL (0.0-0.8); Hematocrit 32.9 % (37.0-47.0); Hemoglobin 10.1 g/dL (11.5-15.3); Lymphocytes # 1.5 10^3/uL (0.8-4.8); Lymphocytes % 18.7 %; Mean Corpuscular HGB Conc 30.7 g/dL (30.0-36.0); Mean Corpuscular Hemoglobin 26.2 pg (28.0-34.0); Mean Corpuscular Volume 85.5 fl (81-99); Mean Platelet Volume 10.4 fL (7.4-10.4); Monocytes # 0.8 10^3/uL (0.2-0.9); Monocytes % 9.7 %; Neutrophils # 5.59 10^3/uL (1.8-7.7); Nucleated Red Blood Cells % 0 %; Platelet Count 251 10^3/cmm (130-400); Red Blood Count 3.85 10^6/uL (4.1-5.3); Red Cell Distribution Width 16.8 % (12.1-15.1)
[2022-03-27] MEDS: LORazepam 0.5 mg Tablet 0.25 MG PO (01:50)
--- NOTE | 2022-03-27 01:52 | PC.NURSE ---
Patient reports difficulty breathing. Patient SpO2 at 96%. Lungs CTA. Heart rate controlled 80s to mid 90s. Discussed anxiety with patient and granddaughter along with use of Ativan. Both verbalized understanding and agreed to give it a try . Ativan administered as ordered and documented. Will continue to monitor.
[2022-03-27 02:08] LABS: Anion Gap 13.9 (5-19); Blood Urea Nitrogen 16 mg/dL (8-23); Carbon Dioxide 26 mmol/L (22-29); Chloride 98 mmol/L (98-107); Glucose 141 mg/dL (65-115); Osmolality Calculated 280 mOsm/kg (285-295); Potassium 4.9 mmol/L (3.5-5.1); Sodium 133 mmol/L (136-145)
--- NOTE | 2022-03-27 03:20 | PC.NURSE ---
Patient lying back in bed resting with eyes closed. Even, non-labored respirations observed. No distress noted. Will continue to monitor.
[2022-03-27 06:35] LABS: Glucose Point of Care 132 mg/dL (70-110)
[2022-03-27] MEDS: metoprolol tartrate 50 mg Tablet 100 MG PO ×2 (07:45→20:02)
[2022-03-27] MEDS: apixaban 5 mg Tablet PO ×2 (07:46→16:59)
[2022-03-27] MEDS: famotidine 20 mg Tablet PO ×2 (07:46→16:59)
[2022-03-27] MEDS: BuSPIRONE 10 mg Tablet 15 MG PO ×2 (07:46→16:59)
[2022-03-27] MEDS: FUROsemide 10 mg/mL SDV 4mL 40 MG IVP ×2 (07:47→16:48)
[2022-03-27] MEDS: dilTIAZem ER (24HR) 300 mg Capsule PO (07:47)
--- NOTE | 2022-03-27 07:47 | XR_ITS ---
WS: [id number] EXAMINATION: XR chest 1V portable [id number] REASON FOR EXAM: dyspnea, follow up pleural effusions COMPARISON: 03/24/2022 ORDER DATE: 03/27/2022 7:50 AM TECHNIQUE: A single, portable frontal chest x-ray was obtained. X-RAY FINDINGS: There are scattered parenchymal and perihilar granulomatous calcifications. There is a small area of right basal atelectasis/possible infiltrate probably not changed with a slight difference in appea tino related to projection difference. The cardiac and mediastinal outlines are unremarkable with prominent pulmonary vascularity suggested in each perihilar area. There are small bilateral pleural effusions slightly greater on the left. There is calcific aortic change. Degenerative spine changes are present. XR/XR chest 1V portable [id number] IMPRESSION: No significant interval change compared with previous
--- NOTE | 2022-03-27 08:53 | US_ITS ---
WS: [id number] INDICATION: Pleural effusions TECHNIQUE: Ultrasound chest FINDINGS: Small LEFT greater than RIGHT pleural effusions with compressive atelectasis. US/US chest [id number] IMPRESSION: Small LEFT greater than RIGHT pleural effusions.
[2022-03-27] MEDS: dilTIAZem ER (12HR) 60 mg Capsule PO (09:42)
[2022-03-27 11:23] LABS: Glucose Point of Care 149 mg/dL (70-110)
--- NOTE | 2022-03-27 11:36 | P.PN_ITS ---
Subjective Subjective: Mary reports she slept okay. Heart rate is still high. No chest discomfort. Is short of breath when she gets up and around. Medications: Reviewed: Yes Vitals/I&O/Wt Last Vital Signs Temp 98.7 F 03/27/22 11:08 Pulse 97 03/27/22 11:08 Resp 18 03/27/22 11:08 BP 119/83 03/27/22 11:08 Pulse Ox 98 03/27/22 11:08 O2 Del Method 03/27/22 11:08 O2 Flow Rate 2 03/27/22 10:55 03/26/22 03/27/22 03/27/22 22:59 06:59 14:59 Intake Total 720 / 770 480 / 480 Output Total 300 / 300 1100 / 1100 Balance 720 / 770 -300 / 470 -620 / -620 Physical Exam Narrative: General exam. Heart rate around 130 when I saw her this morning. Neck is supple no lymphadenopathy or thyromegaly Cardiovascular irregular, irregular with accelerated rate Lungs clear no wheezing or crackles Abdomen is soft with positive bowel sounds. No obvious organomegaly exams deferred Extremities no cyanosis clubbing or edema, cap refill brisk Skin no rash Data 03/27/22 01:27 03/27/22 01:27 A&P Assessment and plan (1) Atrial fibrillation with rapid ventricular response: Heart rate still elevated. Increase Cardizem to 360 mg daily. Ativan has helped with her anxiety TSH is normal (2) Congestive heart failure: Continuing Lasix 40 mg IV every 24 hours Echo demonstrates preserved EF. Moderate mitral regurgitation is noted. Chest x-ray repeated secondary pleural effusions. The left is slightly greater than the right. However, quantity still small probably 400 cc at most. 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 Resolved. Multiple other medical problems as listed in past medical history Full code currently Eliquis for DVT prophylaxis. Attestations Medical Necessity Statement*: Needs continued hospital stay, adjust medications for better rate control prior to discharge. Coding Level of Care Code Acute Manager Nursing for [facility] Diagnoses Atrial fibrillation with rapid ventricular response I48.91 Congestive heart failure I50.9 Type 2 diabetes mellitus without complications E11.9 Diabetes mellitus fdc insulin use: without fdc use
[2022-03-27] MEDS: insulin lispro 100 unit/1 mL SUBCUT ×2 (12:38→20:02)
--- NOTE | 2022-03-27 14:42 | P.PN_ITS ---
Subjective Subjective: She had a rough night. sound like some anxiety, SOB and A. fib with RVR last night and this morning Medications: Reviewed: Yes Vitals/I&O/Wt Last Vital Signs Temp 98.7 F 03/27/22 11:08 Pulse 80 03/27/22 11:48 Resp 18 03/27/22 11:08 BP 119/83 03/27/22 11:08 Pulse Ox 98 03/27/22 11:08 O2 Del Method 03/27/22 11:08 O2 Flow Rate 2 03/27/22 10:55 03/26/22 03/27/22 03/27/22 22:59 06:59 14:59 Intake Total 720 / 770 960 / 960 Output Total 300 / 300 1100 / 1100 Balance 720 / 770 -300 / 470 -140 / -140 Physical Exam Narrative: GENERAL: Averagely built and averagely nourished in no acute distress HEENT: Extraocular movement intact. No pallor or icterus. NECK: central trachea, No carotid bruit. CARDIOVASCULAR SYSTEM: S1-S2 irregular. No murmur or gallops. RESPIRATORY SYSTEM: Chest clear to auscultation except at b/l bases. Absent breath sounds L>R; No wheezes rhonchi or rubs heard. No use of accessory muscles. ABDOMEN: Soft, nontender and nondistended. Normal bowel sounds present. EXTREMITIES: No cyanosis or edema. No signs of chronic venous insufficiency. 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 No focal neurological deficits. SKIN: Normal turgor and temperature. PSYCH: Normal insight and judgment. Data 03/27/22 01:27 03/27/22 01:27 A&P Assessment and plan (1) Atrial fibrillation with rapid ventricular response: -dose of metoprolol tartrate increased to 100 mg BID -changed to diltiazem 360 mg this morning -continue to monitor BP and HR closely. 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 fib with RVR Time Spent in Patient Care: 16 - 35 minutes Coding Level of Care Code Acute Data Management Manager for [facility]g Fwd Diagnoses Atrial fibrillation with rapid ventricular response I48.91 Congestive heart failure I50.9 Essential (primary) hypertension I10 Dyslipidemia E78.5 Type 2 diabetes mellitus without complications E11.9 Diabetes mellitus fdc insulin use: without fdc use Gastro-esophageal reflux disease without esophagitis K21.9
[2022-03-27 16:56] LABS: Glucose Point of Care 135 mg/dL (70-110)
[2022-03-27 19:56] LABS: Glucose Point of Care 156 mg/dL (70-110)
[2022-03-28] VITALS (7 sets, daily range): BP systolic 92–151; BP diastolic 69–76; PULSE 60–112; RESP 18–34; TEMP 36.6; O2SAT 88–99
[2022-03-28 06:05] LABS: Anion Gap 14.1 (5-19); Blood Urea Nitrogen 15 mg/dL (8-23); Calcium 9.4 mg/dL (8.5-10.5); Carbon Dioxide 29 mmol/L (22-29); Chloride 96 mmol/L (98-107); Glucose 120 mg/dL (65-115); Magnesium 1.7 mg/dL (1.7-2.3); NT Pro B Type Natriuretic Pept 2099 pg/mL (0-450); Osmolality Calculated 282 mOsm/kg (285-295); Potassium 4.1 mmol/L (3.5-5.1); Sodium 135 mmol/L (136-145)
[2022-03-28 06:44] LABS: Glucose Point of Care 123 mg/dL (70-110)
[2022-03-28] MEDS: FUROsemide 10 mg/mL SDV 4mL 40 MG IVP (07:44)
[2022-03-28] MEDS: dilTIAZem ER (24HR) 180 mg Capsule 360 MG PO (07:47)
[2022-03-28] MEDS: apixaban 5 mg Tablet PO (07:48)
[2022-03-28] MEDS: famotidine 20 mg Tablet PO (07:48)
[2022-03-28] MEDS: BuSPIRONE 10 mg Tablet 15 MG PO (07:48)
[2022-03-28] MEDS: metoprolol tartrate 50 mg Tablet 100 MG PO (07:48)
--- NOTE | 2022-03-28 10:07 | P.DS_ITS ---
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 She was found to be in atrial fibrillation with rapid ventricular rate, and have small bilateral pleural effusions. She was placed on a Cardizem drip, and transferred to cardiac stepdown unit. TSH was performed and normal. Metoprolol, and Cardizem were gradually increased over her hospital stay to achieve rate control. A chest x-ray and chest ultrasound were performed later in the course to ensure her pleural effusions had not worsened, and appeared to be small. Thoracentesis was not thought to be indicated. Lasix was added for heart failure symptoms, and dose adjusted during her hospital stay. Echocardiogram was performed which demonstrated preserved EF, moderate mitral valve regurgitation. On March 28, heart rate was under good control it was thought she could transition out of the hospital. She will have follow-up with cardiology as well as her primary care provider. Physical Exam Narrative: General exam no distress Neck is supple Cardiovascular irregular, irregular with 2/6 systolic murmur, rate controlled Lungs clear no wheezing or crackles. Diminished breath sounds at the bases Abdomen is soft nontender with positive bowel sounds Extremities no cyanosis, edema Skin no rash Discharge Data Studies Completed and Pending Completed Studies During Hospitalization Category Date Time Status XR chest 1V portable [id number] Routine Exams 03/27/22 07:47 Completed XR chest 1V portable [id number] Stat Exams 03/24/22 09:11 Completed CV. echo complete* [id number] Routine Ultrasound 03/24/22 14:26 Com[place] chest [id number] Routine Ultrasound 03/27/22 08:53 Completed Pending at discharge Category Date Time Status Blood Culture Stat Lab 03/24/22 09:56 Results Radiology Impressions Chest X-Ray 03/27/22 07:47 IMPRESSION: No significant interval change compared with previous Chest Ultrasound 03/27/22 08:53 IMPRESSION: Small LEFT greater than RIGHT pleural effusions. Laboratory Results WBC 8.0 10^3/uL (4.0-10.0) 03/27/22 01:27 RBC 3.85 10^6/uL (4.1-5.3) L 03/27/22 01:27 Hgb 10.1 g/dL (11.5-15.3) L 03/27/22 01:27 Hct 32.9 % (37.0-47.0) L 03/27/22 01:27 MCV 85.5 fl (81-99) 03/27/22 01:27 MCH 26.2 pg (28.0-34.0) L 03/27/22 01:27 MCHC 30.7 g/dL (30.0-36.0) 03/27/22 01:27 RDW 16.8 % (12.1-15.1) H 03/27/22 01:27 Plt Count 251 10^3/cmm (130-400) 03/27/22 01:27 MPV 10.4 fL (7.4-10.4) 03/27/22 01:27 Neut % (Auto) 70.0 % 03/27/22 01:27 Lymph % (Auto) 18.7 % 03/27/22 01:27 [place] % (Auto) 9.7 % 03/27/22 01:27 Eos % (Auto) 1.0 % 03/27/22 01:27 Baso % (Auto) 0.3 % 03/27/22 01:27 Neut # (Auto) 5.59 10^3/uL (1.8-7.7) 03/27/22 01:27 Lymph # (Auto) 1.5 10^3/uL (0.8-4.8) 03/27/22 01:27 [place] # (Auto) 0.8 10^3/uL (0.2-0.9) 03/27/22 01:27 Eos # (Auto) 0.1 10^3/uL (0.0-0.8) 03/27/22 01:27 Baso # (Auto) 0.0 10^3/uL (0.0-0.1) 03/27/22 01:27 Nucleated RBC % (auto) 0 % 03/27/22 01:27 Nucleated RBCs # 0.0 /100WBC 03/27/22 01:27 Sodium 135 mmol/L (136-145) L 03/28/22 05:22 Potassium 4.1 mmol/L (3.5-5.1) 03/28/22 05:22 Chloride 96 mmol/L (98-107) L 03/28/22 05:22 Carbon Dioxide 29 mmol/L (22-29) 03/28/22 05:22 Anion Gap 14.1 (5-19) 03/28/22 05:22 BUN 15 mg/dL (8-23) 03/28/22 05:22 Creatinine 0.5 mg/dL (0.5-0.9) 03/28/22 05:22 GFR Calculation Not Reportable 03/28/22 05:22 Glucose 120 mg/dL (65-115) H 03/28/22 05:22 POC Glucose 123 mg/dL (70-110) H 03/28/22 06:41 Calculated Osmolality 282 mOsm/kg (285-295) L 03/28/22 05:22 Calcium 9.4 mg/dL (8.5-10.5) 03/28/22 05:22 Magnesium 1.7 mg/dL (1.7-2.3) 03/28/22 05:22 Total Bilirubin 0.4 mg/dL (0.15-1.2) 03/25/22 03:05 AST 15 U/L (0-32) 03/25/22 03:05 ALT 10 U/L (0-33) 03/25/22 03:05 Alkaline Phosphatase 70 U/L (35-105) 03/25/22 03:05 NT-Pro-B Natriuret Pep 2099 pg/mL (0-450) H 03/28/22 05:22 Total Protein 6.2 g/dL (6.6-8.7) L 03/25/22 03:05 Albumin 3.3 g/dL (3.5-5.2) L 03/25/22 03:05 Globulin 2.9 g/dL (1.3-4.6) 03/25/22 03:05 Vitamin B12 294 pg/mL (232-1245) 03/26/22 04:50 TSH 4.20 uIU/mL (0.27-4.20) 03/24/22 09:42 Coronavirus 229E (PCR) Not detected (NOT DETECT) 03/24/22 11:31 Influenza Type A Ag negative (Negative) 03/24/22 11:31 Influenza Type B Ag negative (Negative) 03/24/22 11:31 SARS-CoV-2 (PCR) Not detected (NOT DETECT) 03/24/22 11:31 Vitals Last Vital Signs Temp 97.9 F 03/28/22 08:19 Pulse 112 H 03/28/22 08:19 Resp 34 H 03/28/22 08:19 BP 151/71 03/28/22 08:19 Pulse Ox 95 03/28/22 08:19 O2 Del Method 03/28/22 05:03 O2 Flow Rate 2 03/28/22 05:03 Discharge Plan Discharge Patient Disposition: Home Condition: Stable Prescriptions: New metoprolol tartrate 50 mg Tablet 100 mg PO BID@0900,2100 Qty: 120 0RF diltiazem HCl [DILT-XR] 180 mg Capsule,Ext.Rel 24h Degradable 360 mg PO DAILY Qty: 60 0RF furosemide [Lasix] 40 mg tablet 60 mg PO QAM Qty: 45 0RF potassium chloride 20 mEq tablet extended release 20 meq PO DAILY Qty: 30 0RF Continued (DME) Straps for leg splints See Rx Instructions .Route .MEDSUPPLY Qty: 1 0RF Rx Instructions: As directed (DME) blood sugar diagnostic Strip See Rx Instructions .Route Qty: 100 0RF Rx Instructions: As directed (DME) Right knee brace hinged See Rx Instructions .Route .MEDSUPPLY Qty: 1 0RF Rx Instructions: As directed (DME) Right leg brace straps See Rx Instructions .Route .MEDSUPPLY Qty: 1 0RF Rx Instructions: As directed. Leg brace is not working well as straps are broken. (DME) oxygen 2L bnc continuous. See Rx Instructions .Route .MEDSUPPLY Qty: 1 0RF Rx Instructions: As directed (DME) New left leg brace for shoe See Rx Instructions .Route .MEDSUPPLY Qty: 1 0RF Rx Instructions: As directed (DME) blood-glucose meter Kit See Rx Instructions .Route Qty: 1 0RF Rx Instructions: use daily to check blood sugars (DME) new left AFO and repairs to right AFO See Rx Instructions .Route .MEDSUPPLY Qty: 1 0RF Rx Instructions: As directed (DME) lancets [2-In-1 Lancet Device] 30 gauge misc See Rx Instructions .ROUTE .MEDSUPPLY Qty: 100 2RF Rx Instructions: As directed (DME) Diabetic shoes with build up on right for heighth See Rx Instructions .Route .MEDSUPPLY Qty: 1 0RF Rx Instructions: As directed cyanocobalamin (vitamin B-12) 1,000 mcg/mL solution 1,000 mcg IM Q30D Qty: 1 1RF nitroglycerin 0.4 mg tablet, sublingual See Rx Instructions .ROUTE .COMPLEX Qty: 25 2RF Dose Instruction: DISSOLVE 1 TABLET UNDER THE TONGUE EVERY 5 MINUTES NEEDED FOR CHEST PAIN. DO NOT EXCEED A TOTAL OF 3 DOSES IN 15 MINUTES. Rx Instructions: DISSOLVE 1 TABLET UNDER THE TONGUE EVERY 5 MINUTES NEEDED FOR CHEST PAIN. DO NOT EXCEED A TOTAL OF 3 DOSES IN 15 MINUTES. famotidine 20 mg tablet 20 mg PO BID Qty: 60 5RF Eliquis 5 mg tablet See Rx Instructions .ROUTE .COMPLEX Qty: 60 1RF Dose Instruction: TAKE ONE TABLET BY MOUTH TWICE DAILY FOR atrial fibrillation Rx Instructions: TAKE ONE TABLET BY MOUTH TWICE DAILY FOR atrial fibrillation buspirone 15 mg tablet See Rx Instructions .ROUTE .COMPLEX Qty: 60 6RF Dose Instruction: TAKE ONE TABLET BY MOUTH TWICE DAILY AT 6:00 a.m. AND 5:00 p.m. Rx Instructions: TAKE ONE TABLET BY MOUTH TWICE DAILY AT 6:00 a.m. AND 5:00 p.m. pyridoxine (vitamin B6) 50 mg tablet 50 mg PO DAILY@08 calcium carbonate [Calcium 600] 600 mg calcium (1,500 mg) Tablet 600 mg PO BID@08,20 digestive enzymes Tablet 1 tab PO DAILY omega 4-scp-pzb-fish oil [Fish Oil] 300-1,000 mg Capsule 1 cap PO DAILY Janumet XR 50-1,000 mg tablet, ER multiphase 24 hr 1 tab PO BID Discontinued diltiazem HCl 180 mg capsule,extended release 24 hr 180 mg PO DAILY Qty: 90 3RF metoprolol tartrate 75 mg tablet 75 mg PO BID Qty: 180 3RF lisinopril-hydrochlorothiazide 20-12.5 mg tablet 1 tab PO BID isosorbide mononitrate 30 mg tablet extended release 24 hr 60 mg PO DAILY Discharge Orders: Discharge Order (Routine); Ordered 03/28/22 Ordered By: Phillip Mirza Referrals: Jeanine Solares FNP [Nurse Practitioner] - 1 week (BMP, chest x-ray on follow-up) Sariah Nichole MD [Primary Care Provider] - 4-7 days Discharge Diet: Cardiac Discharge Activity: Increase activity as tolerated Patient Instructions: Opioid Safety Activity Restrictions/Additional Instructions: Take all medicine as prescribed Home health to be arranged Home oxygen evaluation prior to discharge Return for any concerns Follow-up with cardiology 1 week, BMP and chest x-ray and follow-up Follow-up with her primary care provider 3 to 5 days Patient's Health Concerns: Shortness of breath Assessment: Atrial fibrillation with rapid ventricular rate, heart failure Plan of Treatment: Change rate control medicines Add Lasix Goals: No recurrent hospitalizations Discharge Attestations Time Spent in Discharge Care*: greater than 30 min Quality Metrics Clinical Quality Measures [ No reported AMI, CVA or VTE this stay] Coding Level of Care Code Acute Chg FW DC note Diagnoses Atrial fibrillation with rapid ventricular response I48.91 Congestive heart failure I50.9 Essential (primary) hypertension I10 Dyslipidemia E78.5 Type 2 diabetes mellitus without complications E11.9 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
--- NOTE | 2022-03-28 11:11 | P.PN_ITS ---
Subjective Subjective: Tachycardia this morning before meds. overall rate controlled. No significant pauses or bradycardia overnight Medications: Reviewed: Yes Vitals/I&O/Wt Last Vital Signs Temp 97.9 F 03/28/22 08:19 Pulse 93 03/28/22 09:00 Resp 34 H 03/28/22 08:19 BP 151/71 03/28/22 08:19 Pulse Ox 92 03/28/22 10:44 O2 Del Method 03/28/22 09:00 O2 Flow Rate 2 03/28/22 10:44 03/27/22 03/28/22 03/28/22 22:59 06:59 14:59 Intake Total 600 / 1560 240 / 1800 240 / 240 Output Total 1050 / 2150 200 / 2350 Balance -450 / -590 40 / -550 240 / 240 Physical Exam Narrative: GENERAL: Averagely built and averagely nourished in no acute distress HEENT: Extraocular movement intact. No pallor or icterus. NECK: central trachea, No carotid bruit. CARDIOVASCULAR SYSTEM: S1-S2 irregular. No murmur or gallops. RESPIRATORY SYSTEM: Chest clear to auscultation except at b/l bases. Absent breath sounds L>R; No wheezes rhonchi or rubs heard. No use of accessory muscles. ABDOMEN: Soft, nontender and nondistended. Normal bowel sounds present. EXTREMITIES: No cyanosis or edema. No signs of chronic venous insufficiency. 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 No focal neurological deficits. SKIN: Normal turgor and temperature. PSYCH: Normal insight and judgment. Data 03/27/22 01:27 03/28/22 05:22 A&P Assessment and plan (1) Atrial fibrillation with rapid ventricular response: -improved -dose of metoprolol tartrate increased to 100 mg BID -changed to diltiazem 360 mg -continue to monitor BP and HR closely. 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 Qualified Code(s): E11.9 - Type 2 diabetes mellitus without complications (6) Gastro-esophageal reflux disease without esophagitis: Plan Moderate MR Hyperkalemia Chronic diarrhea Attestations Medical Necessity Statement*: stable to be discharged Time Spent in Patient Care: 16 - 35 minutes Coding Level of Care Code Acute Pharmaceutical Sales Representative for Chg Fwd Diagnoses Atrial fibrillation with rapid ventricular response I48.91 Congestive heart failure I50.9 Essential (primary) hypertension I10 Dyslipidemia E78.5 Type 2 diabetes mellitus without complications E11.9 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
[2022-03-28 11:30] LABS: Glucose Point of Care 193 mg/dL (70-110)
[2022-03-28] MEDS: sennosides-docusate Tablet 1 TAB PO (11:39)
--- NOTE | 2022-03-28 15:05 | PC.NURSE ---
Enema administered prior to d/c per patient complaint of constipation. Awaiting discharge pending bowel movement.
== END 2022-03-28 14:00 | disposition home or self-care (01) ==
LOC: ER 13:27 → CSU 13:41
PROVIDERS: Admitting Provider Internal Medicine; Emergency Provider Family Medicine; PCP Family Medicine; Visit Provider Internal Medicine
DX: I48.91 Unspecified atrial fibrillation (principal); J90 Pleural effusion, not elsewhere classified; I11.0 Hypertensive heart disease with heart failure; I50.9 Heart failure, unspecified; E78.5 Hyperlipidemia, unspecified; E11.9 Type 2 diabetes mellitus without complications; K21.9 Gastro-esophageal reflux disease without esophagitis
CPT/HCPCS: 36415; 36416; 71045; 76604; 80048; 80053; 82607; 82962; 83735; 83880; 84443; 85025; 87040; 87635; 87804; 93005; 93306; 94760; 96365; 96367; 96372; 96375; 96376; 97116; 97162; 99285; G0378; J1815; J1940; J2405; J3475; J3490

== ENCOUNTER → 2022-04-02 11:05 | Outpatient (BNVA) | payer MEDICARE, MEDICAID, SELFPAY | PROVIDERS: PCP Family Medicine; Visit Provider Family Medicine | DX: I50.9 Heart failure, unspecified (principal); I48.91 Unspecified atrial fibrillation; Z09 Encounter for follow-up examination after completed treatment for conditions other than malignant neoplasm; Z20.828 Contact with and (suspected) exposure to other viral communicable diseases; E53.8 Deficiency of other specified B group vitamins | CPT/HCPCS: 71046; 80053 ==

== ENCOUNTER → 2022-04-03 08:10 | Outpatient (BNVA) | payer MEDICARE, MEDICAID, SELFPAY | PROVIDERS: PCP Family Medicine; Visit Provider Nurse Practitioner Family | DX: I48.91 Unspecified atrial fibrillation (principal); Z79.01 Long term (current) use of anticoagulants | CPT/HCPCS: 93005; 99213 ==

== ENCOUNTER → 2022-04-25 15:11 | Outpatient (BNVA) | payer MEDICARE, MEDICAID, SELFPAY | PROVIDERS: PCP Family Medicine; Visit Provider Nurse Practitioner Family | DX: M79.89 Other specified soft tissue disorders (principal); M81.8 Other osteoporosis without current pathological fracture; M79.671 Pain in right foot | CPT/HCPCS: 73630 ==

== ENCOUNTER → 2022-06-11 11:54 | Outpatient (BNVA) | payer MEDICARE, MEDICAID, SELFPAY | PROVIDERS: PCP Family Medicine; Visit Provider Internal Medicine Cardiovascular Disease | DX: R06.02 Shortness of breath (principal); I48.91 Unspecified atrial fibrillation; E78.5 Hyperlipidemia, unspecified; E11.9 Type 2 diabetes mellitus without complications; I11.0 Hypertensive heart disease with heart failure; I50.9 Heart failure, unspecified | CPT/HCPCS: 36415; 80048; 83880; 99214 ==

== ENCOUNTER → 2022-08-08 12:49 | Outpatient (BNVA) | payer MEDICARE, MEDICAID, SELFPAY | PROVIDERS: PCP Family Medicine; Visit Provider Family Medicine | DX: E53.8 Deficiency of other specified B group vitamins (principal); I10 Essential (primary) hypertension; E11.9 Type 2 diabetes mellitus without complications; E78.5 Hyperlipidemia, unspecified; D50.8 Other iron deficiency anemias; I48.91 Unspecified atrial fibrillation | CPT/HCPCS: 80053; 80061; 82607; 83036; 83540; 84443; 85025 ==

== ENCOUNTER 2022-10-01 13:39 | Emergency (ER) | payer MEDICARE, MEDICAID, SELFPAY ==
[2022-10-01 13:43] VITALS: BP 118/63; PULSE 71; RESP 16; TEMP 36.5; O2SAT 91; BMI 21.3
[2022-10-01 14:01] VITALS: BP 106/55; PULSE 67; RESP 16; O2SAT 97
--- NOTE | 2022-10-01 14:28 | ECG_ITS ---
[facility] Test Date: 2022-10-01 Pat Name: Mary Harmon Department: Room: Gender: Female Bundle Cutter: : 1940 Requested By: Olman Smallwood Order Number: [id number] Cayla MD: Jose Manuel Gibbs M.D. Measurements Intervals [place] Rate: 54 P: 0 MO: 0 QRS: 38 QRSD: 82 T: 51 QT: 410 QTc: 389 Interpretive Statements ATRIAL FIBRILLATION WITH SLOW VENTRICULAR RESPONSE MODERATE ST DEPRESSION [0.05+ mV ST DEPRESSION] Compared to ECG 03/24/2022 09:14:03 ST (T wave) deviation now present T-wave abnormality no longer present Electronically Signed On 10-01-2022 19:46:55 CDT by Jose Manuel Gibbs M.D. [email or web address] f
--- NOTE | 2022-10-01 14:36 | XRR_ITS ---
PROCEDURE INFORMATION: Exam: XR Chest Exam date and time: 10/01/2022 2:40 PM Age: 82 years old Clinical indication: Cough and dyspnea and shortness of breath; Additional info: Dyspnea/cough.No history of trauma or recent surgery is provided. TECHNIQUE: Imaging protocol: Radiologic exam of the chest. 1image(s) are provided. Views: 1 view. COMPARISON: CR XR chest 2V* [id number] 04/02/2022 11:14 AM FINDINGS: Lungs: There is some subsegmental atelectasis versus post inflammatory fibronodular scarring demonstrated.No lobar consolidation is appreciated. There is some apical fibrous scarring similar. Pleural spaces: There is some minimal costophrenic angle blunting although significantly decreased. No pneumothorax is appreciated. Heart/Mediastinum: The cardiomediastinal silhouette is upper normal in size.This can be seen with central averaging as well as hua enlargement.No cardiac decompensation is appreciated. Diaphragm: There is slight asymmetric right hemidiaphragm elevation. Bones/joints: Osseous alignment is maintained.No interval displaced fracture or dislocation is appreciated. There are chronic degenerative changes of the shoulders demonstrated. Soft tissues: No radiopaque foreign body or subcutaneous emphysema is appreciated. Organs: Cholecystectomy clips are present. Other findings: No other significant interval changes are appreciated. XR/XR chest 1V portable [id number] IMPRESSION: There is overall improved central and basal aeration with nearly resolved consolidative volume loss and pleural fluid. There is some residual at the left lung base. Overall no interval lobar consolidation or cardiac decompensation is appreciated.
--- NOTE | 2022-10-01 14:45 | W.ED.SOB ---
HPI - SOB/Dyspnea General: Chief Complaint: Shortness of Breath/Dyspnea Stated Complaint: SOB Time Seen by Provider: 10/01/22 14:31 Source: patient Mode of arrival: ambulatory History of Present Illness: HPI Narrative: 82-year-old female presents to the emergency room with complaints of shortness of breath. She will states that intermittently she gets brief periods of shortness of breath with activity not associated any chest pain. She has had this for several months intermittently. She has a known history of atrial fibrillation. She is asymptomatic at this time does not have a cough or fever. No satiated sweats or chills. She is on oral anticoagulants and several medicines for rate control continue diltiazem and metoprolol. MD elicited complaint: shortness of breath Timing: intermittent Exacerbating factors: exertion Relieving factors: nothing Associated symptoms: Reports palpitations; Deny abdominal pain, chest congestion, chest pain, cough, diaphoresis, dizziness, extremity pain, fever(s), hemoptysis, lightheadedness, myalgias, nausea, orthopnea, paresthesias, polydipsia, polyuria, rash, sense of impending doom, syncope or vomiting Treatment prior to arrival: none Review of Systems Const: Reports: fatigue; Denies: fever(s), chills, malaise or diaphoresis ENMT: Denies: throat pain, ear or mastoid pain, nasal discharge or nasal congestion Card: Reports: palpitations and irregular heart rhythm; Denies: chest pain, edema, swelling of feet/ankles, lightheadedness, syncope or orthopnea Resp: Reports: dyspnea; Denies: productive cough, non-productive cough, wheezing, hemoptysis or chest congestion GI: Denies: abdominal pain, nausea or vomiting : Denies: flank pain, difficulty voiding, dysuria, urinary frequency or urinary urgency Musc: Denies: neck pain, back pain or extremity pain Skin/Breast: Denies: rash or pruritus Neuro: Denies: dizziness Endo: Denies: polyuria or polydipsia PFS ED PFSH: Medical History Acquired deformity of both feet foot drop and pronation with callous Acquired short leg syndrome on right Anxiety Atrial fibrillation with rapid ventricular response Breast nodule right Chronic diarrhea Chronic instability of knee, right knee Degenerative arthritis of knee right Dermoid cyst of left lower extremity Dyslipidemia Essential (primary) hypertension Gait disorder Gastro-esophageal reflux disease without esophagitis History of post-polio syndrome Hyponatremia Osteoporosis Tricuspid valve regurgitation, nonrheumatic Type 2 diabetes mellitus without complications Vitamin B12 deficiency Surgical History H/O: hysterectomy (~1991) History of hip surgery History of right hip replacement Hx of cholecystectomy (~2001) Hx of colonoscopy (~2012) Family History Father Cancer lung Mother Diabetes Stroke Hypertension Social History Smoking and tobacco status: never smoked Alcohol intake: never Substance/Drug Use: never Adopted: No Lives independently: Yes Household members: none Housing: House Marital status: / Number of children: 3 Highest education level completed: High School Graduate service: No Current occupational status: retired Pets and animals: Yes Current gender identity: Female Physical Exam Const: GENERAL APPEARANCE: cooperative and comfortable ORIENTATION/CONSCIOUSNESS: Yes awake, Yes oriented to person, Yes oriented to place and Yes oriented to time HENMT: COMMON NORMALS: normocephalic, atraumatic and hearing grossly normal bilaterally HEAD & SCALP: normocephalic and atraumatic Resp: COMMON NORMALS: normal respiratory effort, No retractions, No use of accessory muscles and clear to auscultation bilaterally AUSCULTATION: clear to auscultation bilaterally Cardio: COMMON NORMALS: No murmurs present (Cardio) RATE: tachycardic RHYTHM: abnormal rhythm irregularly irregular GI: COMMON NORMALS: Soft to palpation and No hepatosplenomegaly present AUSCULTATION: Yes normoactive bowel sounds PALPATION: Yes Soft to palpation, No Tenderness to palpation present (GI), No Guarding due to palpation present (GI) and Yes No hepatosplenomegaly present Extremity: COMMON NORMALS: normal to inspection, capillary refill normal, no clubbing, cyanosis or edema, no calf tenderness and no pedal edema Neuro: SENSORIUM/ORIENTATION: Yes oriented to person, Yes oriented to place and Yes oriented to time Skin: COMMON NORMALS: no rashes or lesions noted GENERAL SKIN EXAM: no rashes or lesions noted Course Vital Signs: Vital signs: Vital Signs Temperature 97.7 F 10/01/22 13:43 Pulse Rate 57 L 10/01/22 15:06 Respiratory Rate 14 10/01/22 15:06 Blood Pressure 85/49 10/01/22 15:06 Pulse Oximetry 97 10/01/22 15:06 Oxygen Delivery Me thod Nasal Cannula 10/01/22 15:06 Oxygen Flow Rate 2 10/01/22 15:06 MDM - SOB/Dyspnea Medical Decision Making Labs and imaging reviewed no significant findings. EKG shows atrial fibrillation without acute ST changes. No acute findings on chest x-ray. Will discharge patient home set up for Holter monitor 48 hours follow-up with primary care doctor return to the emergency room if she has further problems. Medical Records I reviewed the patient's medical records. Lab Data I reviewed the patient's lab results. 10/01/22 15:00 10/01/22 15:00 Labs/Radiology: Radiology Impressions Chest X-Ray 10/01/22 14:36 IMPRESSION: There is overall improved central and basal aeration with nearly resolved consolidative volume loss and pleural fluid. There is some residual at the left lung base. Overall no interval lobar consolidation or cardiac decompensation is appreciated. Laboratory Results WBC 7.5 10^3/uL (4.0-10.0) 10/01/22 15:00 RBC 4.22 10^6/uL (4.1-5.3) 10/01/22 15:00 Hgb 11.9 g/dL (11.5-15.3) 10/01/22 15:00 Hct 36.6 % (37.0-47.0) L 10/01/22 15:00 MCV 86.7 fl (81-99) 10/01/22 15:00 MCH 28.2 pg (28.0-34.0) 10/01/22 15:00 MCHC 32.5 g/dL (30.0-36.0) 10/01/22 15:00 RDW 13.5 % (12.1-15.1) 10/01/22 15:00 Plt Count 253 10^3/cmm (130-400) 10/01/22 15:00 MPV 10.4 fL (7.4-10.4) 10/01/22 15:00 Neut % (Auto) 73.2 % 10/01/22 15:00 Lymph % (Auto) 18.0 % 10/01/22 15:00 [place] % (Auto) 7.3 % 10/01/22 15:00 Eos % (Auto) 0.7 % 10/01/22 15:00 Baso % (Auto) 0.5 % 10/01/22 15:00 Neut # (Auto) 5.48 10^3/uL (1.8-7.7) 10/01/22 15:00 Lymph # (Auto) 1.4 10^3/uL (0.8-4.8) 10/01/22 15:00 [place] # (Auto) 0.6 10^3/uL (0.2-0.9) 10/01/22 15:00 Eos # (Auto) 0.1 10^3/uL (0.0-0.8) 10/01/22 15:00 Baso # (Auto) 0.0 10^3/uL (0.0-0.1) 10/01/22 15:00 Nucleated RBC % (auto) 0 % 10/01/22 15:00 Nucleated RBCs # 0.0 /100WBC 10/01/22 15:00 Specimen Type Arterial 10/01/22 14:36 Sample Site Brachial, left 10/01/22 14:36 ABG pH 7.45 (7.35-7.45) 10/01/22 14:36 ABG pCO2 29.0 mmHg (35-45) L 10/01/22 14:36 ABG pO2 86.1 mmHg (80.0-100.0) 10/01/22 14:36 ABG HCO3 20.2 mmol/L (22-26) L 10/01/22 14:36 ABG O2 Saturation 97.9 10/01/22 14:36 ABG Base Excess -2.8 mmol/L (-2.0-2.0) L 10/01/22 14:36 Cliff Test Pos 10/01/22 14:36 A-a O2 Gradient 3.2 mmHg (5-10) L 10/01/22 14:36 Hematocrit 35.2 % (37-47) L 10/01/22 14:36 Hgb O2 Saturation 96.1 % (95-100) 10/01/22 14:36 Carboxyhemoglobin 1.1 %THgb (0.4-20.1) 10/01/22 14:36 Methemoglobin 0.8 % (0.4-1.5) 10/01/22 14:36 Total Hemoglobin 11.5 g/dL (12-16) L 10/01/22 14:36 Sodium 137.0 mmol/L (131-143) 10/01/22 14:36 Potassium 4.1 mmol/L (3.5-5.0) 10/01/22 14:36 Glucose 107.0 mg/dL (70-115) 10/01/22 14:36 Ionized Calcium 1.2 mmol/L (1.1-1.4) 10/01/22 14:36 O2 Delivery Device Room air 10/01/22 14:36 FiO2 21.0 % 10/01/22 14:36 Varnishing Unit Tool Setter ID Mehreenro 10/01/22 14:36 Sodium 135 mmol/L (136-145) L 10/01/22 15:00 Potassium 4.0 mmol/L (3.5-5.1) 10/01/22 15:00 Chloride 100 mmol/L (98-107) 10/01/22 15:00 Carbon Dioxide 21 mmol/L (22-29) L 10/01/22 15:00 Anion Gap 18.0 (5-19) 10/01/22 15:00 BUN 13 mg/dL (8-23) 10/01/22 15:00 Creatinine 0.6 mg/dL (0.5-0.9) 10/01/22 15:00 GFR Calculation Not Reportable 10/01/22 15:00 Glucose 110 mg/dL (65-115) 10/01/22 15:00 Calculated Osmolality 281 mOsm/kg (285-295) L 10/01/22 15:00 Calcium 9.7 mg/dL (8.5-10.5) 10/01/22 15:00 Magnesium 1.8 mg/dL (1.7-2.3) 10/01/22 15:00 Total Bilirubin 0.3 mg/dL (0.15-1.2) 10/01/22 15:00 AST 14 U/L (0-32) 10/01/22 15:00 ALT 8 U/L (0-33) 10/01/22 15:00 Alkaline Phosphatase 113 U/L (35-105) H 10/01/22 15:00 NT-Pro-B Natriuret Pep 5306 pg/mL (0-450) H 10/01/22 15:00 Total Protein 7.8 g/dL (6.6-8.7) 10/01/22 15:00 Albumin 4.2 g/dL (3.5-5.2) 10/01/22 15:00 Globulin 3.6 g/dL (1.3-4.6) 10/01/22 15:00 Urine Color Yellow (Yellow) 10/01/22 15:20 Urine Appearance Clear (CLEAR) 10/01/22 15:20 Urine pH 5 (5-7) 10/01/22 15:20 Ur Specific [place] 1.020 (1.005-1.030) 10/01/22 15:20 Urine Protein Neg (Negative) 10/01/22 15:20 Urine Glucose (UA) Norm (Normal) 10/01/22 15:20 Urine Ketones Negative (Negative) 10/01/22 15:20 Urine Blood Neg (Negative) 10/01/22 15:20 Urine Nitrate Negative (Negative) 10/01/22 15:20 Urine Bilirubin Neg (Negative) 10/01/22 15:20 Urine Urobilinogen Norm mg/dL (Negative) 10/01/22 15:20 Ur Leukocyte Esterase Negative (Negative) 10/01/22 15:20 Discharge Plan Discharge Patient Disposition: Home Clinical Impression: Dyspnea, Afib Condition: Stable Prescriptions: No Action (DME) Straps for leg splints See Rx Instructions .Route .MEDSUPPLY Qty: 1 0RF Rx Instructions: As directed (DME) Right knee brace hinged See Rx Instructions .Route .MEDSUPPLY Qty: 1 0RF Rx Instructions: As directed (DME) Right leg brace straps See Rx Instructions .Route .MEDSUPPLY Qty: 1 0RF Rx Instructions: As directed. Leg brace is not working well as straps are broken. (DME) oxygen 2L bnc continuous. See Rx Instructions .Route .MEDSUPPLY Qty: 1 0RF Rx Instructions: As directed (DME) blood-glucose meter Kit See Rx Instructions .Route Qty: 1 0RF Rx Instructions: use daily to check blood sugars (DME) blood sugar diagnostic Strip See Rx Instructions .Route Qty: 50 3RF Rx Instructions: As directed buspirone 15 mg tablet See Rx Instructions .ROUTE .COMPLEX Qty: 60 3RF Dose Instruction: TAKE ONE TABLET BY MOUTH TWICE DAILY AT 6am AND 5pm Rx Instructions: TAKE ONE TABLET BY MOUTH TWICE DAILY AT 6am AND 5pm cyanocobalamin (vitamin B-12) 1,000 mcg/mL solution 1,000 mcg IM Q30D Qty: 1 3RF DILT-XR 180 mg capsule,ext.rel 24h degradable 360 mg PO DAILY Qty: 60 3RF famotidine 20 mg tablet See Rx Instructions .ROUTE .COMPLEX Qty: 60 3RF Dose Instruction: TAKE ONE TABLET BY MOUTH TWICE DAILY Rx Instructions: TAKE ONE TABLET BY MOUTH TWICE DAILY Lasix 40 mg tablet 40 mg PO QAM Qty: 30 3RF metoprolol tartrate 50 mg tablet 100 mg PO BID@0900,2100 Qty: 120 3RF Janumet XR 50-1,000 mg tablet, ER multiphase 24 hr 1 tab PO BID Qty: 60 3RF potassium chloride 20 mEq/15 mL liquid 20 meq PO DAILY 30 Days Qty: 450 2RF cefdinir 300 mg capsule 300 mg PO BID Qty: 20 0RF (DME) New left leg brace for shoe See Rx Instructions .Route .MEDSUPPLY Qty: 1 0RF Rx Instructions: As directed ([facility]) new left AFO and repairs to right AFO See Rx Instructions .Route .MEDSUPPLY Qty: 1 0RF Rx Instructions: As directed ([facility]) lancets [2-In-1 Lancet Device] 30 gauge misc See Rx Instructions .ROUTE .MEDSUPPLY Qty: 100 2RF Rx Instructions: As directed ([facility] [place]) Diabetic shoes with build up on right for heighth See Rx Instructions .Route .MEDSUPPLY Qty: 1 0RF Rx Instructions: As directed nitroglycerin 0.4 mg tablet, sublingual See Rx Instructions .ROUTE .COMPLEX Qty: 25 2RF Dose Instruction: DISSOLVE 1 TABLET UNDER THE TONGUE EVERY 5 MINUTES NEEDED FOR CHEST PAIN. DO NOT EXCEED A TOTAL OF 3 DOSES IN 15 MINUTES. Rx Instructions: DISSOLVE 1 TABLET UNDER THE TONGUE EVERY 5 MINUTES NEEDED FOR CHEST PAIN. DO NOT EXCEED A TOTAL OF 3 DOSES IN 15 MINUTES. Eliquis 5 mg tablet See Rx Instructions .ROUTE .COMPLEX Qty: 60 3RF Dose Instruction: TAKE ONE TABLET BY MOUTH TWICE DAILY FOR ARTRIAL FIBRILLATION Rx Instructions: TAKE ONE TABLET BY MOUTH TWICE DAILY FOR ARTRIAL FIBRILLATION pyridoxine (vitamin B6) 50 mg tablet 50 mg PO DAILY@08 calcium carbonate [Calcium 600] 600 mg calcium (1,500 mg) Tablet 600 mg PO BID@08,20 digestive enzymes Tablet 1 tab PO DAILY omega 9-stw-oxj-fish oil [Fish Oil] 300-1,000 mg Capsule 1 cap PO DAILY Discharge Orders: Discharge ED (Routine); Ordered 10/01/22 Ordered By: Olman Fonseca Referrals: Sariah Nichole MD [Primary Care Provider] - Patient Instructions: Opioid Safety, Pain Management Activity Restrictions/Additional Instructions: You were seen today for shortness of breath. This could be result of intermittent rapid rates with your atrial fibrillation they will set you up for a 48-hour Holter monitor to monitor your heart rate. Coding Level of Care Code ED Firearms Inspector for Reuben Mahoney
[2022-10-01 14:56] LABS: ABG PH Result 7.45 (7.35-7.45); Alveolar-Arterial Oxygen Gradi 3.2 mmHg (5-10); Arterial Blood Gas Hematocrit 35.2 % (37-47); Base Excess ABG -2.8 mmol/L (-2.0-2.0); Blood Gas Allen Test Pos; Blood Gas Sample Type Arterial; Carboxyhemoglobin 1.1 %THgb (0.4-20.1); HCO3 ABG 20.2 mmol/L (22-26); HGB O2 Sat 96.1 % (95-100); Ionized Calcium Level - ABG 1.2 mmol/L (1.1-1.4); Methemoglobin 0.8 % (0.4-1.5); Oxygen Saturation ABG 97.9; PO2 ABG 86.1 mmHg (80.0-100.0); Potassium Level - ABG 4.1 mmol/L (3.5-5.0); Total Hemoglobin 11.5 g/dL (12-16)
[2022-10-01 14:57] LABS: Blood Gas Operator Identificat MONRO; Blood Gas Sample Site Brachial, left; Oxygen Device ROOM AIR
[2022-10-01 15:06] VITALS: BP 85/49; PULSE 57; RESP 14; O2SAT 97
[2022-10-01 15:17] LABS: Basophils % 0.5 %; Eosinophils # 0.1 10^3/uL (0.0-0.8); Eosinophils % 0.7 %; Hematocrit 36.6 % (37.0-47.0); Hemoglobin 11.9 g/dL (11.5-15.3); Lymphocytes # 1.4 10^3/uL (0.8-4.8); Mean Corpuscular HGB Conc 32.5 g/dL (30.0-36.0); Mean Corpuscular Hemoglobin 28.2 pg (28.0-34.0); Mean Corpuscular Volume 86.7 fl (81-99); Mean Platelet Volume 10.4 fL (7.4-10.4); Monocytes # 0.6 10^3/uL (0.2-0.9); Monocytes % 7.3 %; Neutrophils # 5.48 10^3/uL (1.8-7.7); Neutrophils % 73.2 %; Nucleated Red Blood Cells % 0 %; Platelet Count 253 10^3/cmm (130-400); Red Blood Count 4.22 10^6/uL (4.1-5.3); Red Cell Distribution Width 13.5 % (12.1-15.1); White Blood Count 7.5 10^3/uL (4.0-10.0)
[2022-10-01 15:23] LABS: Add Urine Microscopic? NO; Charge for UA Resulting for Rev
[2022-10-01] MEDS: sodium chloride 0.9% 500 ML 999 ML IV (15:30)
[2022-10-01 15:34] LABS: Bilirubin Urine Neg (Negative); Blood Urine Neg (Negative); Glucose Urine UA Norm (Normal); Ketones Urine Negative (Negative); Leukocyte Esterase Urine Negative (Negative); Nitrate Urine Negative (Negative); Protein Urine Neg (Negative); Urine Appearance Clear (CLEAR); Urine Color Yellow (Yellow); Urobilinogen Urine Norm (Negative); pH Urine 5 (5-7)
[2022-10-01 15:43] LABS: Alanine Aminotransferase 8 U/L (0-33); Albumin Level 4.2 g/dL (3.5-5.2); Alkaline Phosphatase 113 U/L (35-105); Aspartate Amino Transferase 14 U/L (0-32); Blood Urea Nitrogen 13 mg/dL (8-23); Calcium 9.7 mg/dL (8.5-10.5); Carbon Dioxide 21 mmol/L (22-29); Chloride 100 mmol/L (98-107); Creatinine Clr Calc Pharmacy 40.6438; Globulin 3.6 g/dL (1.3-4.6); Glucose 110 mg/dL (65-115); Magnesium 1.8 mg/dL (1.7-2.3); NT Pro B Type Natriuretic Pept 5306 pg/mL (0-450); Osmolality Calculated 281 mOsm/kg (285-295); Sodium 135 mmol/L (136-145); Total Bilirubin 0.3 mg/dL (0.15-1.2); Total Protein 7.8 g/dL (6.6-8.7)
--- NOTE | 2022-10-02 08:24 | DCPLANNER ---
Addendum entered by Maureen Earl 10/24/22 10:57: Patient had a follow up appointment scheduled with heart care - patient did attend appointment. Addendum entered by Maureen Earl 10/03/22 08:55: Patient has a follow up appointment scheduled for 10.15.22 at 9:00 at heart care. Original Note: reporting manager had message to schedule a follow up appointment for patient with heart care for a 48 hour halter monitor. This signed order was faxed to heart care, who will call patient with appointment information.
== END 2022-10-01 16:40 | disposition home or self-care (01) ==
PROVIDERS: Emergency Provider Family Medicine; PCP Family Medicine
DX: R06.02 Shortness of breath (principal); I48.91 Unspecified atrial fibrillation; Z79.01 Long term (current) use of anticoagulants
CPT/HCPCS: 36415; 71045; 80051; 80053; 81003; 82330; 82805; 83735; 83880; 85025; 93005; 96360; 99285; J7040

== ENCOUNTER 2022-10-06 06:00 | Outpatient (RCR) | payer MEDICARE, MEDICAID, SELFPAY | END 2022-10-17 23:59 | disposition home or self-care (01) | LOC: APT 06:00 | PROVIDERS: PCP Family Medicine; Visit Provider Nurse Practitioner Family | DX: R26.81 Unsteadiness on feet (principal) | CPT/HCPCS: 97110; 97163 ==

== ENCOUNTER → 2022-10-15 08:54 | Outpatient (BNVA) | payer MEDICARE, MEDICAID, SELFPAY | PROVIDERS: PCP Family Medicine; Visit Provider Internal Medicine Cardiovascular Disease | DX: R55 Syncope and collapse (principal); I48.91 Unspecified atrial fibrillation | CPT/HCPCS: 93225 ==

== ENCOUNTER → 2022-12-17 13:21 | Outpatient (BNVA) | payer MEDICARE, MEDICAID, SELFPAY | PROVIDERS: PCP Internal Medicine; Visit Provider Internal Medicine Cardiovascular Disease | DX: I48.91 Unspecified atrial fibrillation (principal); I10 Essential (primary) hypertension; E78.5 Hyperlipidemia, unspecified; E11.9 Type 2 diabetes mellitus without complications; Z79.01 Long term (current) use of anticoagulants; Z79.84 Long term (current) use of oral hypoglycemic drugs | CPT/HCPCS: 99214 ==

== ENCOUNTER 2023-03-18 05:54 | Observation (INO) | payer MEDICARE, MEDICAID, SELFPAY ==
[2023-03-18] VITALS (23 sets, daily range): BP systolic 123–165; BP diastolic 67–97; PULSE 72–172; RESP 14–28; TEMP 36.3–36.6; O2SAT 92–97; BMI 22.6
--- NOTE | 2023-03-18 06:08 | ECG_ITS ---
[facility] Test Date: 2023-03-18 Pat Name: Mary Harmon Department: Room: Gender: Female Contract Lead: : 1940 Requested By: Olman Smallwood Order Number: [id number] Reading MD: Gwen Oneal M.D. Measurements Intervals [place] Rate: 175 P: 0 [place]: 0 QRS: 42 QRSD: 78 T: 240 QT: 239 QTc: 409 Interpretive Statements ATRIAL FIBRILLATION WITH RAPID VENTRICULAR RESPONSE NONSPECIFIC ST & T-WAVE ABNORMALITY Compared to ECG 10/01/2022 14:28:06 Atrial fibrillation rate is increased Electronically Signed On 03-19-2023 16:46:26 SOFTWARE CONTROLS ENGINEER by Gwen Oneal M.D. [id number]
[2023-03-18 06:17] LABS: Basophils # 0.1 10^3/uL (0.0-0.1); Basophils % 0.7 %; Eosinophils # 0.2 10^3/uL (0.0-0.8); Eosinophils % 2.2 %; Hematocrit 37.1 % (36-47); Lymphocytes # 1.4 10^3/uL (0.8-4.8); Lymphocytes % 20.7 %; Mean Corpuscular HGB Conc 31.3 g/dL (30-55); Mean Corpuscular Hemoglobin 27.4 pg (27-33); Mean Corpuscular Volume 87.7 fl (85-98); Mean Platelet Volume 10.7 fL (7.4-10.4); Monocytes # 0.7 10^3/uL (0.2-0.9); Monocytes % 9.8 %; Neutrophils # 4.45 10^3/uL (1.8-7.7); Neutrophils % 66.3 %; Nucleated Red Blood Cells % 0 %; Platelet Count 255 10^3/cmm (157-399); Red Blood Count 4.23 10^6/uL (3.85-5.65); White Blood Count 6.72 10^3/uL (3.29-11.43)
[2023-03-18] MEDS: dilTIAZem 5 mg/mL SDV 5 mL 20 MG IVP (06:18)
[2023-03-18] MEDS: dilTIAZem 100 MG in sodium chloride 0.9% (add-van) 100 ML IV (06:21)
--- NOTE | 2023-03-18 06:22 | W.ED.ARRPALP ---
HPI - Arrhythmia/Palpitations General: Chief Complaint: Arrhythmia/Palpitations Stated Complaint: SOB Time Seen by Provider: 03/18/23 06:03 Source: patient Mode of arrival: ambulatory History of Present Illness: 82-year-old female presents emergency room with increasing weakness and shortness of breath this morning. She has a known history of atrial fibrillation she is also had a moderate cough. She is on anticoagulation beta-mamadou and calcium channel mamadou. Unfortunately she ran out of her medications 4 days ago and has not been taking them. No active chest pain at this time. MD complaint: rapid heart beat Onset (ago): minute(s) Duration: constant Context: change in medication (Ran out of medications 4 days ago) Arrhythmia history: atrial fibrillation and on anti-coagulants Associated symptoms: Reports cough and short of breath; Deny anxiety, diaphoresis, muscle cramps, nausea, paresthesias, pre-syncope, sense of impending doom, syncope or vomiting Review of Systems Const: Denies: fever(s), chills or diaphoresis Card: Reports: palpitations, irregular heart rhythm and dyspnea on exertion; Denies: chest pain, edema, swelling of feet/ankles, syncope or pre-syncope Resp: Denies: dyspnea GI: Denies: abdominal pain, nausea or vomiting : Denies: dysuria, urinary frequency or urinary urgency Musc: Denies: neck pain, back pain or muscle cramps Skin/Breast: Denies: rash Psych: Denies: anxiety [facility] PFSH: Medical History Depression with anxiety Atrial fibrillation with rapid ventricular response Dermoid cyst of left lower extremity Hyponatremia Vitamin B12 deficiency Anxiety Tricuspid valve regurgitation, nonrheumatic Acquired deformity of both feet foot drop and pronation with callous Acquired short leg syndrome on right Degenerative arthritis of knee right Chronic instability of knee, right knee Osteoporosis Breast nodule right Gait disorder History of post-polio syndrome Type 2 diabetes mellitus without complications Dyslipidemia Essential (primary) hypertension Gastro-esophageal reflux disease without esophagitis Chronic diarrhea Surgical History History of right hip replacement History of hip surgery Hx of cholecystectomy (~2001) H/O: hysterectomy (~1991) Hx of colonoscopy (~2012) Family History Father Cancer lung Mother Diabetes Stroke Hypertension Social History Smoking and tobacco/nicotine status: never used tobacco/nicotine Alcohol intake: never Substance/Drug Use: never Adopted: No Lives independently: Yes Household members: none Housing: House Marital status: / Number of children: 3 Highest education level completed: High School Graduate service: No Current occupational status: retired Pets and animals: Yes Current gender identity: Female Physical Exam Const: GENERAL APPEARANCE: cooperative and comfortable ORIENTATION/CONSCIOUSNESS: Yes awake, Yes oriented to person, Yes oriented to place and Yes oriented to time HENMT: COMMON NORMALS: normocephalic, atraumatic and hearing grossly normal bilaterally HEAD & SCALP: normocephalic and atraumatic Resp: COMMON NORMALS: normal respiratory effort, No retractions and No use of accessory muscles AUSCULTATION: rhonchi Cardio: COMMON NORMALS: No murmurs present (Cardio) RATE: tachycardic RHYTHM: abnormal rhythm irregularly irregular GI: COMMON NORMALS: Soft to palpation and No hepatosplenomegaly present AUSCULTATION: Yes normoactive bowel sounds PALPATION: Yes Soft to palpation, No Tenderness to palpation present (GI), No Guarding due to palpation present (GI) and Yes No hepatosplenomegaly present Extremity: COMMON NORMALS: normal to inspection, capillary refill normal, no clubbing, cyanosis or edema, no calf tenderness and no pedal edema Neuro: SENSORIUM/ORIENTATION: Yes oriented to person, Yes oriented to place and Yes oriented to time Skin: COMMON NORMALS: no rashes or lesions noted GENERAL SKIN EXAM: no rashes or lesions noted Course Vital Signs: Vital signs: Vital Signs Temperature 97.7 F 03/21/23 13:57 Pulse Rate 88 03/21/23 13:57 Respiratory Rate 12 03/21/23 13:57 Blood Pressure 125/68 03/21/23 13:57 Pulse Oximetry 94 03/21/23 13:57 Oxygen Delivery Me thod Room Air 03/21/23 11:30 Oxygen Flow Rate 2 03/19/23 21:09 MDM - Arrhythmia/Palpitations Medical Decision Making Labs and EKG reviewed no acute ST changes. A-fib with RVR initial presentation. She is given her p.o. metoprolol which she had not taken this morning and started on a Cardizem drip. Chest x-ray shows pneumonia. Will admit for A-fib with RVR, chest x-ray shows increased lung markings consistent with congestive heart failure. Was read as possible pneumonia clinically believe she is in heart failure discussed with hospitalist orders written Medical Records I reviewed the patient's medical records. Lab Data I reviewed the patient's lab results. 03/21/23 03:36 03/21/23 03:36 Radiology Impressions Chest X-Ray 03/18/23 15:20 IMPRESSION: New bilateral pulmonary opacities, though greater in the left lower lobe, with associated pleural effusion. Differential diagnosis would include pneumonia or asymmetric pulmonary edema. Pneumonia is favored. ADDENDUM: 03/18/23 1610 COMMENT: THIS REPORT CONTAINS FINDINGS THAT MAY BE CRITICAL TO PATIENT CARE. The exam findings were verbally communicated by me to AR MIRZA via telephone conference at 4:08 PM ARTS ADMINISTRATOR OR MANAGER on 03/18/2023. The findings were acknowledged and understood. Laboratory Results WBC 6.72 10^3/uL (3.29-11.43) 03/18/23 06:06 RBC 4.23 10^6/uL (3.85-5.65) 03/18/23 06:06 Hgb 11.60 g/dL (11.27-16.99) 03/18/23 06:06 Hct 37.1 % (36-47) 03/18/23 06:06 MCV 87.7 fl (85-98) 03/18/23 06:06 MCH 27.4 pg (27-33) 03/18/23 06:06 MCHC 31.3 g/dL (30-55) 03/18/23 06:06 RDW 14.0 % (12.1-15.1) 03/18/23 06:06 Plt Count 255 10^3/cmm (157-399) 03/18/23 06:06 MPV 10.7 fL (7.4-10.4) H 03/18/23 06:06 Neut % (Auto) 66.3 % 03/18/23 06:06 Lymph % (Auto) 20.7 % 03/18/23 06:06 [place] % (Auto) 9.8 % 03/18/23 06:06 Eos % (Auto) 2.2 % 03/18/23 06:06 Baso % (Auto) 0.7 % 03/18/23 06:06 Neut # (Auto) 4.45 10^3/uL (1.8-7.7) 03/18/23 06:06 Lymph # (Auto) 1.4 10^3/uL (0.8-4.8) 03/18/23 06:06 [place] # (Auto) 0.7 10^3/uL (0.2-0.9) 03/18/23 06:06 Eos # (Auto) 0.2 10^3/uL (0.0-0.8) 03/18/23 06:06 Baso # (Auto) 0.1 10^3/uL (0.0-0.1) 03/18/23 06:06 Nucleated RBC % (auto) 0 % 03/18/23 06:06 Nucleated RBCs # 0.0 /100WBC 03/18/23 06:06 Sodium 137 mmol/L (136-145) 03/18/23 06:06 Potassium 4.0 mmol/L (3.5-5.1) 03/18/23 06:06 Chloride 102 mmol/L (98-107) 03/18/23 06:06 Carbon Dioxide 21 mmol/L (22-29) L 03/18/23 06:06 Anion Gap 18.0 (5-19) 03/18/23 06:06 BUN 11 mg/dL (8-23) 03/18/23 06:06 Creatinine 0.6 mg/dL (0.5-0.9) 03/18/23 06:06 GFR Calculation Not Reportable 03/18/23 06:06 Glucose 155 mg/dL (65-115) H 03/18/23 06:06 Calculated Osmolality 287 mOsm/kg (285-295) 03/18/23 06:06 Calcium 9.9 mg/dL (8.5-10.5) 03/18/23 06:06 Magnesium 2.1 mg/dL (1.7-2.3) 03/18/23 06:06 Total Bilirubin 0.5 mg/dL (0.15-1.2) 03/18/23 06:06 AST 13 U/L (0-32) 03/18/23 06:06 ALT 10 U/L (0-33) 03/18/23 06:06 Alkaline Phosphatase 171 U/L (35-105) H 03/18/23 06:06 Troponin T Baseline 10 ng/L (0-10) 03/18/23 06:06 Troponin T 120 Minute 9.23 ng/L (0-10) 03/18/23 08:11 Delta Troponin T -0.77 ABS# (0-10) L 03/18/23 08:11 Troponin T Hi Sens 6Hr 9.42 ng/L (0-10) 03/18/23 13:15 Troponin T Hi Sens 6Hr Delta -0.58 ng/L (0-12) L 03/18/23 13:15 Total Protein 7.4 g/dL (6.6-8.7) 03/18/23 06:06 Albumin 4.2 g/dL (3.5-5.2) 03/18/23 06:06 Globulin 3.2 g/dL (1.3-4.6) 03/18/23 06:06 TSH 5.52 uIU/mL (0.27-4.20) H 03/18/23 06:06 Urine Color Dark yellow (Yellow) 03/18/23 04:44 Urine Appearance Hazy (CLEAR) A 03/18/23 04:44 Urine pH 5 (5-7) 03/18/23 04:44 Ur Specific [place] 1.025 (1.005-1.030) 03/18/23 04:44 Urine Protein Trace (Negative) 03/18/23 04:44 Urine Glucose (UA) Norm (Normal) 03/18/23 04:44 Urine Ketones 1+ (Negative) H 03/18/23 04:44 Urine Blood Neg (Negative) 03/18/23 04:44 Urine Nitrate Negative (Negative) 03/18/23 04:44 Urine Bilirubin 1+ (Negative) H 03/18/23 04:44 Urine Urobilinogen Neg mg/dL (Negative) 03/18/23 04:44 Ur Leukocyte Esterase Trace (Negative) H 03/18/23 04:44 Urine RBC 0-4 /hpf (0-2) H 03/18/23 04:44 Urine WBC 0-4 /hpf (0-5) H 03/18/23 04:44 Ur Squamous Epith Cells 15-25 /hpf (0-5) H 03/18/23 04:44 Calcium Oxalate Crystal 10-15 /hpf H 03/18/23 04:44 Amorphous Sediment Not Reportable 03/18/23 04:44 Urine Bacteria 2+ /hpf (NONE) H 03/18/23 04:44 Hyaline Casts 0-4 /lpf H 03/18/23 04:44 Urine Mucus 1+ /hpf 03/18/23 04:44 All radiology interpretation(s) finalized by discharge Discharge Plan Discharge Patient Disposition: Admitted As Inpatient Admit Provider: Ar Mirza Clinical Impression: Atrial fibrillation with rapid ventricular response, Congestive heart failure Condition: Stable Discharge Diet: Cardiac Discharge Activity: Resume usual activity and Increase activity as tolerated Coding Level of Care Code ED Learning Technologist for Reuben Mahoney
[2023-03-18 06:29] LABS: Alanine Aminotransferase 10 U/L (0-33); Albumin Level 4.2 g/dL (3.5-5.2); Alkaline Phosphatase 171 U/L (35-105); Aspartate Amino Transferase 13 U/L (0-32); Blood Urea Nitrogen 11 mg/dL (8-23); Calcium 9.9 mg/dL (8.5-10.5); Carbon Dioxide 21 mmol/L (22-29); Chloride 102 mmol/L (98-107); Creatinine Clr Calc Pharmacy 41.6933; Globulin 3.2 g/dL (1.3-4.6); Glucose 155 mg/dL (65-115); Osmolality Calculated 287 mOsm/kg (285-295); Sodium 137 mmol/L (136-145); Total Bilirubin 0.5 mg/dL (0.15-1.2); Total Protein 7.4 g/dL (6.6-8.7)
[2023-03-18 06:30] LABS: Troponin(5th) Baseline 10 ng/L (0-10)
[2023-03-18] MEDS: metoprolol succinate ER (24 HR) 25 mg Tablet PO (07:14)
[2023-03-18 07:33] LABS: Add Urine Microscopic? YES; Bilirubin Urine 1+ (Negative); Blood Urine Neg (Negative); Glucose Urine UA Norm (Normal); Ketones Urine 1+ (Negative); Leukocyte Esterase Urine Trace (Negative); Nitrate Urine Negative (Negative); Protein Urine Trace (Negative); Specific Gravity, Urine 1.025 (1.005-1.030); Urine Appearance Hazy (CLEAR); Urine Color Dark Yellow (Yellow); Urobilinogen Urine Neg (Negative); pH Urine 5 (5-7)
[2023-03-18 07:35] LABS: Bacteria Urine 2+ /hpf; RBC Urine 0-4 /hpf (0-2); Squamous Epithelial Cell Urine 15-25 /hpf (0-5); WBC Urine 0-4 /hpf (0-5)
[2023-03-18 07:36] LABS: Add Urine Culture? No; Hyaline Casts Urine 0-4 /lpf; Mucus Urine 1+ /hpf
[2023-03-18] MEDS: dilTIAZem ER (24HR) 180 mg Capsule PO (07:50)
--- NOTE | 2023-03-18 08:08 | ECG_ITS ---
[facility] Test Date: 2023-03-18 Pat Name: Mary Harmon Department: Room: Gender: Female Grain Origination Specialist: : 1940 Requested By: Olman Smallwood Order Number: [id number] Cayla MD: Gwen Oneal M.D. Measurements Intervals [place] Rate: 88 P: 0 CO: 0 QRS: 39 QRSD: 92 T: 41 QT: 363 QTc: 439 Interpretive Statements ATRIAL FIBRILLATION ABNORMAL RHYTHM ECG Compared to ECG 03/18/2023 05:57:37 Atrial fibrillation rate better controlled Electronically Signed On 03-19-2023 17:03:16 CONTENT DIRECTOR by Gwen Oneal M.D. [id number]
[2023-03-18 08:34] LABS: Troponin 5 2HR 9.23 ng/L (0-10)
[2023-03-18 08:38] LABS: Troponin 5 2HR Delta -0.77 ABS# (0-10)
--- NOTE | 2023-03-18 12:08 | ECG_ITS ---
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 Measurements Intervals [place] Rate: 93 P: 0 SC: 0 QRS: 37 QRSD: 76 T: 47 QT: 331 QTc: 413 Interpretive Statements ATRIAL FIBRILLATION ABNORMAL RHYTHM ECG Compared to ECG 03/18/2023 08:42:13 No significant changes Electronically Signed On 03-19-2023 17:00:11 CERAMIC COATER by Gwen Oneal M.D. [id number]
--- NOTE | 2023-03-18 13:58 | PM.HP ---
Documented by User: MYLENE Gallardo [facility] 03/18/23 15:09 Providers/Chief Complaint Admitting Physician: Phillip Mirza MD Primary Care Provider: Nixon Swanson MD Chief Complaint: SOB History of Present Illness Mary Harmon is a 82 year old female who presented to the ED today with SOB and was noted to have a heart rhythm Afib with RVR. Patient denies chest pain at this time and does not appear to have any difficulty breathing. Patient noted to be sitting up on the edge of the bed with daughter at bedside. Mrs. Harmon stated that she has a history of a Afib and is currently taking diltiazem 360mg ER DAILY and Eliqus 5mg PO BID at home but she ran out of the medication about 4 days ago. Patient reports that she can intermittently feel heart palpitations and that she had been feeling them over the last few days but they go away quickly. Overnight patent became more symptomatic with shortness of breath and this is what brought her to the ED. Patient denies any recent medication changes but does complain about her stomach feeling bloated over the last few days, abd distention noted.Patient denies bloody/black tarry stools. Patient received metoprolol 25mg PO and started on Cardizem drip in ED Review of Systems Card: Reports: palpitations and irregular heart rhythm Resp: Reports: dyspnea and chest congestion GI: Reports: bloating Medications/Allergies Home Medications Medication Instructions Recorded Confirmed Last Taken Type lancets 30 gauge (2-In-1 Lancet #100 ea 05/06/19 03/18/23 Unknown Rx Device) Right knee brace hinged #1 ea 11/18/19 03/18/23 Unknown Rx Right leg brace straps #1 ea 11/18/19 03/18/23 Unknown Rx Straps for leg splints #1 ea 05/22/20 03/18/23 Unknown Rx Diabetic shoes with build up on #1 ea 05/24/20 03/18/23 Unknown Rx right for heighth New left leg brace for shoe #1 ea 08/22/21 03/18/23 Unknown Rx new left AFO and repairs to right #1 ea 12/04/21 03/18/23 Unknown Rx AFO digestive enzymes 1 tab PO DAILY 01/29/22 03/18/23 03/14/23 History oxygen 2L bnc continuous. #1 ea 02/26/22 03/18/23 Unknown Rx blood sugar diagnostic #50 ea 08/08/22 03/18/23 Unknown Rx blood-glucose meter #1 ea 08/08/22 03/18/23 Unknown Rx nitroglycerin 0.4 mg sublingual See Rx Instructions .Route 08/21/22 03/18/23 Unknown Rx tablet .COMPLEX #25 tabs cyanocobalamin (vitamin B-12) See Rx Instructions .Route 12/04/22 03/18/23 Unknown Rx 1,000 mcg/mL injection solution .COMPLEX #1 mL diltiazem HCl 180 mg 360 mg (2 x 180 mg) PO DAILY #60 01/22/23 03/18/23 03/14/23 Rx capsule,extended release 24 hr, caps controlled (DILT-XR) apixaban 5 mg tablet (Eliquis) 5 mg PO BID 03/18/23 03/18/23 03/14/23 History duloxetine 20 mg capsule,delayed 20 mg PO DAILY 03/18/23 03/18/23 03/14/23 History release famotidine 20 mg tablet 20 mg PO BID 03/18/23 03/18/23 03/14/23 History furosemide 40 mg tablet 40 mg PO QAM 03/18/23 03/18/23 03/14/23 History metoprolol succinate 25 mg 25 mg PO DAILY 03/18/23 03/18/23 03/14/23 History tablet,extended release 24 hr potassium chloride 20 mEq/15 mL 20 meq PO DAILY 03/18/23 03/18/23 03/14/23 History oral liquid Allergies Allergy/AdvReac Type Severity Reaction Status Date / Time No Known Allergies Allergy Verified 03/18/23 07:32 PFSH Acute PFSH: Medical History (Updated 03/18/23 @ 15:15 by Phillip Mirza MD) Depression with anxiety Atrial fibrillation with rapid ventricular response Dermoid cyst of left lower extremity Hyponatremia Vitamin B12 deficiency Anxiety Tricuspid valve regurgitation, nonrheumatic Acquired deformity of both feet foot drop and pronation with callous Acquired short leg syndrome on right Degenerative arthritis of knee right Chronic instability of knee, right knee Osteoporosis Breast nodule right Gait disorder History of post-polio syndrome Type 2 diabetes mellitus without complications Dyslipidemia Essential (primary) hypertension Gastro-esophageal reflux disease without esophagitis Chronic diarrhea Surgical History History of right hip replacement History of hip surgery Hx of cholecystectomy (~2001) H/O: hysterectomy (~1991) Hx of colonoscopy (~2012) Family History Father Cancer lung Mother Diabetes Stroke Hypertension Social History Smoking and tobacco/nicotine status: never used tobacco/nicotine Alcohol intake: never Substance/Drug Use: never Adopted: No Lives independently: Yes Household members: none Housing: House Marital status: / Number of children: 3 Highest education level completed: High School Graduate service: No Current occupational status: retired Pets and animals: Yes Current gender identity: Female Vitals/I&O/Wt Last Vital Signs Temp 97.3 F L 03/18/23 05:59 Pulse 126 H 03/18/23 11:25 Resp 17 03/18/23 11:25 BP 131/72 03/18/23 11:25 Pulse Ox 94 03/18/23 11:25 O2 Del Method Room Air 03/18/23 11:25 03/17/23 03/18/23 03/18/23 22:59 06:59 14:59 Intake Total 2.667 / 2.667 21.166 / 21.166 Balance 2.667 / 2.667 21.166 / 21.166 Weight last 48 hrs Weight 120 lb Physical Exam Const: COMMON NORMALS: no acute distress and patient oriented x3 GI: INSPECTION: Yes abdominal distension Neuro: COMMON NORMALS: patient oriented x3 and moves all extremities Data 03/18/23 06:06 03/18/23 06:06 A&P Assessment and plan (1) Atrial fibrillation with rapid ventricular response: (2) Congestive heart failure: (3) Type 2 diabetes mellitus without complications: Qualifiers: Diabetes mellitus bed bug exterminator insulin use: without bed bug exterminator use Qualified Code(s): E11.9 - Type 2 diabetes mellitus without complications Coding Level of Care Code Acute Code for [facility] Diagnoses Atrial fibrillation with rapid ventricular response I48.91 Congestive heart failure I50.9 Type 2 diabetes mellitus without complication, without long-term current use of insulin E11.9 Diabetes mellitus senior living insulin use: without senior living use Documented by User: Phillip Mirza MD 03/18/23 15:44 Providers/Chief Complaint Chief Complaint: SOB History of Present Illness Mary Harmon is a 82 year old female who presented to the ED today with SOB and was noted to have a heart rhythm Afib with RVR. Patient denies chest pain at this time and does not appear to have any difficulty breathing. Patient noted to be sitting up on the edge of the bed with daughter at bedside. Mrs. Harmon stated that she has a history of a Afib and is currently taking diltiazem 360mg ER DAILY and Eliqus 5mg PO BID at home but she ran out of the medication about 4 days ago. Patient reports that she can intermittently feel heart palpitations and that she had been feeling them over the last few days but they go away quickly. Overnight patent became more symptomatic with shortness of breath and this is what brought her to the ED. Patient denies any recent medication changes but does complain about her stomach feeling bloated over the last few days, abd distention noted.Patient denies bloody/black tarry stools. Patient received metoprolol 25mg PO and started on Cardizem drip in ED. She denies any recent illness with any fever or cough. She denies any blood in her stool. Review of Systems General: Reports: 10 or more systems reviewed and unremarkable except in HPI and below Medications/Allergies Home Medications Medication Instructions Recorded Confirmed Last Taken Type lancets 30 gauge (2-In-1 Lancet #100 ea 05/06/19 03/18/23 Unknown Rx Device) Right knee brace hinged #1 ea 11/18/19 03/18/23 Unknown Rx Right leg brace straps #1 ea 11/18/19 03/18/23 Unknown Rx Straps for leg splints #1 ea 05/22/20 03/18/23 Unknown Rx Diabetic shoes with build up on #1 ea 05/24/20 03/18/23 Unknown Rx right for heighth New left leg brace for shoe #1 ea 08/22/21 03/18/23 Unknown Rx new left AFO and repairs to right #1 ea 12/04/21 03/18/23 Unknown Rx AFO digestive enzymes 1 tab PO DAILY 01/29/22 03/18/23 03/14/23 History oxygen 2L bnc continuous. #1 ea 02/26/22 03/18/23 Unknown Rx blood sugar diagnostic #50 ea 08/08/22 03/18/23 Unknown Rx blood-glucose meter #1 ea 08/08/22 03/18/23 Unknown Rx nitroglycerin 0.4 mg sublingual See Rx Instructions .Route 08/21/22 03/18/23 Unknown Rx tablet .COMPLEX #25 tabs cyanocobalamin (vitamin B-12) See Rx Instructions .Route 12/04/22 03/18/23 Unknown Rx 1,000 mcg/mL injection solution .COMPLEX #1 mL diltiazem HCl 180 mg 360 mg (2 x 180 mg) PO DAILY #60 01/22/23 03/18/23 03/14/23 Rx capsule,extended release 24 hr, caps controlled (DILT-XR) apixaban 5 mg tablet (Eliquis) 5 mg PO BID 03/18/23 03/18/23 03/14/23 History duloxetine 20 mg capsule,delayed 20 mg PO DAILY 03/18/23 03/18/23 03/14/23 History release famotidine 20 mg tablet 20 mg PO BID 03/18/23 03/18/23 03/14/23 History furosemide 40 mg tablet 40 mg PO QAM 03/18/23 03/18/23 03/14/23 History metoprolol succinate 25 mg 25 mg PO DAILY 03/18/23 03/18/23 03/14/23 History tablet,extended release 24 hr potassium chloride 20 mEq/15 mL 20 meq PO DAILY 03/18/23 03/18/23 03/14/23 History oral liquid Allergies Allergy/AdvReac Type Severity Reaction Status Date / Time No Known Allergies Allergy Verified 03/18/23 07:32 PFSH Acute PFSH: Medical History (Updated 03/18/23 @ 15:15 by Phillip Mirza MD) Depression with anxiety Atrial fibrillation with rapid ventricular response Dermoid cyst of left lower extremity Hyponatremia Vitamin B12 deficiency Anxiety Tricuspid valve regurgitation, nonrheumatic Acquired deformity of both feet foot drop and pronation with callous Acquired short leg syndrome on right Degenerative arthritis of knee right Chronic instability of knee, right knee Osteoporosis Breast nodule right Gait disorder History of post-polio syndrome Type 2 diabetes mellitus without complications Dyslipidemia Essential (primary) hypertension Gastro-esophageal reflux disease without esophagitis Chronic diarrhea Surgical History History of right hip replacement History of hip surgery Hx of cholecystectomy (~2001) H/O: hysterectomy (~1991) Hx of colonoscopy (~2012) Family History Father Cancer lung Mother Diabetes Stroke Hypertension Social History Smoking and tobacco/nicotine status: never used tobacco/nicotine Alcohol intake: never Substance/Drug Use: never Adopted: No Lives independently: Yes Household members: none Housing: House Marital status: / Number of children: 3 Highest education level completed: High School Graduate service: No Current occupational status: retired Pets and animals: Yes Current gender identity: Female Physical Exam Narrative: General exam is white female, conversant in no distress HEENT: Atraumatic. Oropharynx clear Neck is supple Cardiovascular irregular, irregular with accelerated rate. I do not auscultate a murmur. Lungs clear but with diminished breath sounds bilaterally Abdomen is soft. Bowel sounds noted. No obvious organomegaly exam is deferred Extremities no cyanosis clubbing or edema, cap refill brisk Skin no rash Neuro no obvious focal deficits. Data 03/18/23 06:06 03/18/23 06:06 Other Labs: Calcium, albumin, LFTs normal with exception of alk phos with mild elevation of 171 Troponin 10 with repeat of 9.2, 6 hours 9.4 showing no significant change. Urine reviewed and negative. Chest x-ray ordered EKG demonstrates a supraventricular irregular rhythm consistent with atrial fibrillation with a normal axis and nonspecific ST-T wave changes noted mainly inferiorly. A&P Assessment and plan (1) Atrial fibrillation with rapid ventricular response: Patient presents with atrial fibrillation with rapid ventricular rate She is significantly symptomatic, and short of breath In the emergency department she was started on Cardizem drip She recently was not taking her diltiazem for at least 4 days, and possibly metoprolol Continue the Cardizem drip currently Initiate her home medication. Try to increase metoprolol to 25 mg twice daily Telemetry Make sure TSH and magnesium are normal Most recent echocardiogram was March 2022 with an EF of 70% and moderate TR, moderate MR. No reason to repeat echo currently. CBC, CMP tomorrow (2) Congestive heart failure: Patient with evidence of acute diastolic heart failure, likely secondary to fast rhythm Slow rhythm, and see if this resolves. If it does not we will consider IV diuresis (3) Type 2 diabetes mellitus without complications: Consistent carb diet. Monitor sugar. If needed add sliding scale insulin Qualifiers: Diabetes mellitus senior living insulin use: without bed bug exterminator use Qualified Code(s): E11.9 - Type 2 diabetes mellitus without complications Plan Multiple other medical problems as outlined in past medical history Full code currently Apixiban will suffice for DVT prophylaxis Attestations Medical Necessity Statement*: Will need less than 2 midnight stay for evaluation and treatment of A-fib with RVR. Coding Level of Care Code Acute Code for [facility] Diagnoses Atrial fibrillation with rapid ventricular response I48.91 Congestive heart failure I50.9 Type 2 diabetes mellitus without complication, without long-term current use of insulin E11.9 Diabetes mellitus senior living insulin use: without senior living use
[2023-03-18 15:15] LABS: Troponin 5 6HR 9.42 ng/L (0-10)
[2023-03-18 15:16] LABS: Troponin 5 6HR Delta -0.58 ng/L (0-12)
--- NOTE | 2023-03-18 15:20 | XRR_ITS ---
PROCEDURE INFORMATION: Exam: XR Chest Exam date and time: 03/18/2023 4:30 PM Age: 82 years old Clinical indication: Other: Arrythmia; Additional info: Arrhythmia TECHNIQUE: Imaging protocol: Radiologic exam of the chest. Views: 1 view. COMPARISON: CR XR chest 1V portable [id number] 10/01/2022 2:40 PM FINDINGS: Lungs: There is increased opacity in the right mid and the lower left lung as compared to prior study. Changes greatest at the left lung base where there is associated pleural effusion. Consolidation noted within the left lower lobe. Pleural spaces: See Lungs finding. Heart/Mediastinum: Heart size is stable to mildly enlarged, allowing for differences in projection. Bones/joints: No acute osseous abnormality identified. XR/XR chest 1V portable [id number] IMPRESSION: New bilateral pulmonary opacities, though greater in the left lower lobe, with associated pleural effusion. Differential diagnosis would include pneumonia or asymmetric pulmonary edema. Pneumonia is favored.
[2023-03-18 16:05] LABS: Magnesium 2.1 mg/dL (1.7-2.3); Thyroid Stimulating Hormone 5.52 uIU/mL (0.27-4.20)
[2023-03-18] MEDS: FUROsemide 10 mg/mL SDV 2mL 20 MG IVP (16:35)
[2023-03-18] MEDS: apixaban 5 mg Tablet PO (17:20)
[2023-03-18] MEDS: famotidine 20 mg Tablet PO (17:20)
[2023-03-18] MEDS: metoprolol tartrate 25 mg Tablet PO (21:13)
[2023-03-19] VITALS (65 sets, daily range): BP systolic 78–137; BP diastolic 37–73; PULSE 17–154; RESP 9–30; TEMP 36.4–36.8; O2SAT 87–99; BMI 22.6
[2023-03-19] MEDS: zolpidem 5 mg Tablet PO (00:22)
[2023-03-19] MEDS: dilTIAZem 100 MG in sodium chloride 0.9% (add-van) 100 ML IV (01:41)
[2023-03-19 04:44] LABS: Basophils # 0.1 10^3/uL (0.0-0.1); Basophils % 0.8 %; Eosinophils # 0.2 10^3/uL (0.0-0.8); Eosinophils % 2.5 %; Lymphocytes # 1.3 10^3/uL (0.8-4.8); Lymphocytes % 20.2 %; Mean Corpuscular HGB Conc 31.6 g/dL (30-55); Mean Corpuscular Hemoglobin 27.6 pg (27-33); Mean Corpuscular Volume 87.4 fl (85-98); Mean Platelet Volume 10.8 fL (7.4-10.4); Monocytes # 0.5 10^3/uL (0.2-0.9); Monocytes % 8.3 %; Neutrophils # 4.36 10^3/uL (1.8-7.7); Neutrophils % 67.9 %; Nucleated Red Blood Cells % 0 %; Platelet Count 201 10^3/cmm (157-399); Red Blood Count 3.66 10^6/uL (3.85-5.65); Red Cell Distribution Width 13.9 % (12.1-15.1); White Blood Count 6.42 10^3/uL (3.29-11.43)
[2023-03-19 05:01] LABS: Anion Gap 15.4 (5-19); Blood Urea Nitrogen 14 mg/dL (8-23); Calcium 9.3 mg/dL (8.5-10.5); Carbon Dioxide 22 mmol/L (22-29); Chloride 102 mmol/L (98-107); Creatinine Clr Calc Pharmacy 41.6933; Glucose 132 mg/dL (65-115); Osmolality Calculated 284 mOsm/kg (285-295); Potassium 3.4 mmol/L (3.5-5.1); Sodium 136 mmol/L (136-145)
[2023-03-19] MEDS: FUROsemide 40 mg Tablet PO (06:56)
[2023-03-19] MEDS: dilTIAZem ER (24HR) 180 mg Capsule 360 MG PO (08:47)
[2023-03-19] MEDS: famotidine 20 mg Tablet PO ×2 (08:47→18:20)
[2023-03-19] MEDS: duloxetine 20 mg Capsule PO (08:47)
[2023-03-19] MEDS: apixaban 5 mg Tablet PO ×2 (08:47→18:19)
[2023-03-19] MEDS: metoprolol tartrate 25 mg Tablet 50 MG PO (08:47)
[2023-03-19] MEDS: potassium chloride oral liq 20 mEq/15 mL UDC 40 MEQ PO ×2 (08:47→13:12)
[2023-03-19] MEDS: potassium chloride oral liq 20 mEq/15 mL UDC PO (08:48)
--- NOTE | 2023-03-19 09:24 | P.PN_ITS ---
Documented by User: MYLENE Gallardo [facility] 03/19/23 10:00 Subjective 2 Subjective: Patient sitting up on side of bed this am with family at bedside. Patient noted to be on room air and reports that she is having an easier time breathing. She denies chest pain at this time. Heart rhythm noted, patient continues to be in Afib. Mrs. Harmon is currently on Cardizem IV drip 2.5 mg/hr. Medications: Reviewed: Yes Vitals/I&O/Wt Last Vital Signs Temp 98.3 F 03/19/23 07:15 Pulse 112 H 03/19/23 08:00 Resp 21 H 03/19/23 07:15 BP 128/54 03/19/23 07:15 Pulse Ox 94 03/19/23 08:00 O2 Del Method Room Air 03/19/23 08:00 03/18/23 03/19/23 03/19/23 22:59 06:59 14:59 Intake Total 440 / 461.166 70.833 / 531.999 Output Total 200 / 200 0 / 200 Balance 240 / 261.166 70.833 / 331.999 Weight last 48 hrs Weight 120 lb Weight 120 lb Weight 120 lb Physical Exam 2 Narrative: General Exam. Heart Rate around 120 when rounding with her this morning. Neck is supple no lymphadenopathy or thyromegaly. Cardiovascular irregular, with accelerated rate. Crackles noted in left lower lobe this am. Abdomen soft, non-tender with positive bowel sounds. Reports no difficulty urinating, uses BSC. Extremities no cyanosis clubbing or edema. Skin no rash. Data 03/19/23 03:45 03/19/23 03:45 A&P Assessment and plan (1) Afib: Patient presents with Afib, denies shortness of breath this morning on RA. Patient currently on Cardizem drip at 2.5mg/hr, will attempt to wean off today. Will titrate oral medication of metoprolol succunate from 25mg PO daily to home medication dose of 100mg BID as blood pressure tolerates. Continue telemetry. Magnesium noted to be normal range at 2.0. CBC, CMP ordered for tomorrow (2) Congestive heart failure: Patient continues to show evidence of acute diastolic heart failure, likely secondary to fast rhythm. Crackles noted on auscultation to left lower lobe, 40mg po of lasix administered this am. Patient currently on RA and reports easier breathing this morning. (3) Hypokalemia: Patients potassium with this morning labs noted to be slightly low at 3.4. Replaced with 20meq potassium chloride orally this morning will continue this order daily as she will be continuing lasix. Coding Level of Care Code 42590 Diagnoses Afib I48.91 Congestive heart failure I50.9 Hypokalemia E87.6 Time Spent (min) 27 Documented by User: Phillip Mirza MD 03/19/23 11:22 Subjective 2 Subjective: Patient sitting up on side of bed this am with family at bedside. Patient noted to be on room air and reports that she is having an easier time breathing. She denies chest pain at this time. Heart rhythm noted, patient continues to be in Afib. Mrs. Harmon is currently on Cardizem IV drip 2.5 mg/hr. Patient denies any cough. She states her shortness of breath has gone away completely. She denies any recent fevers. Data 03/19/23 03:45 03/19/23 03:45 A&P Assessment and plan (1) Afib: Patient presents with Afib, denies shortness of breath this morning on RA. Patient currently on Cardizem drip at 2.5mg/hr, will attempt to wean off today. She is still on Cardizem which is a potentially toxic medication, given IV, needed to be monitored closely with vital signs. Will titrate oral medication of metoprolol succunate from 25mg PO daily to home medication dose of 100mg BID as blood pressure tolerates. For now increase to 50 mg twice daily, metoprolol Continue telemetry. Magnesium noted to be normal range at 2.0. CBC, CMP ordered for tomorrow Currently anticoagulated with Eliquis (2) Congestive heart failure: (3) Hypokalemia: Patients potassium with this morning labs noted to be slightly low at 3.4. Replaced with 40meq potassium chloride orally this morning will continue this order daily as she will be continuing lasix. Plan Other medical problems as outlined in past medical history Full code Eliquis will suffice for DVT prophylaxis Attestations 2 Medical Necessity Statement*: Needs continued hospitalization for further adjustment of medication for heart rate as this is not controlled currently. Diagnoses Afib I48.91 Congestive heart failure I50.9 Hypokalemia E87.6 Time Spent (min) 27
--- NOTE | 2023-03-19 10:00 | PC.CHAP ---
Pastoral Care Encounter/Spiritual Assessment Type of Contact [] Declined aboriginal ceremonial celebrant visit [] Patient/Family/Request visit [] Outpatient visit [] Follow-up visit [] Physician referral [] Code/Alert [x Routine visit [] Staff referral [] Actively dying [] Patient sleeping [] Family support [] [] Out of room [] Palliative care [] [x] Receiving care in room [] Pre-surgical visit [] Trauma [] Long length of stay [] ICU visit [] Other: Relational/Emotional Strength [x] Patient feels connected with others/family/visitors/staff [] Distress [] Loneliness/isolation [] Abandonment Spirituality of Patient [x] Person of Adriana [] Attends Holiness of their Adriana [x] Believes in Prayer [] Reads Bible or Baptist materials [] There are Spiritual issues to be addressed Nutrition Program Instructor Interventions [x] Prayer [x] Active listening [x] Non-anxious presence [x] Spiritual/emotional support [] Crisis/trauma care [x] Spiritual counseling [] Bereavement support [] Provided bereavement packet [] Provided Bible/devotional materials [] Provided toy/stuffed animal, coloring book to patient or family member [] Provided Communion [] Anointing/[place] [] Salvation [x] Completed spiritual assessment [] Other: Impact on Illness or Injury [] Angry [] Fearful [] Anxious [] Often cries [] Exhaustion [] Unable to work [] Unable to attend zoroastrian [] Unable to walk/stand [] Unable to read [] Unable to drive [] Unable to eat/drink [] Unable to sleep [] Unable to be with family [] Patient intubated [] Other: Summary -May senior under +1 family care checking with doctor as they treat her has a good attitude not sure some rehab before going home Time spent with patient 10 mins
[2023-03-19] MEDS: FUROsemide 10 mg/mL SDV 2mL 20 MG IVP (13:13)
[2023-03-19] MEDS: metoprolol tartrate 25 mg Tablet 12.5 MG PO (13:13)
[2023-03-19] MEDS: ondansetron 2 mg/ML SDV 2 mL 4 MG IVP (15:28)
[2023-03-19] MEDS: acetaminophen 325 mg Tablet 650 MG PO (15:28)
--- NOTE | 2023-03-19 15:52 | PC.NURSE ---
MD notification: Pt noted to have low BP in the 80's systolic and her heart rate has been staying in the 40's and 50's. MAP in the low 60's. Per bladder scan, the pt noted to have only 17ml since the IVP lasix was given. Instructed to continue to monitor and the MD will decrease the dose of metoprolol.
--- NOTE | 2023-03-19 17:53 | PC.NURSE ---
updated concerning heart rate and low BP. Currently, the pt appears to be going back towards normalizing AEB most recent SBP of 115 and MAP is going up as well. Heart rate staying in the 60's. Will continue to follow and pass info on to records officer RN.
--- NOTE | 2023-03-19 21:20 | PC.NURSE ---
Metoprolol not given tonight due to decreased BP and HR. Dr Carlson is aware.
[2023-03-20] VITALS (18 sets, daily range): BP systolic 93–133; BP diastolic 47–77; PULSE 40–106; RESP 16–28; TEMP 36.1–36.9; O2SAT 89–95
--- NOTE | 2023-03-20 01:24 | PC.NURSE ---
Patient refusing to leave BP cuff in place for frequent monitoring. MD is aware of low BP.
--- NOTE | 2023-03-20 03:27 | PC.NURSE ---
Blood pressure and heart rate continue to improve. HR steady mid 60s with last BP 120/62.
[2023-03-20 04:46] LABS: Basophils % 0.3 %; Hematocrit 35.4 % (36-47); Lymphocytes # 1.2 10^3/uL (0.8-4.8); Lymphocytes % 10.4 %; Mean Corpuscular HGB Conc 28.8 g/dL (30-55); Mean Corpuscular Hemoglobin 27.6 pg (27-33); Mean Corpuscular Volume 95.7 fl (85-98); Mean Platelet Volume 10.8 fL (7.4-10.4); Monocytes # 1.1 10^3/uL (0.2-0.9); Monocytes % 9.2 %; Neutrophils # 9.31 10^3/uL (1.8-7.7); Neutrophils % 79.4 %; Nucleated Red Blood Cells % 0 %; Platelet Count 239 10^3/cmm (157-399); Red Cell Distribution Width 14.1 % (12.1-15.1); White Blood Count 11.72 10^3/uL (3.29-11.43)
[2023-03-20 05:12] LABS: Anion Gap 21.1 (5-19); Blood Urea Nitrogen 30 mg/dL (8-23); Calcium 9.3 mg/dL (8.5-10.5); Carbon Dioxide 15 mmol/L (22-29); Chloride 104 mmol/L (98-107); Glucose 182 mg/dL (65-115); Magnesium 2.1 mg/dL (1.7-2.3); Osmolality Calculated 289 mOsm/kg (285-295); Potassium 6.1 mmol/L (3.5-5.1); Sodium 134 mmol/L (136-145)
[2023-03-20] MEDS: FUROsemide 40 mg Tablet PO (05:58)
--- NOTE | 2023-03-20 08:38 | P.PN_ITS ---
Documented by User: MYLENE Gallardo STDSULMA 03/20/23 10:53 Subjective 2 Subjective: Patient lying in bed this morning with family at bedside. She reports that she is feeling lot better today. Denies chest pain, shortness of breath, and fevers. Heart rate noted to be in the 60s at this time. Medications: Reviewed: Yes Vitals/I&O/Wt Last Vital Signs Temp 97.0 F L 03/20/23 08:00 Pulse 80 03/20/23 08:00 Resp 25 H 03/20/23 08:00 BP 122/67 03/20/23 08:00 Pulse Ox 94 03/20/23 08:00 O2 Del Method Room Air 03/20/23 08:00 O2 Flow Rate 2 03/19/23 21:09 03/19/23 03/20/23 03/20/23 22:59 06:59 14:59 Intake Total 220 / 820 560 / 1380 Balance 220 / 820 560 / 1380 Weight last 48 hrs Weight 122 lb 4.8 oz Weight 120 lb Weight 120 lb Physical Exam 2 Narrative: General exam: Alert and calm. No limitations noted, no apparent distress Heart rate irregular, around 70s when rounding this morning. Neck is supple, no lymphadenopathy or thyromegaly. Cardiovascular regular, normal rate. Crackles noted in lower lobes this morning. Abdomen soft, non-tender, with positive bowel sounds. Patient reports he has not had a bowel movement in a few days Reports no difficulty urinating, although has produced little urine since admission despite given Lasix. Extremities no cyanosis, clubbing, or edema. Skin no rash noted. Data 03/20/23 04:33 03/20/23 04:33 Other Labs: Potassium noted to be 6.1 this morning, Kayexalate ordered. Patient reports she has not had much urine output despite Lasix ordered yesterday. Bladder scan completed last night, no signs of urinary retention. Creatinine 1.6 and BUN 30 WBC and neutrophils slightly elevated this morning A&P Assessment and plan (1) Afib: Patient's heart rhythm regular with a normal rate this morning. Cardizem drip is discontinued, taking p.o. Cardizem. Heart rate and BP noted to drop to upper overnight, with increase of metoprolol. Orders to decrease Cardizem p.o. dose and hold metoprolol this morning. Continue telemetry. Potassium noted to be elevated at 6.1, Kayexalate ordered. CBC, CMP ordered for tomorrow. (2) Congestive heart failure: Patient continues to show evidence of acute diastolic heart failure. Crackles noted on auscultation to lower lobes. Despite Lasix being ordered yesterday patient did not have much urine output throughout the day. Patient currently on room air she denies cough, and shortness of breath. (3) Hyperkalemia: (4) Acute kidney injury: Plan Other medical problems as outlined in past medical history. Full code. Eliquis for DVT prophylaxis. Coding Level of Care Code 53231 Diagnoses Afib I48.91 Congestive heart failure I50.9 Hyperkalemia E87.5 Acute kidney injury N17.9 Time Spent (min) 32 Documented by User: Phillip Mirza MD 03/20/23 11:44 Subjective 2 Subjective: Patient lying in bed this morning with family at bedside. She reports that she is feeling lot better today. Denies chest pain, shortness of breath, and fevers. Heart rate noted to be in the 60s at this time. Metoprolol was held last night. She was hypotensive. She feels good this morning. Data 03/20/23 04:33 03/20/23 04:33 A&P Assessment and plan (1) Afib: Patient's heart rhythm regular with a normal rate this morning. Cardizem drip is discontinued, taking p.o. Cardizem. Heart rate and BP noted to drop to upper overnight, with increase of metoprolol. Orders to decrease Cardizem p.o. dose and hold metoprolol this morning. Continue telemetry. Potassium noted to be elevated at 6.1, Kayexalate ordered. IV fluids ordered. CBC, CMP ordered for tomorrow. (2) Congestive heart failure: Compensated currently. Patient currently on room air she denies cough, and shortness of breath. (3) Hyperkalemia: Potassium is elevated. Kayexalate x 1 Repeat BMP at 1130 IV fluids, 500 cc bolus (4) Acute kidney injury: Bolus of IV fluids BMP 1130 Attestations 2 Medical Necessity Statement*: Patient requires further hospitalization for adjustment of p.o. medication, close follow-up of acute kidney injury. Diagnoses Afib I48.91 Congestive heart failure I50.9 Hyperkalemia E87.5 Acute kidney injury N17.9 Time Spent (min) 32
[2023-03-20] MEDS: sodium chloride 0.9% 500 ML 999 ML IV (08:55)
[2023-03-20] MEDS: dilTIAZem ER (24HR) 240 mg Capsule PO (08:55)
[2023-03-20] MEDS: famotidine 20 mg Tablet PO ×2 (08:55→17:37)
[2023-03-20] MEDS: sodium polystyrene sulfonate 15 gm/60 mL Btl PO (08:55)
[2023-03-20] MEDS: apixaban 5 mg Tablet PO ×2 (08:55→17:37)
--- NOTE | 2023-03-20 09:10 | PM.PN ---
Vitals/I&O/Wt Last Vital Signs Temp 97.0 F L 03/20/23 08:00 Pulse 80 03/20/23 08:00 Resp 25 H 03/20/23 08:00 BP 122/67 03/20/23 08:00 Pulse Ox 94 03/20/23 08:00 O2 Del Method Room Air 03/20/23 08:00 O2 Flow Rate 2 03/19/23 21:09 03/19/23 03/20/23 03/20/23 22:59 06:59 14:59 Intake Total 220 / 820 560 / 1380 120 / 120 Balance 220 / 820 560 / 1380 120 / 120 Weight last 48 hrs Weight 122 lb 4.8 oz Weight 120 lb Weight 120 lb Data 03/20/23 04:33 03/20/23 11:20 Coding Level of Care Code Acute Code for Chg Fwd
[2023-03-20] MEDS: duloxetine 20 mg Capsule PO (09:14)
[2023-03-20 11:53] LABS: Anion Gap 20.3 (5-19); Blood Urea Nitrogen 28 mg/dL (8-23); Calcium 9.2 mg/dL (8.5-10.5); Carbon Dioxide 18 mmol/L (22-29); Chloride 102 mmol/L (98-107); Glucose 157 mg/dL (65-115); Osmolality Calculated 291 mOsm/kg (285-295); Potassium 4.3 mmol/L (3.5-5.1); Sodium 136 mmol/L (136-145)
[2023-03-20] MEDS: dilTIAZem ER (24HR) 120 mg Capsule PO (13:45)
[2023-03-20] MEDS: metoprolol tartrate 1 mg/1 mL SDV 5 mL 5 MG IVP (15:24)
[2023-03-20] MEDS: metoprolol tartrate 25 mg Tablet PO (21:16)
[2023-03-21] VITALS (7 sets, daily range): BP systolic 117–136; BP diastolic 61–81; PULSE 84–100; RESP 12–30; TEMP 36.4–37; O2SAT 94–96
[2023-03-21 03:53] LABS: Basophils # 0.1 10^3/uL (0.0-0.1); Basophils % 0.6 %; Eosinophils # 0.2 10^3/uL (0.0-0.8); Hematocrit 30.6 % (36-47); Lymphocytes # 1.3 10^3/uL (0.8-4.8); Lymphocytes % 16.1 %; Mean Corpuscular Hemoglobin 27.3 pg (27-33); Mean Corpuscular Volume 87.9 fl (85-98); Mean Platelet Volume 11.2 fL (7.4-10.4); Monocytes # 0.6 10^3/uL (0.2-0.9); Neutrophils # 5.75 10^3/uL (1.8-7.7); Neutrophils % 72.9 %; Nucleated Red Blood Cells % 0 %; Platelet Count 186 10^3/cmm (157-399); Red Blood Count 3.48 10^6/uL (3.85-5.65); Red Cell Distribution Width 14.3 % (12.1-15.1); White Blood Count 7.89 10^3/uL (3.29-11.43)
[2023-03-21 04:16] LABS: Anion Gap 13.4 (5-19); Blood Urea Nitrogen 25 mg/dL (8-23); Calcium 8.8 mg/dL (8.5-10.5); Carbon Dioxide 23 mmol/L (22-29); Chloride 106 mmol/L (98-107); Glucose 143 mg/dL (65-115); Osmolality Calculated 293 mOsm/kg (285-295); Potassium 4.4 mmol/L (3.5-5.1); Sodium 138 mmol/L (136-145)
[2023-03-21] MEDS: famotidine 20 mg Tablet PO (08:54)
[2023-03-21] MEDS: metoprolol tartrate 25 mg Tablet PO (08:54)
[2023-03-21] MEDS: duloxetine 20 mg Capsule PO (08:54)
[2023-03-21] MEDS: apixaban 5 mg Tablet PO (08:54)
[2023-03-21] MEDS: dilTIAZem ER (24HR) 180 mg Capsule 360 MG PO (08:54)
--- NOTE | 2023-03-21 13:11 | P.DS_ITS ---
Discharge Providers Date of Admission: 03/18/23 13:55 Date of Discharge: March 21, 2023 Attending Provider at Admission: Ar Humphries MD Attending Provider at Discharge: Tapan Swan MD Primary Care Provider: Nixon Swanson MD Diagnoses at Discharge Discharge Diagnosis (1) Afib: Status: Acute (2) Congestive heart failure: Status: Acute (3) Hyperkalemia: Status: Acute (4) Acute kidney injury: Status: Acute Reason for Visit Reason for Visit: SOB Brief History: History as per HPI: Mary Harmon is a 82 year old female who presented to the ED today with SOB and was noted to have a heart rhythm Afib with RVR. Patient denies chest pain at this time and does not appear to have any difficulty breathing. Patient noted to be sitting up on the edge of the bed with daughter at bedside. Mrs. Harmon stated that she has a history of a Afib and is currently taking diltiazem 360mg ER DAILY and Eliqus 5mg PO BID at home but she ran out of the medication about 4 days ago. Patient reports that she can intermittently feel heart palpitations and that she had been feeling them over the last few days but they go away quickly. Overnight patent became more symptomatic with shortness of breath and this is what brought her to the ED. Patient denies any recent medication changes but does complain about her stomach feeling bloated over the last few days, abd distention noted.Patient denies bloody/black tarry stools. Patient received metoprolol 25mg PO and started on Cardizem drip in ED Hospital Course Hospital Course Patient was admitted for further evaluation and management of A-fib with RVR with some concerns for diastolic heart failure. She was alert for started on Cardizem drip which were later transitioned over to oral Cardizem. She was started on aggressive IV diuresis. She responded well to the treatment and heart rate has been well-controlled. Her hospitalization was complicated by patient developing acute kidney injury because of aggressive IV diuresis for which she received few fluid boluses. Her creatinine is back to baseline. She has been discharged in hemodynamically stable condition. She has been counseled detail about fluid restriction up to 1500 cc. Her dose of metoprolol succinate has been switched over to metoprolol tartrate 25 mg twice daily. Physical Exam Narrative: General exam is white female, conversant in no distress HEENT: Atraumatic. Oropharynx clear Neck is supple Cardiovascular irregular, irregular with accelerated rate. I do not auscultate a murmur. Lungs clear but with diminished breath sounds bilaterally Abdomen is soft. Bowel sounds noted. No obvious organomegaly exam is deferred Extremities no cyanosis clubbing or edema, cap refill brisk Skin no rash Neuro no obvious focal deficits. Discharge Data Studies Completed and Pending Completed Studies During Hospitalization Category Date Time Status XR chest 1V portable [id number] Routine Exams 03/18/23 15:20 Completed Radiology Impressions Chest X-Ray 03/18/23 15:20 IMPRESSION: New bilateral pulmonary opacities, though greater in the left lower lobe, with associated pleural effusion. Differential diagnosis would include pneumonia or asymmetric pulmonary edema. Pneumonia is favored. ADDENDUM: 03/18/23 1610 COMMENT: THIS REPORT CONTAINS FINDINGS THAT MAY BE CRITICAL TO PATIENT CARE. The exam findings were verbally communicated by me to AR HUMPHRIES via telephone conference at 4:08 PM MEDIA MANAGER on 03/18/2023. The findings were acknowledged and understood. Laboratory Results WBC 7.89 10^3/uL (3.29-11.43) 03/21/23 03:36 RBC 3.48 10^6/uL (3.85-5.65) L 03/21/23 03:36 Hgb 9.50 g/dL (11.27-16.99) L 03/21/23 03:36 Hct 30.6 % (36-47) L 03/21/23 03:36 MCV 87.9 fl (85-98) D 03/21/23 03:36 MCH 27.3 pg (27-33) 03/21/23 03:36 MCHC 31.0 g/dL (30-55) D 03/21/23 03:36 RDW 14.3 % (12.1-15.1) 03/21/23 03:36 Plt Count 186 10^3/cmm (157-399) 03/21/23 03:36 MPV 11.2 fL (7.4-10.4) H 03/21/23 03:36 Neut % (Auto) 72.9 % 03/21/23 03:36 Lymph % (Auto) 16.1 % 03/21/23 03:36 [place] % (Auto) 8.0 % 03/21/23 03:36 Eos % (Auto) 2.0 % 03/21/23 03:36 Baso % (Auto) 0.6 % 03/21/23 03:36 Neut # (Auto) 5.75 10^3/uL (1.8-7.7) 03/21/23 03:36 Lymph # (Auto) 1.3 10^3/uL (0.8-4.8) 03/21/23 03:36 [place] # (Auto) 0.6 10^3/uL (0.2-0.9) 03/21/23 03:36 Eos # (Auto) 0.2 10^3/uL (0.0-0.8) 03/21/23 03:36 Baso # (Auto) 0.1 10^3/uL (0.0-0.1) 03/21/23 03:36 Nucleated RBC % (auto) 0 % 03/21/23 03:36 Nucleated RBCs # 0.0 /100WBC 03/21/23 03:36 Sodium 138 mmol/L (136-145) 03/21/23 03:36 Potassium 4.4 mmol/L (3.5-5.1) 03/21/23 03:36 Chloride 106 mmol/L (98-107) 03/21/23 03:36 Carbon Dioxide 23 mmol/L (22-29) 03/21/23 03:36 Anion Gap 13.4 (5-19) 03/21/23 03:36 BUN 25 mg/dL (8-23) H 03/21/23 03:36 Creatinine 0.8 mg/dL (0.5-0.9) 03/21/23 03:36 GFR Calculation Not Reportable 03/21/23 03:36 Glucose 143 mg/dL (65-115) H 03/21/23 03:36 Calculated Osmolality 293 mOsm/kg (285-295) 03/21/23 03:36 Calcium 8.8 mg/dL (8.5-10.5) 03/21/23 03:36 Magnesium 2.1 mg/dL (1.7-2.3) 03/20/23 04:33 Total Bilirubin 0.5 mg/dL (0.15-1.2) 03/18/23 06:06 AST 13 U/L (0-32) 03/18/23 06:06 ALT 10 U/L (0-33) 03/18/23 06:06 Alkaline Phosphatase 171 U/L (35-105) H 03/18/23 06:06 Troponin T Baseline 10 ng/L (0-10) 03/18/23 06:06 Troponin T 120 Minute 9.23 ng/L (0-10) 03/18/23 08:11 Delta Troponin T -0.77 ABS# (0-10) L 03/18/23 08:11 Troponin T Hi Sens 6Hr 9.42 ng/L (0-10) 03/18/23 13:15 Troponin T Hi Sens 6Hr Delta -0.58 ng/L (0-12) L 03/18/23 13:15 Total Protein 7.4 g/dL (6.6-8.7) 03/18/23 06:06 Albumin 4.2 g/dL (3.5-5.2) 03/18/23 06:06 Globulin 3.2 g/dL (1.3-4.6) 03/18/23 06:06 TSH 5.52 uIU/mL (0.27-4.20) H 03/18/23 06:06 Urine Color Dark yellow (Yellow) 03/18/23 04:44 Urine Appearance Hazy (CLEAR) A 03/18/23 04:44 Urine pH 5 (5-7) 03/18/23 04:44 Ur Specific [place] 1.025 (1.005-1.030) 03/18/23 04:44 Urine Protein Trace (Negative) 03/18/23 04:44 Urine Glucose (UA) Norm (Normal) 03/18/23 04:44 Urine Ketones 1+ (Negative) H 03/18/23 04:44 Urine Blood Neg (Negative) 03/18/23 04:44 Urine Nitrate Negative (Negative) 03/18/23 04:44 Urine Bilirubin 1+ (Negative) H 03/18/23 04:44 Urine Urobilinogen Neg mg/dL (Negative) 03/18/23 04:44 Ur Leukocyte Esterase Trace (Negative) H 03/18/23 04:44 Urine RBC 0-4 /hpf (0-2) H 03/18/23 04:44 Urine WBC 0-4 /hpf (0-5) H 03/18/23 04:44 Ur Squamous Epith Cells 15-25 /hpf (0-5) H 03/18/23 04:44 Calcium Oxalate Crystal 10-15 /hpf H 03/18/23 04:44 Amorphous Sediment Not Reportable 03/18/23 04:44 Urine Bacteria 2+ /hpf (NONE) H 03/18/23 04:44 Hyaline Casts 0-4 /lpf H 03/18/23 04:44 Urine Mucus 1+ /hpf 03/18/23 04:44 Vitals Last Vital Signs Temp 97.7 F 03/21/23 11:30 Pulse 88 03/21/23 11:30 Resp 12 03/21/23 11:30 BP 125/68 03/21/23 11:30 Pulse Ox 94 03/21/23 11:30 O2 Del Method Room Air 03/21/23 11:30 O2 Flow Rate 2 03/19/23 21:09 Discharge Plan Discharge Patient Disposition: Home Condition: Stable Prescriptions: New metoprolol tartrate 25 mg Tablet 25 mg PO BID@0900,2100 Qty: 60 0RF Continued (DME) Straps for leg splints See Rx Instructions .Route .MEDSUPPLY Qty: 1 0RF Rx Instructions: As directed (DME) Right knee brace hinged See Rx Instructions .Route .MEDSUPPLY Qty: 1 0RF Rx Instructions: As directed (DME) Right leg brace straps See Rx Instructions .Route .MEDSUPPLY Qty: 1 0RF Rx Instructions: As directed. Leg brace is not working well as straps are broken. (DME) oxygen 2L bnc continuous. See Rx Instructions .Route .MEDSUPPLY Qty: 1 0RF Rx Instructions: As directed (DME) blood-glucose meter Kit See Rx Instructions .Route Qty: 1 0RF Rx Instructions: use daily to check blood sugars (DME) blood sugar diagnostic Strip See Rx Instructions .Route Qty: 50 3RF Rx Instructions: As directed (DME) New left leg brace for shoe See Rx Instructions .Route .MEDSUPPLY Qty: 1 0RF Rx Instructions: As directed (DME) new left AFO and repairs to right AFO See Rx Instructions .Route .MEDSUPPLY Qty: 1 0RF Rx Instructions: As directed (DME) lancets [2-In-1 Lancet Device] 30 gauge misc See Rx Instructions .ROUTE .MEDSUPPLY Qty: 100 2RF Rx Instructions: As directed (DME) Diabetic shoes with build up on right for heighth See Rx Instructions .Route .MEDSUPPLY Qty: 1 0RF Rx Instructions: As directed nitroglycerin 0.4 mg tablet, sublingual See Rx Instructions .ROUTE .COMPLEX Qty: 25 2RF Dose Instruction: DISSOLVE 1 TABLET UNDER THE TONGUE EVERY 5 MINUTES NEEDED FOR CHEST PAIN. DO NOT EXCEED A TOTAL OF 3 DOSES IN 15 MINUTES. Rx Instructions: DISSOLVE 1 TABLET UNDER THE TONGUE EVERY 5 MINUTES NEEDED FOR CHEST PAIN. DO NOT EXCEED A TOTAL OF 3 DOSES IN 15 MINUTES. cyanocobalamin (vitamin B-12) 1,000 mcg/mL solution See Rx Instructions .ROUTE .COMPLEX Qty: 1 3RF Dose Instruction: inject 1 ML INTRAMUSCULARLY EVERY 30 DAYS Rx Instructions: inject 1 ML INTRAMUSCULARLY EVERY 30 DAYS DILT-XR 180 mg capsule,ext.rel 24h degradable 360 mg PO DAILY Qty: 60 3RF digestive enzymes Tablet 1 tab PO DAILY Eliquis 5 mg tablet 5 mg PO BID duloxetine 20 mg capsule,delayed release(DR/EC) 20 mg PO DAILY furosemide 40 mg tablet 40 mg PO QAM potassium chloride 20 mEq/15 mL liquid 20 meq PO DAILY famotidine 20 mg tablet 20 mg PO BID Rx Instructions: TAKE ONE TABLET BY MOUTH TWICE DAILY Discontinued metoprolol succinate 25 mg tablet extended release 24 hr 25 mg PO DAILY Discharge Orders: Discharge Order (Routine); Ordered 03/21/23 Ordered By: Tapan Swan Referrals: Nixon Swanson MD [Primary Care Provider] - (Please call Dr. Swanson's Office on Thursday at [phone] to schedule a follow up appointment. Thank you.) Discharge Diet: Cardiac Discharge Activity: Resume usual activity and Increase activity as tolerated Patient Instructions: Metoprolol (By mouth) (Lopressor, Toprol XL), Heart Failure (DC), A-fib (Atrial Fibrillation) (DC), Acute Kidney Injury (DC), CHF Stoplight, Opioid Safety Activity Restrictions/Additional Instructions: Fluid restriction up to 1500 cc. Metoprolol succinate has been switched over to metoprolol tartrate 25 mg twice daily. Please follow-up with a primary care provider within next 1 week. Discharge Attestations Time Spent in Discharge Care*: greater than 30 min Quality Metrics Clinical Quality Measures [ No reported AMI, CVA or VTE this stay] Coding Level of Care Code Acute Code for Chg Fwd Diagnoses Afib I48.91 Congestive heart failure I50.9 Hyperkalemia E87.5 Acute kidney injury N17.9
== END 2023-03-21 15:20 | disposition home or self-care (01) ==
LOC: ER 06:33 → CSU 16:11
PROVIDERS: Admitting Provider Internal Medicine; Emergency Provider Family Medicine; PCP Internal Medicine; Visit Provider Student in an Organized Health Care Education/Training Program
DX: I48.91 Unspecified atrial fibrillation (principal); I11.0 Hypertensive heart disease with heart failure; I50.9 Heart failure, unspecified; E87.5 Hyperkalemia; N17.9 Acute kidney failure, unspecified; R06.02 Shortness of breath; Z79.01 Long term (current) use of anticoagulants; E11.9 Type 2 diabetes mellitus without complications; E78.5 Hyperlipidemia, unspecified; M81.0 Age-related osteoporosis without current pathological fracture
CPT/HCPCS: 36415; 51798; 71045; 80048; 80053; 81001; 81015; 83735; 84443; 84484; 85025; 93005; 96365; 96375; 96376; 99285; G0378; J1940; J2405; J3490; J7040

== ENCOUNTER 2023-08-26 06:00 | Outpatient (RCR) | payer MEDICARE, MEDICAID, SELFPAY | END 2023-09-18 23:59 | disposition home or self-care (01) | LOC: APT 06:00 | PROVIDERS: Visit Provider Internal Medicine | DX: R29.6 Repeated falls (principal) | CPT/HCPCS: 97110; 97162; 97530 ==

== ENCOUNTER 2023-09-19 06:00 | Outpatient (RCR) | payer MEDICARE, MEDICAID, SELFPAY | END 2023-10-18 23:59 | disposition home or self-care (01) | LOC: APT 06:00 | PROVIDERS: Visit Provider Internal Medicine | DX: R29.6 Repeated falls (principal) | CPT/HCPCS: 97110; 97112; 97530 ==

== ENCOUNTER 2023-10-19 06:00 | Outpatient (RCR) | payer MEDICARE, MEDICAID, SELFPAY | END 2023-11-18 23:59 | disposition home or self-care (01) | LOC: APT 06:00 | PROVIDERS: Visit Provider Internal Medicine | DX: R29.6 Repeated falls (principal) | CPT/HCPCS: 97110; 97112; 97530 ==

== ENCOUNTER 2024-03-22 11:33 | Emergency (ER) | payer MEDICARE, MEDICAID, SELFPAY ==
[2024-03-22 11:45] VITALS: BP 150/68; PULSE 92; RESP 18; TEMP 36.6; O2SAT 97
--- NOTE | 2024-03-22 11:45 | XR_ITS ---
WS: [email or web address] XR lumbar spine 2-3V* [id number] REASON FOR EXAM: trauma FINDINGS: Moderate rotatory dextroscoliosis. There is a wedge-shaped compression deformity of T11, biconcave compression deformity of T12, superio r endplate compression of L1 and L2. The degree of deformity of these vertebral bodies was not presen t on the most recent previous examination of of 10/07/20192018, which makes the chronicity uncertain. The lumbar spine is otherwise unchanged compared to 10/06/2018. XR/XR lumbar spine 2-3V* [id number] IMPRESSION: Thoracolumbar compression deformities as above. While the T11 compression defor mity may be old the compression deformities T12-L2 could potentially be acute/s ubacute.
--- NOTE | 2024-03-22 11:45 | XR_ITS ---
WS: [email or web address] XR cervical spine 3V* [id number] REASON FOR EXAM: trauma FINDINGS: There is some straightening of the normal lordosis. There is a mild biconcave compression deformity of C5 which appears old. C6 is not well demonstrated on the lateral. Remaining vertebral bodies are intact without findings of acute compression fracture. Significant narrowing of the C4-C5 disc space. Significant osteophytosis of the C4 and C5 vertebral b odies. No significant vertebral body listhesis. The facet joint alignment appears normal. XR/XR cervical spine 3V* [id number] IMPRESSION: No acute abnormality identified on the examination with limitation as above.
--- NOTE | 2024-03-22 11:46 | XR_ITS ---
WS: [email or web address] XR pelvis 1-2V* [id number] REASON FOR EXAM: trauma FINDINGS: Total right hip arthroplasty. Components of the arthroplasty are intact and in proper position and alignment. Proximal femur, nativ e acetabulum, and the superior and inferior pubic rami on the right are intact. No acute abnormality in the remainder of the bony pelvis. XR/XR pelvis 1-2V* [id number] IMPRESSION: No acute abnormality.
--- NOTE | 2024-03-22 12:20 | PC.PHAR ---
Pt picked up Vitamin b 12 injection but it has not been given yet.
--- NOTE | 2024-03-22 12:25 | ED_ITS ---
HPI - Fall General: Chief Complaint: Fall Stated Complaint: fell on back and needs xray Time Seen by Provider: 03/22/24 11:38 History of Present Illness: 83-year-old female who presents to the e mergency room 4 days after a fall. She was at home had a ground-level mechanical fall relatively her back she has been able to bear weight since then she is complaining of primarily of low back pain and some neck pain. She initially had a bit of a headache that is resolved she also had some left knee pain that is also resolved and she has been ambulating. She has no vision changes no vomiting. Associated symptoms-after fall: Denies abdominal pain, chest pain or neck pain Related Data Home Medications Medication Instructions Recorded Confirmed digestive enzymes 1 tab PO DAILY 01/29/22 03/22/24 apixaban 5 mg tablet (Eliquis) 5 mg PO BID 03/18/23 03/22/24 duloxetine 20 mg capsule,delayed 20 mg PO DAILY 03/18/23 03/22/24 release famotidine 20 mg tablet 20 mg PO BID 03/18/23 03/22/24 furosemide 40 mg tablet 40 mg PO QAM 03/18/23 03/22/24 potassium chloride 20 mEq/15 mL 20 meq PO DAILY 03/18/23 03/22/24 oral liquid cyanocobalamin (vitamin B-12) 1,000 mcg IM .Q30D 03/22/24 03/22/24 1,000 mcg/mL injection solution fluticasone furoate 27.5 1 spray intranasal DAILY 03/22/24 03/22/24 mcg/actuation nasal spray,suspension (Children's Flonase Sensimist) memantine 10 mg tablet 10 mg PO DAILY 03/22/24 03/22/24 metoprolol succinate 25 mg 25 mg PO DAILY 03/22/24 03/22/24 tablet,extended release 24 hr Previous Rx's Medication Instructions Recorded lancets 30 gauge (2-In-1 Lancet #100 ea 05/06/19 Device) Right knee brace hinged #1 ea 11/18/19 Right leg brace straps #1 ea 11/18/19 Straps for leg splints #1 ea 05/22/20 Diabetic shoes with build up on #1 ea 05/24/20 right for heighth New left leg brace for shoe #1 ea 08/22/21 new left AFO and repairs to right #1 ea 12/04/21 AFO oxygen 2L bnc continuous. #1 ea 02/26/22 blood sugar diagnostic #50 ea 08/08/22 blood-glucose meter #1 ea 08/08/22 nitroglycerin 0.4 mg sublingual See Rx Instructions .Route 08/21/22 tablet .COMPLEX #25 tabs diltiazem HCl 180 mg 360 mg (2 x 180 mg) PO DAILY #60 01/22/23 capsule,extended release 24 hr, caps controlled (DILT-XR) diclofenac sodium 75 mg 75 mg PO Q12H PRN pain #20 tabs 03/22/24 tablet,delayed release tizanidine 4 mg tablet 4 mg PO Q6H PRN muscle spasticity 03/22/24 #20 tabs Allergies Allergy/AdvReac Type Severity Reaction Status Date / Time No Known Allergies Allergy Verified 03/18/23 07:32 Review of Systems Const: Denies: fever(s) or chills Card: Denies: chest pain Resp: Denies: dyspnea GI: Denies: abdominal pain : Denies: dysuria, urinary frequency or urinary urgency Musc: Denies: neck pain or back pain Skin/Breast: Denies: rash PFSH ED PFSH: Medical History Depression with anxiety Atrial fibrillation with rapid ventricular response Dermoid cyst of left lower extremity Hyponatremia Vitamin B12 deficiency Anxiety Tricuspid valve regurgitation, nonrheumatic Acquired deformity of both feet foot drop and pronation with callous Acquired short leg syndrome on right Degenerative arthritis of knee right Chronic instability of knee, right knee Osteoporosis Breast nodule right Gait disorder History of post-polio syndrome Type 2 diabetes mellitus without complications Dyslipidemia Essential (primary) hypertension Gastro-esophageal reflux disease without esophagitis Chronic diarrhea Surgical History History of right hip replacement History of hip surgery Hx of cholecystectomy (~2001) H/O: hysterectomy (~1991) Hx of colonoscopy (~2012) Family History Father Cancer lung Mother Diabetes Stroke Hypertension Social History (Reviewed 03/22/24 @ 12:26 by ERLIN Randle Smoking and tobacco/nicotine status: never used tobacco/nicotine Alcohol intake: never Substance/Drug Use: never Adopted: No Lives independently: Yes Household members: none Housing: House Marital status: / Number of children: 3 Highest education level completed: High School Graduate service: No Current occupational status: retired Pets and animals: Yes Current gender identity: Female Physical Exam Const: GENERAL APPEARANCE: cooperative ORIENTATION/CONSCIOUSNESS: Yes awake, Yes oriented to person, Yes oriented to place and Yes oriented to time HENMT: COMMON NORMALS: normocephalic, atraumatic and hearing grossly normal bilaterally HEAD & SCALP: normocephalic and atraumatic Resp: COMMON NORMALS: normal respiratory effort, No retractions, No use of accessory muscles and clear to auscultation bilaterally AUSCULTATION: clear to auscultation bilaterally Cardio: COMMON NORMALS: regular rate, regular rhythm and No murmurs present (Cardio) RATE: regular rate RHYTHM: regular rhythm GI: COMMON NORMALS: Soft to palpation and No hepatosplenomegaly present AUSCULTATION: Yes normoactive bowel sounds PALPATION: Yes Soft to palpation, No Tenderness to palpation present (GI), No Guarding due to palpation present (GI) and Yes No hepatosplenomegaly present Extremity: COMMON NORMALS: normal to inspection, capillary refill normal, no clubbing, cyanosis or edema, no calf tenderness and no pedal edema Neuro: SENSORIUM/ORIENTATION: Yes oriented to person, Yes oriented to place and Yes oriented to time Skin: COMMON NORMALS: no rashes or lesions noted GENERAL SKIN EXAM: no rashes or lesions noted Course Vital Signs: Vital signs: Vital Signs Temperature 97.8 F 03/22/24 11:45 Pulse Rate 83 03/22/24 13:02 Respiratory Rate 18 03/22/24 11:45 Blood Pressure 108/88 03/22/24 13:02 Pulse Oximetry 95 03/22/24 13:02 MDM - Fall Medical Decision Making X-rays of the lumbar spine cervical spine and pelvis did not show any acute fractures. Patient has hardware in the right hip from previous arthroplasty appears in place no displacement no fractures. Will discharge patient home diclofenac tizanidine to use as needed follow-up as needed Medical Records I reviewed the patient's medical records. Lab Data Radiology Impressions Cervical Spine X-Ray 03/22/24 11:45 IMPRESSION: No acute abnormality identified on the examination with limitation as above. Lumbar Spine X-Ray 03/22/24 11:45 IMPRESSION: Thoracolumbar compression deformities as above. While the T11 compression deformity may be old the compression deformities T12-L2 could potentially be acute/subacute. Pelvis X-Ray 03/22/24 11:46 IMPRESSION: No acute abnormality. All radiology interpretation(s) finalized by discharge Discharge Plan Discharge Patient Disposition: Home Clinical Impression: Back pain, Fall Condition: Stable Prescriptions: New tizanidine 4 mg tablet 4 mg PO Q6H PRN (Reason: muscle spasticity) Qty: 20 0RF Rx Instructions: do not exceed 3 doses per 24 hrs diclofenac sodium 75 mg tablet,delayed release (DR/EC) 75 mg PO Q12H PRN (Reason: pain) Qty: 20 0RF No Action (DME) Straps for leg splints See Rx Instructions .Route .MEDSUPPLY Qty: 1 0RF Rx Instructions: As directed (DME) Right knee brace hinged See Rx Instructions .Route .MEDSUPPLY Qty: 1 0RF Rx Instructions: As directed (DME) Right leg brace straps See Rx Instructions .Route .MEDSUPPLY Qty: 1 0RF Rx Instructions: As directed. Leg brace is not working well as straps are broken. (DME) oxygen 2L bnc continuous. See Rx Instructions .Route .MEDSUPPLY Qty: 1 0RF Rx Instructions: As directed (DME) blood-glucose meter Kit See Rx Instructions .Route Qty: 1 0RF Rx Instructions: use daily to check blood sugars (DME) blood sugar diagnostic Strip See Rx Instructions .Route Qty: 50 3RF Rx Instructions: As directed (DME) New left leg brace for shoe See Rx Instructions .Route .MEDSUPPLY Qty: 1 0RF Rx Instructions: As directed (DME) new left AFO and repairs to right AFO See Rx Instructions .Route .MEDSUPPLY Qty: 1 0RF Rx Instructions: As directed (DME) lancets [2-In-1 Lancet Device] 30 gauge misc See Rx Instructions .ROUTE .MEDSUPPLY Qty: 100 2RF Rx Instructions: As directed (DME) Diabetic shoes with build up on right for heighth See Rx Instructions .Route .MEDSUPPLY Qty: 1 0RF Rx Instructions: As directed nitroglycerin 0.4 mg tablet, sublingual See Rx Instructions .ROUTE .COMPLEX Qty: 25 2RF Dose Instruction: DISSOLVE 1 TABLET UNDER THE TONGUE EVERY 5 MINUTES NEEDED FOR CHEST PAIN. DO NOT EXCEED A TOTAL OF 3 DOSES IN 15 MINUTES. Rx Instructions: DISSOLVE 1 TABLET UNDER THE TONGUE EVERY 5 MINUTES NEEDED FOR CHEST PAIN. DO NOT EXCEED A TOTAL OF 3 DOSES IN 15 MINUTES. DILT-XR 180 mg capsule,ext.rel 24h degradable 360 mg PO DAILY Qty: 60 3RF digestive enzymes Tablet 1 tab PO DAILY Eliquis 5 mg tablet 5 mg PO BID duloxetine 20 mg capsule,delayed release(DR/EC) 20 mg PO DAILY furosemide 40 mg tablet 40 mg PO QAM potassium chloride 20 mEq/15 mL liquid 20 meq PO DAILY famotidine 20 mg tablet 20 mg PO BID memantine 10 mg tablet 10 mg PO DAILY Children's Flonase Sensimist 27.5 mcg/actuation spray,suspension 1 spray INTRANASAL DAILY cyanocobalamin (vitamin B-12) 1,000 mcg/mL solution 1,000 mcg IM .Q30D metoprolol succinate 25 mg tablet extended release 24 hr 25 mg PO DAILY Discharge Orders: Discharge ED (Routine); Ordered 03/22/24 Ordered By: Olman Fonseca Referrals: TEMP,ED [Primary Care Provider] - Discharge Diet: Usual diet Discharge Activity: Increase activity as tolerated Patient Instructions: Opioid Safety, Pain Management Activity Restrictions/Additional Instructions: Thank you for choosing [facility] for your healthcare needs today. It is very important that you follow up as instructed or that you return to the Emergency Department should you have concerns or if your condition changes or worsens in any way. You were seen today for days after a fall x-ray of your pelvis your lumbar spine and your neck did not show any acute fractures. You can use diclofenac and tizanidine you are given to help with pain you can also apply ice. You likely continue to be sore for several more days. Coding Level of Care Code ED Mission Worker for Reuben Mahoney
[2024-03-22 13:02] VITALS: BP 108/88; PULSE 83; O2SAT 95
== END 2024-03-22 13:03 | disposition home or self-care (01) ==
PROVIDERS: Emergency Provider Family Medicine
DX: M54.50 Low back pain, unspecified (principal); W19.XXXA Unspecified fall, initial encounter; E11.9 Type 2 diabetes mellitus without complications; I10 Essential (primary) hypertension; E78.5 Hyperlipidemia, unspecified
CPT/HCPCS: 72040; 72100; 72170; 99284

== ENCOUNTER → 2024-10-10 13:20 | Outpatient (BNVA) | payer MEDICARE, MEDICAID, SELFPAY | PROVIDERS: PCP Nurse Practitioner Family; Visit Provider Nurse Practitioner Family | DX: E11.9 Type 2 diabetes mellitus without complications (principal); E11.8 Type 2 diabetes mellitus with unspecified complications; E55.9 Vitamin D deficiency, unspecified | CPT/HCPCS: 80053; 80061; 82306; 82607; 83036; 84443; 85025 ==

== ENCOUNTER 2024-10-17 09:43 | Outpatient (CLI) | payer MEDICARE, MEDICAID, SELFPAY ==
--- NOTE | 2024-10-17 10:15 | USR_ITS ---
PROCEDURE INFORMATION: Exam: US Abdomen Complete Exam date and time: 10/17/2024 10:33 AM Age: 84 years old Clinical indication: Other: Abdominal distension (gaseous); Additional info: R14.0 - abdominal distension (gaseous) TECHNIQUE: Imaging protocol: Real-time ultrasound of the abdomen with image documentation. Complete exam. COMPARISON: US abdomen complete* [id number] 07/29/2018 9:43 AM FINDINGS: Liver: Echogenic, consistent with fatty infiltration. 1.7 x 1.1 x 1.3 cm echogenic lesion in the left hepatic lobe, likely a hemangioma. Gallbladder: Surgically absent. Biliary ducts: Normal. No stones. No dilation. Pancreas: Unremarkable as visualized. Right kidney: No mass. No definite stones. No hydronephrosis. Left kidney: No mass. No definite stones. No hydronephrosis. Spleen: Unremarkable. Aorta: Unremarkable as visualized. No aneurysm. Inferior vena cava: Unremarkable as visualized. US/US abdomen complete* [id number] IMPRESSION: 1. Fatty liver. 2. Additional findings, as above.
== END 2024-10-17 09:44 | disposition home or self-care (01) ==
LOC: RAD 09:44
PROVIDERS: PCP Nurse Practitioner Family; Visit Provider Nurse Practitioner Family
DX: R14.0 Abdominal distension (gaseous) (principal); K76.0 Fatty (change of) liver, not elsewhere classified; R93.2 Abnormal findings on diagnostic imaging of liver and biliary tract
CPT/HCPCS: 76700

== ENCOUNTER → 2025-04-03 10:36 | Outpatient (BNVA) | payer MEDICARE, MEDICAID, SELFPAY | PROVIDERS: PCP Nurse Practitioner Family; Visit Provider Nurse Practitioner Family | DX: E55.9 Vitamin D deficiency, unspecified (principal); E11.69 Type 2 diabetes mellitus with other specified complication | CPT/HCPCS: 80053; 80061; 82306; 82607; 83036; 84439; 84443; 85025 ==